=== PATIENT | male | born 1955 | race Caucasian/White ===

== ENCOUNTER 2017-12-07 07:40 | Day surgery (SDC) | payer OTHER, SELFPAY ==
[2017-12-07 07:59] VITALS: BP 142/70; PULSE 85; RESP 14; TEMP 36.7; O2SAT 96; BMI 23.6
[2017-12-07] MEDS: MethylPREDNISolone Acetate 80 MG/ML Vial (08:56)
[2017-12-07] MEDS: Bupivacaine 0.25% 30 ML Vial (08:56)
--- NOTE | 2017-12-07 09:00 | RAD_ITS ---
PROCEDURE: Cervical facet joint block. DATE OF EXAMINATION: December 07, 2017. INDICATION: Male, 62 years old. Chronic neck pain. FLUOROSCOPY TIME (if supplied): (0:11) minutes/seconds Intraoperative fluoroscopic imaging provided for left C4-C7 facet joint block. RAD/Cerv Spine 2 or 3 Views IMPRESSION: Intraoperative imaging provided for left C4-C7 facet joint block. Electronically Signed: Georgi Marcus MD at 9:46 EST Tel [phone], Service support ,
[2017-12-07 09:17] VITALS: BP 142/70; PULSE 88; RESP 16; TEMP 36.8; O2SAT 97
[2017-12-07 09:20] VITALS: BP 113/65; BP 142/70; PULSE 85; RESP 16; O2SAT 95
[2017-12-07 09:25] VITALS: BP 113/70; BP 142/70; PULSE 82; RESP 16; O2SAT 96
[2017-12-07 09:30] VITALS: BP 123/77; BP 142/70; PULSE 80; RESP 16; TEMP 36.7; O2SAT 95
[2017-12-07 09:55] VITALS: BP 142/70
--- NOTE | 2017-12-07 13:27 | OP.PCM_ITS ---
Problem List (1) Cervical spondylosis Status: Chronic (2) Degenerative disc disease, cervical Status: Chronic Report of Operation Date of Procedure: 12/07/17 Pre-Operative Diagnosis: Cervical spondylosis, cervical degenerative disc disease, cervical facet arthropathy Post-Operative Diagnosis: Cervical spondylosis, cervical degenerative disc disease, cervical facet arthropathy Surgery/Procedure Performed:: Left cervical facet steroid injection C4, C5, C6, C7 Description of Surgical Findings:: PROCEDURE: Left-sided cervical facet steroid injection C4, C5, C6, C7 PREOPERATIVE DIAGNOSES: Cervical spondylosis, cervical degenerative disc disease, and cervical facet arthropathy POSTOPERATIVE DIAGNOSES: Cervical spondylosis, cervical degenerative disc disease, and cervical facet arthropathy ANESTHESIA: MAC COMPLICATIONS: None BLOOD LOSS: Minimal PROCEDURE IN DETAIL: History and physical today was reviewed. Risks and benefits of the procedure were explained. The patient understood, agreed to our procedure, and informed consent was obtained. IV inserted per routine protocol. The patient was taken to the operating room, placed in a prone position with a pillow positioned underneath the chest. The neck area was prepped and draped in a sterile fashion using iodine x3. Under fluoroscopy guidance, on AP view, C4 through C7 vertebral bodies were visualized. . Under direct visualization with fluoroscopy at approximately 15-degree angle, starting on the left C4, ending on the left C7, passing through the C5-C6 using a 25-gauge 3-1/2 inch spinal needle, the needle was passed through the skin. The tip of the needle was maneuvered and directed towards the apophyseal junction of each corresponding vertebra. Once the tip of the needle was at the vicinity of the medial branch and in contact with the bone, the needle was redirected more lateral towards the medial branch. Once in contact with the medial branch, the stylet of each needle was then removed. After negative aspiration of blood with CSF and confirmation of AP as well as oblique view, a total of 3 mL of preservative- free 0.25% Marcaine with 80 mg Depo-Medrol was injected in divided doses between those 4 levels. The needles were then removed intact. The patient experienced no signs or symptoms of intrathecal, intravascular injection. The patient experienced no paraesthesia. The procedure was completed without any apparent Difficulty or complication the patient appeared to tolerate well. ASSESSMENT AND PLAN: This is a 48-year-old Male with cervical spondylosis, cervical degenerative disc disease, and cervical facet arthropathy, status post left-sided cervical facet steroid injection C4 through C7. The patient will continue her current medications. The patient will follow up in approximately 2 weeks fo reevaluation.
== END 2017-12-07 09:56 | disposition home or self-care (01) ==
LOC: SDC 07:40 → AC 07:42
PROVIDERS: Family Provider Family Medicine; PCP Family Medicine; Visit Provider Anesthesiology Pain Medicine
PROC: 3E0U3BZ Introduction of Anesthetic Agent into Joints, Percutaneous Approach (ICD-10-PCS; CPT 64490; principal; 2017-12-07 08:55)
DX: M47.812 Spondylosis without myelopathy or radiculopathy, cervical region (principal); M50.30 Other cervical disc degeneration, unspecified cervical region; K21.9 Gastro-esophageal reflux disease without esophagitis; F17.200 Nicotine dependence, unspecified, uncomplicated
CPT/HCPCS: 64490; 72040; J7120

== ENCOUNTER 2017-12-27 09:42 | Emergency (ER) | payer OTHER, SELFPAY ==
[2017-12-27 09:43] VITALS: BP 150/81; PULSE 72; RESP 16; TEMP 36.6; O2SAT 98; BMI 23.5
--- NOTE | 2017-12-27 10:17 | ED.VISSUMM ---
- ER Visit Summary Date of Service: 12/27/17 Chief Complaint: Back pain History of Present Illness: The patient is a [address] Mora. He reports that he has lower back pain began approximately 1 week ago. It is an aching, stabbing pain in his lower back with radiation down his left leg to the level of the calf. Reports pain is 10 out of 10 at worst and 8 out of 10 currently. Is worsened by standing up straight or straightening out. Is relieved by sitting and ibuprofen. He denies any numbness or weakness in his legs. No problems with his bowels or his bladder. No groin numbness. No fever, chills, or abdominal pain. No recent trauma. No fall, MVA, or change in activity. Physical Examination: Vitals: Stable. Afebrile. General: A&O x 3. NAD. Cardiovascular exam: Regular rate and rhythm, no murmur, rub or gallop. Respiratory exam: Clear to auscultation bilaterally. No wheezes or stridor. Abdominal exam: Soft, nontender, nondistended, normal bowel sounds. No peritoneal signs. Back: Diffuse mild tenderness to palpation over the lumbar spine and the paraspinous musculature in the lumbar region. No point tenderness. Moderate tenderness to palpation in the left sciatic notch. Positive straight leg raise on the left at approximately 10?. 5/5 DF, PF, EHL bilaterally. Normal sensation to light touch throughout. Extremity: No clubbing, cyanosis, or edema. Emergency Department Course and Treatment: An [facility] report was obtained which shows only had 3 prescriptions for opiates in the past year. He is treated with morphine and Toradol IM here. Treatment Plan: The patient will be discharged with Gravity and Neurontin. Instructed to follow-up Dr. Mora in 1 week if not improving. Return to the emergency department for any worsening symptoms. Disposition: To home in improved and stable condition. Impression: 1. Acute sciatica on left. This note was generated with [employer] dictation software. It may contain incorrect words, spelling, and punctuation that were not noted in review of the chart prior to signing ED Disposition - Plan for ED Patient: Chief Complaint: Back Instructions: ED Sciatica Prescriptions: Hydrocodone Bitart/Apap 5-325 [Gravity 5/325] 1 - 2 tablet PO Q4H PRN PRN 3 Days #20 tablet PRN Reason: Pain Gabapentin [Neurontin] 300 mg PO QHS #7 capsule Referrals: Alexandre Mora MD [Primary Care Provider] - 1 Week if not improving
[2017-12-27] MEDS: Ketorolac 60 MG/2 ML Vial IM (10:52)
[2017-12-27] MEDS: HYDROmorphone 1 MG/ML Syringe IM (10:52)
[2017-12-27 11:26] VITALS: BP 140/76; PULSE 77; RESP 18; O2SAT 98
== END 2017-12-27 11:30 | disposition home or self-care (01) ==
LOC: ED 11:17
PROVIDERS: Emergency Provider Emergency Medicine; Family Provider Family Medicine; PCP Family Medicine
DX: M54.9 Dorsalgia, unspecified (principal); M54.32 Sciatica, left side; F17.200 Nicotine dependence, unspecified, uncomplicated
CPT/HCPCS: 99282

== ENCOUNTER 2018-01-18 06:17 | Day surgery (SDC) | payer OTHER, SELFPAY ==
[2018-01-18 06:33] VITALS: BP 144/77; PULSE 70; RESP 18; TEMP 36.7; O2SAT 99; BMI 23.1
--- NOTE | 2018-01-18 07:45 | RAD_ITS ---
STUDY: X-RAY - CERVICAL SPINE REASON FOR EXAM: Male, 62 years old. Left C4-C7 radiofrequency ablation. TECHNIQUE: 12 coned-down intraoperative view(s) of the cervical spine were obtained. COMPARISON: None FINDINGS: Imaging provided for left C4-C7 radiofrequency ablation. RAD/Cerv Spine 4 or 5 Views IMPRESSION: Imaging provided for intraoperative ablation at the C4-C7 levels. Electronically Signed: Georgi Marcus MD at 11:14 EDT Tel [phone], Service support ,
[2018-01-18] MEDS: MethylPREDNISolone Acetate 80 MG/ML Vial (08:01)
[2018-01-18] MEDS: Bupivacaine 0.25% 30 ML Vial (08:01)
[2018-01-18 08:30] VITALS: BP 120/71; BP 144/77; PULSE 95; RESP 16; TEMP 36.4; O2SAT 98
[2018-01-18 08:35] VITALS: BP 103/63; BP 144/77; PULSE 95; RESP 16; O2SAT 97
[2018-01-18 08:40] VITALS: BP 144/77; BP 93/62; PULSE 88; RESP 16; O2SAT 96
[2018-01-18 08:45] VITALS: BP 110/66; BP 144/77; PULSE 88; RESP 16; TEMP 36.6; O2SAT 96
[2018-01-18 09:05] VITALS: BP 144/77
--- NOTE | 2018-01-18 10:15 | OP.PCM_ITS ---
Problem List (1) Cervical spondylosis Status: Chronic (2) Degenerative disc disease, cervical Status: Chronic Report of Operation Date of Procedure: 01/18/18 Pre-Operative Diagnosis: Cervical spondylosis, cervical degenerative disc disease, cervical facet arthropathy Post-Operative Diagnosis: Cervical spondylosis, cervical degenerative disc disease, cervical facet arthropathy Surgery/Procedure Performed:: Left-sided radiofrequency ablation of the cervical medial branch at C4, C5, C6, C7 Description of Surgical Findings:: PROCEDURE: Left-sided cervical radiofrequency ablation of the medial branch C4, C5, C6, C7 PREOPERATIVE DIAGNOSES: Cervical spondylosis, cervical degenerative disc disease, and cervical facet arthropathy POSTOPERATIVE DIAGNOSES: Cervical spondylosis, cervical degenerative disc disease, and cervical facet arthropathy ANESTHESIA: MAC COMPLICATIONS: None BLOOD LOSS: Minimal PROCEDURE IN DETAIL: History and physical today was reviewed. Risks and benefits of the procedure were explained. The patient understood, agreed to our procedure, and informed consent was obtained. IV inserted per routine protocol. The patient was taken to the operating room, placed in a prone position with a pillow positioned underneath the chest. The neck area was prepped and draped in a sterile fashion using iodine x3. Under fluoroscopy guidance, on AP view, C4 through C7 vertebral bodies were visualized. Skin and subcutaneous tissues were anesthetized with approximately 10 mL of 1% lidocaine using a 25- gauge regular needle. Under direct visualization with fluoroscopy at approximately 15-degree angle, starting on the left C4, ending on the left C7, passing through the C5-C6 using a 20-gauge 10 cm with a 10 mm curved active tip radiofrequency ablation needle, the needle was passed through the skin. The tip of the needle was maneuvered and directed towards the apophyseal junction of each corresponding vertebra. Once the tip of the needle was at the vicinity of the medial branch and in contact with the bone, the needle was redirected more lateral towards the medial branch, confirmation was obtained on lateral view and the needle was advanced towards the trapezoid approximately midway once in contact with the medial branch, the stylet of each needle was then removed. After negative aspiration of blood with CSF and confirmation of AP as well as oblique view, the radiofrequency ablation probe was then inserted at each level. Impedance was then recorded at C4 to be 216, at C5 232, at C6 204, at C7 217 ohms. Motor-evoked potential was then initiated to 1.5 volt without any motor response at each corresponding level or the left arm. The radiofrequency ablation probe was then removed intact and a total of 4 mL preservative-free 1% lidocaine was injected in divided doses between those 4 levels after negative aspiration of blood with CSF. The radiofrequency ablation probe was then reinserted after confirmation of AP, oblique as well as lateral view. Radiofrequency ablation was then initiated to 80 degrees Celsius for 60 seconds at each level. Once concluded, the probe was then removed intact and a total of 3 mL of preservative-free 0.25% Marcaine with 40 mg Depo-Medrol was injected in divided doses between those 4 levels. The needles were then removed intact. The patient experienced no signs or symptoms of intrathecal, intravascular injection. The patient experienced no paraesthesia. The procedure was completed without any apparent difficulty, any complication. The patient appeared to tolerate well. Sensory as well as motor exam was unchanged from prior to procedure. ASSESSMENT AND PLAN: This is a 62-year-old Male with cervical spondylosis, cervical degenerative disc disease, and cervical facet arthropathy, status post left-sided radiofrequency ablation of the medial branch C4 through C7. The patient will continue his current medications. The patient will follow up in approximately 2 weeks fo reevaluation.
== END 2018-01-18 09:05 | disposition home or self-care (01) ==
LOC: SDC 06:18 → AC 06:19
PROVIDERS: Family Provider Family Medicine; PCP Family Medicine; Visit Provider Anesthesiology Pain Medicine
PROC: (CPT 64633; principal; 2018-01-18 07:45)
DX: M47.812 Spondylosis without myelopathy or radiculopathy, cervical region (principal); M50.320 Other cervical disc degeneration, mid-cervical region, unspecified level; Z79.82 Long term (current) use of aspirin; M48.02 Spinal stenosis, cervical region; M50.30 Other cervical disc degeneration, unspecified cervical region; M54.12 Radiculopathy, cervical region; M48.9 Spondylopathy, unspecified; M79.1 Myalgia; F41.9 Anxiety disorder, unspecified; K21.9 Gastro-esophageal reflux disease without esophagitis; F32.9 Major depressive disorder, single episode, unspecified; F17.200 Nicotine dependence, unspecified, uncomplicated; Z79.891 Long term (current) use of opiate analgesic
CPT/HCPCS: 01936; 64633; 64634 ×3; 72050; 76000; J7120

== ENCOUNTER → 2018-07-02 12:10 | Outpatient (CLI) | payer SELFPAY ==
--- NOTE | 2018-07-02 | LES_PTH ---
PATIENT: LUIS WASSERMAN LOC: [facility] U#:[id number] AGE/SX: 70/M ROOM: RE07/02/[address]: Dr. Caesar Jackson MD : 1955 BED: DIS: SPEC #: [id number] RECD: 07/02/18 12:04 STATUS: JAYLIN ELI #: [id number] LISETTE: 07/02/18 00:[address]: Caesar Jackson DEPT: SURGICAL PATHOLOGY RECD BY: Lazaro Chaudhry Tissues: Skin of face, NOS Procedures: Surgery Specimen Level IV HEADER OPERATION: Punch biopsy / FNA PRE-OP DIAGNOSIS: Neoplasm of face TISSUE SUBMITTED: Punch biopsy left cheek MICROSCOPIC DIAGNOSIS Left cheek, punch biopsy: Solar elastosis. Dermal chronic inflammation. Negative for malignancy. SJ:marlyn 07/06/18 COMMENT If there is a high suspicion of malignancy, excision of the lesion is suggested if clinically indicated. This case has been reviewed in consultation with Dr. Menezes who concurs with the above diagnosis. MICROSCOPIC DESCRIPTION Slides are reviewed. GROSS DESCRIPTION Received is one container labeled with the patient's name and not further designated. The specimen consists of a single elongated fragment of morley tissue measuring 0.5 x 0.2 x 0.2 cm. The specimen is totally submitted in one cassette. / AM:marlyn 07/02/18 TC:5 [facility]: [id number]
--- NOTE | 2018-07-02 | ASPS_PTH ---
PATIENT: LUIS WASSERMAN LOC: [facility] U#:[id number] AGE/SX: 70/M ROOM: RE07/02/[address]: Dr. Caesar Jackson MD : 1955 BED: DIS: SPEC #: [id number] RECD: 07/02/18 12:04 STATUS: JAYLIN ELI #: [id number] LISETTE: 07/02/18 00:[address]: Caesar Jackson DEPT: CYTOLOGY RECD BY: Lazaro Chaudhry Tissues: Cheek, NOS Procedures: Pap Stain (control) Special Stain Group II Cytology Other HEADER OPERATION: Punch biopsy / FNA PRE-OP DIAGNOSIS: Neoplasm of face TISSUE SUBMITTED: FNA left cheek 6 slides DIAGNOSIS CYTOLOGY Left cheek, FNA (smears): Negative for malignant cells. The specimen entirely consists of blood only. SJ:marlyn 07/06/18 COMMENT Please correlate with corresponding surgical specimen ([id number]) left cheek, punch biopsy with diagnosis of negative for malignancy, solar elastosis and dermal chronic inflammation. CYTOLOGY STUDY Slides are reviewed. CYTOLOGY GROSS Received are six smears labeled with the patient's name and designated per the requisition as FNA left cheek. Submitted for staining. 07/02/18 TC: Joseph code CPT: 11289
== END ==
PROVIDERS: Visit Provider Surgery
DX: D48.7 Neoplasm of uncertain behavior of other specified sites (principal)
CPT/HCPCS: 88161; 88172; 88305; 88313

== ENCOUNTER → 2018-07-03 09:14 | Outpatient (CLI) | payer OTHER, SELFPAY | PROVIDERS: Family Provider Family Medicine; PCP Family Medicine; Visit Provider Surgery | DX: D49.89 Neoplasm of unspecified behavior of other specified sites (principal) ==

== ENCOUNTER 2018-07-09 20:19 | Emergency (ER) | payer OTHER, SELFPAY ==
[2018-07-09 20:20] VITALS: BP 148/80; PULSE 89; RESP 16; TEMP 37.2; O2SAT 98; BMI 22.1
--- NOTE | 2018-07-09 21:20 | ED.RN ---
PT CAME OUT OF TRIAGE ROOM 2 WHERE HE WAS PLACED FOR PATIENT COMFORT FOR A DARK ROOM AND SOFT NOISE,AND STATED HE WAS STARTING TO FEEL BETTER. HE STATED HE WOULD PREFER TO GO HOME AND PUT A COOL WASH CLOTH OVER HIS HEAD. PT WAS ENCOURAGED TO COME BACK IF HE WAS NOT FEELING BETTER OR WITH WORSENING SYMPTOMS. PT STATED HE WOULD DO SO.
== END 2018-07-09 21:42 | disposition left against medical advice (07) ==
PROVIDERS: Emergency Provider Emergency Medicine; Family Provider Family Medicine; PCP Family Medicine
DX: R69 Illness, unspecified (principal)

== ENCOUNTER 2018-09-05 18:56 | Emergency (ER) | payer OTHER, SELFPAY ==
[2018-09-05 18:57] VITALS: BP 97/63; PULSE 111; RESP 17; TEMP 36.4; O2SAT 95; BMI 22.3
[2018-09-05 19:05] VITALS: RESP 16
--- NOTE | 2018-09-05 19:26 | ED.VISSUMM ---
- ER Visit Summary Date of Service: 09/05/18 Chief Complaint: Nausea and vomiting History of Present Illness: The patient is a 63 M with nausea and vomiting for the past 3 or 4 hours. He has non-small cell lung CA stage III last chemotherapy was 2 weeks ago. He has some epigastric pain. He has no fever or chills. He has no cough or congestion. No shortness of breath or chest pain. He has no urinary symptoms. He has no flank pain. He has no rash. He has no headache. He does feel weak and lightheaded especially when he stands up. Physical Examination: Patient appears in some distress, he appears chronically ill but not toxic Dry mucous membranes, no obvious facial deformity No C-spine tenderness supple neck. Regular rate and rhythm without any obvious murmurs Worse lungs bilaterally speaking in full sentences without any obvious respiratory distress Abdomen soft with slight epigastric tenderness, no guarding or rebound Moves all extremities without any difficulty or pain. Skin does not show any obvious rashes or lesions, no trauma. Alert oriented ?3 with no gross focal deficit Emergency Department Course and Treatment: Received analgesics and antiemetic and IV fluids. He feels much better. He wants to go home. His workup is unremarkable. I will discharge him with antiemetics and analgesics. He will call his oncologist tomorrow Disposition: Discharge stable condition Impression: Nausea vomiting Dehydration Stage III non-small cell lung CA This note was generated with [employer] dictation software. It may contain incorrect words, spelling, and punctuation that were not noted in review of the chart prior to signing ED Disposition - Plan for ED Patient: Disposition: Home or Assisted Living Chief Complaint: Nausea/Vomiting Instructions: ED Nausea Vomiting Prescriptions: Oxycodone HCl/Acetaminophen [Percocet 5/325] 1 tab PO Q6H PRN PRN 3 Days #12 tab PRN Reason: Pain Ondansetron [Zofran Odt] 4 mg PO 4X/DAY PRN PRN #20 tab.rapdis PRN Reason: Nausea Referrals: Alexandre Mora MD [Primary Care Provider] - 3-5 Days
[2018-09-05] MEDS: 0.9% Normal Saline 1,000 ML 1000 ML IV (19:30)
[2018-09-05] MEDS: Ondansetron 4 MG/2 ML Vial IV (19:31)
[2018-09-05] MEDS: HYDROmorphone 1 MG/ML Syringe IV (19:33)
[2018-09-05 20:06] LABS: Absolute Lymphocyte Count 0.25 X10^3/ul (0.83-4.51); Absolute Neutrophil Count 1.9 X10^3/uL (2.0-7.7); Basophil# 0.01 X10^3/uL; Basophil% 0.4 % (0-1); Eosinophil# 0.01 X10^3/uL; Eosinophils% 0.4 % (0-5); Hematocrit 36.4 % (40-54); Hemoglobin 12.6 g/dl (13.0-16.5); Lymphocyte # 0.25 X10^3/ul (4.0); Lymphocyte % 9.7 % (19-41); Mean Corp Hgb Conc 34.6 g/gl (32-36); Mean Corpuscular Hgb 32.5 pg (27.0-32.0); Mean Corpuscular Volume 93.8 fL (80-94); Mean Platelet Vol. 9.5 fl (6.2-12.0); Monocyte# 0.42 X10^3/uL; Monocyte% 16.3 % (0-10); Neutrophil # 1.87 X10^3/uL (2.7-7.7); Neutrophil % 72.8 % (47-70); Platelet Count 148 K/mm3 (150-450); RBC Distribution Width CV 13.7 % (11.6-14.6); RBC Distribution Width SD 45.5 fl (35.1-43.9); Red Blood Count 3.88 M/mm3 (4.6-6.2); White Blood Count 2.6 K/mm3 (4.4-11.0)
[2018-09-05 20:08] LABS: ALB/GLOB Ratio 0.9 RATIO (0.9-2.4); AST(SGOT) 19 U/L (15-37); Alanine Aminotransfer ALT/SGPT 18 U/L (16-61); Albumin, Serum 3.5 g/dL (3.2-5.0); Alkaline Phosphatase 66 U/L (45-117); Anion Gap 8 (5-15); BUN 11 mg/dL (7-18); BUN/Creat Ratio 15.6 RATIO (10-20); Calcium,Total 8.6 mg/dL (8.5-10.1); Chloride 100 mmol/L (98-107); Creatinine, Serum 0.71 mg/dL (0.70-1.30); EST Glomerular Filtration Rate 120 mL/min (>60); Est Glom Filt Rate - Afr Amer 146 mL/min (>60); Estimated Creatinine Clearance 112.16 ml/min; Globulin 4.1 g/dL (2.2-4.2); Glucose 95 mg/dL (74-106); Lipase 101 U/L (73-393); Potassium 3.6 mmol/L (3.5-5.1); Protein, Total 7.6 g/dL (6.4-8.2); Sodium Level 134 mmol/L (136-145)
[2018-09-05 20:12] LABS: Differential Indicated SCAN CRITERIA MET; POSITIVE COUNT NO; POSITIVE DIFFERENTIAL YES; POSITIVE MORPHOLOGY NO
[2018-09-05 20:39] VITALS: BP 109/67; PULSE 82; RESP 16; O2SAT 98
[2018-09-05 20:39] LABS: Anisocytosis RARE; Macrocytosis RARE; Ovalocyte RARE; Platelet Estimate ADEQUATE (ADEQ)
[2018-09-05] MEDS: HYDROcodone Bitartrate/Apap 5/325 Tablet PO (22:18)
[2018-09-05] MEDS: Ondansetron ODT 4 MG Tablet PO (22:19)
[2018-09-05 22:24] VITALS: BP 114/70; PULSE 80; RESP 16; O2SAT 97
== END 2018-09-05 22:27 | disposition home or self-care (01) ==
PROVIDERS: Emergency Provider Emergency Medicine; Family Provider Family Medicine; PCP Family Medicine
DX: R11.2 Nausea with vomiting, unspecified (principal); E86.0 Dehydration; C34.90 Malignant neoplasm of unspecified part of unspecified bronchus or lung; Z72.0 Tobacco use
CPT/HCPCS: 80053; 83690; 85025; 96361; 96374; 96375; 99282; J7030; A4216; J2405

== ENCOUNTER → 2018-10-11 12:26 | Outpatient (CLI) | payer OTHER, SELFPAY ==
[2018-09-16 11:24] VITALS: BMI 23.6
--- NOTE | 2018-10-11 12:28 | MRI_ITS ---
STUDY: MRI ORBITS WITH AND WITHOUT CONTRAST REASON FOR EXAM: Male, 63 years old. Facial TECHNIQUE: Standardized fat and water weighted pulse sequences were obtained in all 3 orthogonal planes, pre-and post contrast administration. 8 ml of Gadavist contrast material was administered intravenously for the contrast portion of the examination. COMPARISON: None. FINDINGS: Normal bilateral globes. Normal bilateral optic nerve sheath complexes and optic nerves. Normal bilateral intraconal and extraconal spaces. Normal bilateral extraocular muscles. Normal optic chiasm and post-chiasmatic tracts. Normal sella turcica, pituitary gland, infundibular stalk, and hypothalamus. Normal bilateral cavernous sinuses. Normal tectal plate and pineal gland. Normal flow voids within the major intracranial circulation suggesting patency by spin echo criteria. Normal size of the ventricles and extra-axial spaces for the patient's age. Normal white matter tracts of the supratentorial brain. Normal bilateral basal ganglia. Old lacunar infarct in left posterior thalamus There is no extra-axial fluid accumulation. Normal midbrain, doe and medulla. Normal cerebellum. Normal basal cisterns. Beads were placed to stephanie site of previously palpated nodule in 3 areas in the left infraorbital, right mandibular angle and left preauricular region There are no focal cystic or solid nodules demonstrated at the site of the placement of the origin of the MRI/Orbit Face Neck W/WO Contrast IMPRESSION: Normal enhanced and unenhanced MRI of the orbits. No cystic or solid nodules at the site of the beads placement Electronically Signed: Alexandre Frausto MD at 23:44 EST , Service support ,
== END ==
PROVIDERS: Family Provider Family Medicine; PCP Family Medicine; Referring Provider Otolaryngology; Visit Provider Otolaryngology
DX: R22.0 Localized swelling, mass and lump, head (principal)
CPT/HCPCS: 70543; A9585; A4216

== ENCOUNTER 2019-02-07 18:05 | Observation (INO) | payer OTHER, SELFPAY ==
[2018-09-16 11:24] VITALS: BMI 23.6
[2019-02-07 18:05] VITALS: BP 108/69; PULSE 99; RESP 16; TEMP 36.7; O2SAT 96; BMI 23.2
--- NOTE | 2019-02-07 18:21 | CT_ITS ---
HISTORY: LOWER BACK PAIN, hx of lung ca EXAM/TECHNIQUE: CT Spine Lumbar W/O Contrast: Multiplanar reformats. COMPARISON: 06/25/11 CT abdomen and pelvis. FINDINGS: # of images incl. paperwork: 388 No fracture or dislocation. No evidence of bony metastasis. Alignment anatomic. Interval development of complete disc space loss and prominent endplate irregularity with erosions at L3-4. Prominent but less severe disc degeneration in the partially visible lower thoracic spine and at L5-S1. No acute findings in the paraspinal soft tissues. Marked atherosclerosis with ectatic versus mildly aneurysmal infrarenal abdominal aorta not fully visible. At L1-2 and L2-3, small disc bulge and mild facet degeneration creates only mild narrowing. At L3-4, large diffuse disc bulge with underlying osteophytes and moderate bilateral facet degeneration causes likely moderate spinal canal narrowing. Vertebral body osteophytes extend into a moderately narrow the left foramen. Only mild right foraminal narrowing. At L4-5 and L5-S1, disc bulge with underlying osteophytes and mild facet degeneration causes mild spinal canal and moderate bilateral foraminal narrowing. CT/Spine Lumbar without Contrast IMPRESSION: Interval development of complete disc space loss and prominent endplate irregularity with erosions at L3-4. This most likely represents prominent focal disc degeneration. A smoldering chronic infectious or inflammatory discitis is less likely but possible. If clinically necessary, MRI lumbar spine with and without gadolinium would more definitively assess this finding and would be more sensitive for detection of metastases. No metastases are evident on this CT. Individualized dose optimization techniques were used for this CT. at 2058 Reported and signed by: Live Cota MD Electronically Signed: Live Cota, at 20:56 EDT Tel , Service support ,
[2019-02-07] MEDS: Ondansetron 4 MG/2 ML Vial IV (18:40)
[2019-02-07] MEDS: HYDROmorphone 1 MG/ML Syringe IV ×3 (18:41→23:13)
[2019-02-07 18:53] LABS: Absolute Lymphocyte Count 1.46 X10^3/ul (0.83-4.51); Absolute Neutrophil Count 3.5 X10^3/uL (2.0-7.7); Basophil# 0.02 X10^3/uL; Basophil% 0.4 % (0-1); Eosinophil# 0.07 X10^3/uL; Eosinophils% 1.3 % (0-5); Hematocrit 39.6 % (40-54); Hemoglobin 13.4 g/dl (13.0-16.5); Lymphocyte # 1.46 X10^3/ul (4.0); Lymphocyte % 26.6 % (19-41); Mean Corp Hgb Conc 33.8 g/gl (32-36); Mean Corpuscular Hgb 31.8 pg (27.0-32.0); Mean Corpuscular Volume 93.8 fL (80-94); Mean Platelet Vol. 9.1 fl (6.2-12.0); Monocyte# 0.43 X10^3/uL; Monocyte% 7.8 % (0-10); Neutrophil # 3.49 X10^3/uL (2.7-7.7); Neutrophil % 63.7 % (47-70); Platelet Count 161 K/mm3 (150-450); RBC Distribution Width CV 13.6 % (11.6-14.6); RBC Distribution Width SD 46.8 fl (35.1-43.9); Red Blood Count 4.22 M/mm3 (4.6-6.2); White Blood Count 5.5 K/mm3 (4.4-11.0)
[2019-02-07 18:57] LABS: POSITIVE COUNT NO; POSITIVE DIFFERENTIAL NO; POSITIVE MORPHOLOGY NO
[2019-02-07 19:05] LABS: BUN 12 mg/dL (7-18); Creatinine, Serum 0.78 mg/dL (0.70-1.30); Estimated Creatinine Clearance 109.16 ml/min; Glucose 76 mg/dL (74-106)
[2019-02-07 19:06] LABS: Anion Gap 7 (5-15); BUN/Creat Ratio 15.5 RATIO (10-20); Calcium,Total 8.5 mg/dL (8.5-10.1); Chloride 105 mmol/L (98-107); EST Glomerular Filtration Rate 108 mL/min (>60); Est Glom Filt Rate - Afr Amer 131 mL/min (>60); Potassium 3.6 mmol/L (3.5-5.1); Sodium Level 138 mmol/L (136-145)
[2019-02-07] MEDS: diazePAM 10 MG/2 ML Syringe 4 MG IV ×2 (19:28→23:17)
[2019-02-07 20:47] VITALS: BP 109/66; PULSE 91; RESP 16; O2SAT 92
--- NOTE | 2019-02-07 21:16 | ED.VISSUMM ---
- ER Visit Summary Date of Service: 02/07/19 Chief Complaint: [Back pain] History of Present Illness: The patient is a 63 M [presents the emergency department complaint of back pain that started earlier today. Patient states that the pain is sharp and severe and rates it a 10 out of 10. Patient states that the pain seems to be worse with movement. Patient denies any radiation of the pain to his legs. He denies numbness or tingling legs. Patient does state however that his left leg at times just does not feel like it wants to work correctly. Patient denies any falls or trauma. Patient does have a history of lung cancer stage III and is currently being medicated with chemotherapy. His last chemotherapy was 1 week ago. Patient is scheduled to have a bone scan done in 2 days. Patient also states that the chemotherapy at times has a side effect of bone pain.] Physical Examination: [HEENT-PERRLA, EOMI. Cranial nerves II through XII grossly intact. TMs clear. Mucous membranes moist. No adenopathy. Cardiovascular-regular rate and rhythm without murmur or ectopy Lungs-clear to auscultation, chest wall stable without crepitus or subcu emphysema Abdomen-normoactive bowel sounds, soft, nontender, no rebound or rigidity, no peritoneal signs. Back exam-patient has some tenderness over the lower lumbar spine on palpation. There is no erythema or warmth. Patient has negative straight leg raises. Deep tendon reflexes are plus out of 4 bilaterally at the patella and Achilles. Patient has normal L5 extension. Patient has normal sensation to light touch. Extremities-intact ?4, normal range of motion, normal pulses, atraumatic] Test Results: [CBC with differential obtained showed a white blood cell count of 5.5, hemoglobin 13, hematocrit 40, placed 161. Chemistries unremarkable. CT scan of the lumbar spine showed interval development of complete disc space loss and prominent endplate irregularity with erosions at L3-4 this most likely represents prominent focal disc degeneration a smoldering chronic infectious or inflammatory discitis is less likely but possible if clinically necessary MRI lumbar spine with and without gadolinium would more definitively assess this finding and would be more sensitive for detection of metastasis no metastasis are evident on the CT] Emergency Department Course and Treatment: [Patient was medicated with Dilaudid initially as well as Zofran. Patient continued complaint of pain and was given Valium and another milligram of Dilaudid. Patient continues to have pain.] Treatment Plan: [Admit for further management of his pain and further imaging including MRI.] Disposition: [Admit] Impression: [Intractable back pain] This note was generated with [employer] dictation software. It may contain incorrect words, spelling, and punctuation that were not noted in review of the chart prior to signing ED Disposition - Plan for ED Patient: Referrals: Alexandre oMra MD [Primary Care Provider] -
--- NOTE | 2019-02-07 22:24 | HP.PCM_ITS ---
Problem List (1) Lung cancer Status: Acute Qualifiers: Lung location: unspecified part of lung (2) Intractable back pain Status: Acute (3) Degenerative disc disease, cervical Status: Chronic (4) Cerebrovascular disease Status: Chronic Comment: Mild right internal carotid artery disease Nonspecific white matter ischemic changes (5) GERD Status: Chronic (6) Depression Status: Chronic History of Present Illness Date of Admission: 02/07/19 Chief Complaint: back pain The patient is a 63 year old male patient with a significant past medical history of lung cancer presents to the ER with severe back pain. The pain is 9/10 and began this morning describes as a sharp stabbing pain with no burning. No numbness or tingling of lower extremities. CT scan reveals severe narrowing of L3-L4. MRI has been recommended to determine if there are bony metastatic lesions. His pain is controlled with Dilaudid in the ER. He continues to smoke despite his stage 3 lung disease. No chest pain or other complaints at this time. He has been treated with 6 rounds of chemo initially beginning in July of [address] Hurt for his oncology management. Blood count and metabolic panel were within normal limits. 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 Past Medical History Past Medical History (Chronic Problems): Chronic Problems (This Medical Record has been edited. Action required.) Degenerative disc disease, cervical (Chronic) Cervical spondylosis (Chronic) Cerebrovascular disease (Chronic) Mild right internal carotid artery disease Nonspecific white matter ischemic changes GERD (Chronic) Depression (Chronic) ? Arthritis (Chronic) Allergies Penicillins Allergy (Intermediate, Verified 02/07/19 18:07) Hives (IV DYE) iodine Allergy (Verified 02/07/19 18:07) Itching WELBUTRIN Adverse Reaction (Intermediate, Uncoded 02/07/19 18:07) TACHYCARDIA Home Medications: Ambulatory Orders Medication Instructions Recorded Amitriptyline HCl [Elavil] 25 mg PO QHS 07/29/16 Gabapentin [Neurontin] 300 mg PO QHS #7 capsule 12/27/17 Albuterol Sulfate [Ventolin Hfa] 2 puff INHALATION Q6H PRN PRN 09/05/18 Diazepam 2 mg PO DAILY PRN 09/05/18 Omeprazole 20 mg PO BID 09/05/18 Ondansetron [Zofran Odt] 4 mg PO 4X/DAY PRN PRN #20 09/05/18 tab.rapdis Prochlorperazine Maleate 10 mg PO Q6H PRN PRN 09/05/18 Sucralfate [Carafate] 1 gm PO 4X/DAY 09/05/18 Umeclidinium Brm/Vilanterol Tr 1 puff INHALATION DAILY 09/05/18 [Anoro Ellipta 62.5-25 Mcg INH] Smoking Status: Current every day smoker - *Family History Maternal History Items: No pertinent history Review of Systems Constitutional: Denies: Chills, Fever, Weight Change HEENT: Denies: Head Aches, Sinus Congestion, Sinus Drainage Cardiovascular: Denies: Chest Pain, Palpitations Respiratory: Denies: Cough, Shortness of breath at rest, Sputum production Gastrointestinal: Denies: Abdominal Pain, Nausea, Vomiting Genitourinary: Denies: Dysuria Musculoskeletal: Reports: Back Pain. Denies: Joint Pain, Joint Tenderness Skin: Denies: Rash, Wounds Neurological: Denies: Numbness, Tingling, Focal weakness Psychiatric: Reports: Anxiety. Denies: Depression, Homicidal Ideations, Suicidal Ideations Hematologic/ Lymphatic: Denies: Easy Bruising, Easy Bleeding VTE Information - Inpt Only VTE Present on Admission: No VTE Mechan Device Prophylaxis: None VTE Pharm Prophylaxis ordered?: Yes Patient Problems: Active and Suspected Problems (This Medical Record has been edited. Action required.) Lung cancer (Acute) Intractable back pain (Acute) - Physical Exam General: Alert, Oriented x3, Cooperative HEENT: Atraumatic, Normocephalic Neck: Supple Lungs: Clear to auscultation, Normal air movement Cardiovascular: Regular rate, Normal S1, Normal S2, No murmurs Abdomen: Bowel Sounds Present Extremities: No edema Skin: No rashes Musculoskeletal: Tenderness - low back pain, negative straight leg raise, motor function of distal lower extremities intact Neurological: Neuro grossly intact Psych/Mental Status: Normal Affect, Appropriate Vital Signs Temp Pulse Resp BP Pulse Ox 98.0 F 91 16 109/66 92 02/07/19 18:05 02/07/19 20:47 02/07/19 20:47 02/07/19 20:47 02/07/19 20:47 Oxygen Delivery Method Room Air Weight: 171 lb 1.259 oz Body Mass Index (BMI) 23.2 Laboratory Tests Past 24 Hrs 02/07/19 02/07/19 18:45 18:45 WBC 5.5 RBC 4.22 L Hgb 13.4 Hct 39.6 L MCV 93.8 MCH 31.8 MCHC 33.8 RDW 13.6 RDW Differential 46.8 H Plt Count 161 MPV 9.1 Immature Gran % (Auto) 0.200 Neut % (Auto) 63.7 Lymph % (Auto) 26.6 [place] % (Auto) 7.8 Eos % (Auto) 1.3 Baso % (Auto) 0.4 Absolute Neuts (auto) 3.5 Absolute Lymphs (auto) 1.46 Total Counted Not Reportable Sodium 138 Potassium 3.6 Chloride 105 Carbon Dioxide 26.0 Anion Gap 7 BUN 12 Creatinine 0.78 Estim Creat Clear Calc 109.16 Est GFR (MDRD) Af Amer 131 Est GFR (MDRD) Non-Af 108 BUN/Creatinine Ratio 15.5 Glucose 76 Calcium 8.5 Assessment/Plan All Active Problems (This Medical Record has been edited. Action required.) Lung cancer (Acute) Intractable back pain (Acute) Chronic Problems (This Medical Record has been edited. Action required.) Degenerative disc disease, cervical (Chronic) Cervical spondylosis (Chronic) Cerebrovascular disease (Chronic) Mild right internal carotid artery disease Nonspecific white matter ischemic changes GERD (Chronic) Depression (Chronic) ? Arthritis (Chronic) Plan 1. Acute Back Pain-- Dilaudid 1mg IV q 3hrs prn pain, regular diet, MRI lower back in am, diazepam 5mg po BID prn give am dose 30 minutes prior to MRI 2. Smoking-- cessation encouraged ([id number]) nicoderm patch ordered continue routine medications for stable medical conditions DVT prophylaxis-- SCDs Code Visit Inpatient E&M: 84088 Init Hosp L3
[2019-02-07 22:30] VITALS: BMI 20.6
--- NOTE | 2019-02-07 22:41 | MRI_ITS ---
STUDY: MRI LUMBAR SPINE WITH AND WITHOUT CONTRAST REASON FOR EXAM: Male, 63 years old. Severe back pain, history of lung cancer TECHNIQUE: Standardized fat and water weighted pulse sequences were obtained in the sagittal and axial planes. 13 IV Dotarem was administered for the contrast portion of the examination. COMPARISON: CT lumbar spine 02/07/2019 at 06/25/2011 FINDINGS: T12-L1: Normal endplates. Normal disc height, hydration and morphology. Normal bilateral facet joints. Normal central canal and bilateral lateral recesses. Normal bilateral intervertebral neural foramina. Normal lumbar lordosis. There is no substantial scoliosis. Normal conus medullaris that terminates at the L1 level L1-2: Normal endplates. There is mild annular disc bulge and bilateral facet arthrosis. No central canal or foraminal narrowing. L2-3: Normal endplates. There is mild annular disc bulge and bilateral facet arthrosis. No central canal or foraminal narrowing. L3-4: There is marked intervertebral disc space narrowing and disc desiccation. There are Modic changes of the endplates with mild erosion. There is no abnormal enhancement on postcontrast imaging to suggest discitis or osteomyelitis. There is annular disc bulge and posterior disc osteophyte complex, moderate bilateral facet arthrosis. Mild central canal narrowing. Moderate to marked left and mild right foraminal narrowing L4-5: Normal endplates. Mild annular disc bulge and bilateral facet arthrosis. No central canal narrowing. Moderate bilateral foraminal narrowing.. L5-S1: There is marked intervertebral disc space narrowing and disc desiccation. There is mild annular disc bulge and small posterior disc osteophyte complex. No central canal narrowing. Mild bilateral facet arthrosis. Moderate to marked bilateral foraminal narrowing. Normal visualized sacral ala. Normal visualized paraspinous soft tissue structures. No enhancing abnormality. MRI/Spine Lumbar W/WO Contrast IMPRESSION: No evidence of discitis or osteomyelitis. No metastases. Multilevel degenerative disc disease is most prominent at L3-L4 and L5-S1 as described above. Electronically Signed: Makayla Lopez, at 9:55 EDT Tel , Service support ,
[2019-02-07 22:52] VITALS: BMI 20.6
[2019-02-07 22:54] VITALS: BP 124/82; PULSE 92; RESP 18; TEMP 36.7; O2SAT 95
[2019-02-07] MEDS: Amitriptyline 25 MG Tablet PO (23:14)
[2019-02-07] MEDS: Pantoprazole Sodium 20 MG Tablet PO (23:14)
[2019-02-07] MEDS: Gabapentin 300 MG Capsule PO (23:14)
[2019-02-07 23:35] VITALS: O2SAT 85
[2019-02-07] MEDS: Ipratropium/Albuterol Sulfate 3 ML AMPUL.NEB INHALATION (23:49)
[2019-02-07 23:50] VITALS: PULSE 93; RESP 18
[2019-02-08] VITALS (7 sets, daily range): BP systolic 106–133; BP diastolic 69–81; PULSE 80–97; RESP 14–18; TEMP 36.9–37.3; O2SAT 92–97
[2019-02-08] MEDS: HYDROmorphone 1 MG/ML Syringe IV ×4 (03:25→16:04)
[2019-02-08] MEDS: 0.9% NaCl VAD Flush 10 ML IV ×6 (03:25→16:04)
[2019-02-08] MEDS: Sucralfate 1 GM Tablet PO ×4 (06:35→21:12)
[2019-02-08] MEDS: Ipratropium/Albuterol Sulfate 3 ML AMPUL.NEB INHALATION ×3 (07:17→19:49)
[2019-02-08] MEDS: diazePAM 10 MG/2 ML Syringe 4 MG IV (08:16)
--- NOTE | 2019-02-08 08:22 | NURSING ---
leaving unit via for mri
--- NOTE | 2019-02-08 09:44 | PCM.PROGNOTE ---
Patient Problems: Active and Suspected Problems (This Medical Record has been edited. Action required.) Lung cancer (Acute) Intractable back pain (Acute) Subjective: The patient is a 63-year-old male with a past medical history of lung cancer, degenerative disc disease, cerebrovascular disease, GERD and depression who presented to the emergency department at [facility] on 02/07/2019 complaining of intractable back pain. His oncologist is Dr. Almendarez. The pain was described as 9/10. It is sharp and stabbing. He has no radicular symptoms of his lower extremities. A CT scan of the lumbosacral spine showed an interval development of complete disc space loss and prominent endplate irregularity with erosions at L3-4. No metastatic lesions were evident on the CT scan. CBC was unremarkable. BMP was within normal limits. The calcium is 8.5 and there was no albumin level drawn. He was admitted to the hospital with a diagnosis of intractable low back pain and started on Dilaudid 1 mg IV every 3 hours as needed. He was also started on diazepam 5 mg p.o. twice daily as needed muscle spasms and anxiety. Afebrile since admission Vital signs are stable Pulse ox is 92-95% on room air. He has been having bone pain since he was recently started on a new drug....can not recall the name but, he gets an IV infusion every 2 weeks. He has had aching in his legs in the recent past and has also had the back pain. He tells me that he has pain radiating down the posterior thigh on the right side and he gets tingling in his left foot at times. He states it feels similar to when he had sciatica. He has tried gabapentin in the past with no improvement. No recent falls. Denies fever, chills, night sweats. He continues to smoke but, he is down to 3 cigarettes a day. He has a nicotine patch and he is using Chantix. The MRI shows no evidence of infection or metastatic disease. There is bony erosion at L3-L4 with disc space narrowing and foraminal stenosis bilaterally and central canal stenosis. He also has significant foraminal stenosis and disc space narrowing at L5-S1. - Physical Exam General: Alert, Oriented x3, Cooperative HEENT: Atraumatic, PERRLA, Normocephalic Oral: Dry Mucosa Neck: Supple, Trachea Midline Lungs: Diminished, Wheezes - mild with inspiration, no rales, - - Not tachypneic, no accessory muscle use, no conversational dyspnea. Patient tells me that he has a cough that comes and goes and used to have brownish sputum but it is currently clear. Cardiovascular: Regular rate, Regular Rhythm, Normal S1, Normal S2, No murmurs, No Gallop Abdomen: Bowel Sounds Present, Soft, Non Tender, Non-Distended Extremities: No clubbing, No cyanosis, No edema Skin: No rashes Neurological: Cranial nerves II-XII grossly intact, Neuro grossly intact Psych/Mental Status: Normal Affect, Appropriate Vital Signs Temp Pulse Resp BP Pulse Ox 98.5 F 97 14 124/81 H 92 02/08/19 08:20 02/08/19 08:20 02/08/19 08:20 02/08/19 08:20 02/08/19 08:20 Oxygen Flow Rate (L/min) 3 Oxygen Delivery Method Room Air Weight: 150 lb 2.157 oz Body Mass Index (BMI) 20.6 Intake and Output for Last 24 Hours 02/06/19 02/07/19 02/08/19 23:59 23:59 23:59 Intake Total 240 / 240 Balance 240 / 240 Laboratory Tests Past 24 Hrs 02/07/19 02/07/19 18:45 18:45 WBC 5.5 RBC 4.22 L Hgb 13.4 Hct 39.6 L MCV 93.8 MCH 31.8 MCHC 33.8 RDW 13.6 RDW Differential 46.8 H Plt Count 161 MPV 9.1 Immature Gran % (Auto) 0.200 Neut % (Auto) 63.7 Lymph % (Auto) 26.6 [place] % (Auto) 7.8 Eos % (Auto) 1.3 Baso % (Auto) 0.4 Absolute Neuts (auto) 3.5 Absolute Lymphs (auto) 1.46 Total Counted Not Reportable Sodium 138 Potassium 3.6 Chloride 105 Carbon Dioxide 26.0 Anion Gap 7 BUN 12 Creatinine 0.78 Estim Creat Clear Calc 109.16 Est GFR (MDRD) Af Amer 131 Est GFR (MDRD) Non-Af 108 BUN/Creatinine Ratio 15.5 Glucose 76 Calcium 8.5 Medical Necessity - Tobacco Use Smoking Status: Current every day smoker Assessment/Plan All Active Problems (This Medical Record has been edited. Action required.) Lung cancer (Acute) Intractable back pain (Acute) Impressions 1. intractable low back pain with radicular pain due to DDD with foraminal stenosis and also canal stenosis at L3-4. There are endplate erosions at L3- L4. No Mets and no evidence of infection 2. Stage 3 non small cell lung CA. Had 6 rounds of chemo and 6 rounds radiation and is now on a drug he can not recall the name of every 2 weeks. 3. tobacco dependence - trying to quit with a nicotine patch and chantix 4. GERD 5. Depression 6. Spondylosis cervical spine and lumbar spine Prednisone 60 mg p.o. daily Motrin 600 mg p.o. every 8 hours OxyIR 10 mg p.o. every 4 hours as needed pain Continue as needed Dilaudid Chantix 0.5 mg twice daily Obtain recent progress notes from Dr. Almendarez If the prednisone is effective in controlling his pain he would be a good candidate for an epidural injection and will likely refer to Dr. Dr. Wong or Dr. Dhaliwal for treatment going forward. Code Visit Inpatient E&M: 90508 Subs Hosp L2
[2019-02-08] MEDS: Pantoprazole Sodium 20 MG Tablet PO ×2 (09:49→21:13)
[2019-02-08 11:43] LABS: Erythrocyte Sedimentation Rate 16 mm/hr (0-20)
[2019-02-08 12:02] LABS: AST(SGOT) 20 U/L (15-37); Alanine Aminotransfer ALT/SGPT 16 U/L (16-61); Albumin, Serum 3.4 g/dL (3.2-5.0); Alkaline Phosphatase 59 U/L (45-117); Bilirubin, Direct 0.07 mg/dL (0.00-0.30); CRP 9.96 mg/L (0.0-3.0); Protein, Total 7.4 g/dL (6.4-8.2)
[2019-02-08] MEDS: predniSONE 20 MG Tablet 60 MG PO (12:10)
[2019-02-08] MEDS: oxyCODONE 5 MG Tablet 10 MG PO ×2 (12:10→21:13)
[2019-02-08] MEDS: Varenicline 0.5 MG Tablet PO ×2 (12:11→21:12)
[2019-02-08] MEDS: proCHLORPERazine 5 MG Tablet 10 MG PO (12:13)
[2019-02-08] MEDS: Ibuprofen 600 MG Tablet PO ×2 (15:35→21:12)
[2019-02-08] MEDS: oxyCODONE HCl Cr 10 MG Tablet PO (17:54)
[2019-02-08] MEDS: Amitriptyline 25 MG Tablet PO (21:12)
[2019-02-08] MEDS: Gabapentin 300 MG Capsule PO (21:13)
[2019-02-09] VITALS (10 sets, daily range): BP systolic 108–135; BP diastolic 61–76; PULSE 68–103; RESP 16–18; TEMP 36.3–37.1; O2SAT 93–100
[2019-02-09] MEDS: Sucralfate 1 GM Tablet PO ×2 (06:35→11:18)
[2019-02-09] MEDS: oxyCODONE HCl Cr 10 MG Tablet PO (06:36)
[2019-02-09] MEDS: Ibuprofen 600 MG Tablet PO (06:36)
[2019-02-09] MEDS: Ipratropium/Albuterol Sulfate 3 ML AMPUL.NEB INHALATION ×2 (07:11→13:03)
[2019-02-09] MEDS: Varenicline 0.5 MG Tablet PO (08:02)
[2019-02-09] MEDS: predniSONE 20 MG Tablet 60 MG PO (08:03)
[2019-02-09] MEDS: Polyethylene Glycol 3350 17 GM PACKET PO (08:03)
[2019-02-09] MEDS: Pantoprazole Sodium 20 MG Tablet PO (08:03)
[2019-02-09] MEDS: oxyCODONE 5 MG Tablet 10 MG PO (08:05)
--- NOTE | 2019-02-09 09:27 | PCM.PROGNOTE ---
Patient Problems: Active and Suspected Problems (This Medical Record has been edited. Action required.) Lung cancer (Acute) Intractable back pain (Acute) Subjective: Afebrile, vital signs stable, 96% on room air. Pain is better controlled. His last dose of IV Dilaudid was on 02/08/2019 at 4 PM. - Physical Exam Vital Signs Temp Pulse Resp BP Pulse Ox 97.9 F 74 16 129/71 H 96 02/09/19 07:59 02/09/19 07:59 02/09/19 07:59 02/09/19 07:59 02/09/19 07:59 Oxygen Flow Rate (L/min) 2 Oxygen Delivery Method Room Air Weight: 150 lb 2.157 oz Body Mass Index (BMI) 20.6 Intake and Output for Last 24 Hours 02/07/19 02/08/19 02/09/19 23:59 23:59 23:59 Intake Total 240 / 240 1420 / 1420 Balance 240 / 240 1420 / 1420 Laboratory Tests Past 24 Hrs 02/08/19 02/08/19 11:25 11:25 ESR 16 Total Bilirubin 0.30 Direct Bilirubin 0.07 AST 20 ALT 16 Alkaline Phosphatase 59 C-React Prot Ext Range 9.96 H Total Protein 7.4 Albumin 3.4 Globulin 4.0 Medical Necessity - Tobacco Use Smoking Status: Current every day smoker Assessment/Plan All Active Problems (This Medical Record has been edited. Action required.) Lung cancer (Acute) Intractable back pain (Acute)
--- NOTE | 2019-02-09 10:17 | CASEMGMT ---
Social Work Note OLIVIA met with pt, introduced self and role at [facility]. Pt is alert and orientated x4. Pt's Jodi present in room. Pt gave this worker permission to speak to him in front of his guest. Pt states that he has a one story set up at home and denied the need for any medical equipment or resources at this time. SW educated pt on Palliative Care. Pt states that he utilizes [facility] for his cancer treatment but was willing to take Palliative Care Pamphlet to review. Pt thanked this worker for Palliative Care Pamphlet, denied wanting a referral for Palliative Care made at this time. Susana Cantu MACHINE BRUSH [employer]KER, AUDIOLOGIST
[2019-02-09] MEDS: HYDROmorphone 1 MG/ML Syringe IV (14:33)
[2019-02-09] MEDS: 0.9% NaCl VAD Flush 10 ML IV (14:34)
--- NOTE | 2019-02-09 15:45 | NURSING ---
pt off of floor to get epidural block with doctor david
--- NOTE | 2019-02-09 16:00 | RAD_ITS ---
PROCEDURE: Lumbar epidural injection at L3-L4 level. DATE OF EXAMINATION: February 09, 2019. INDICATION: Male, 63 years old. Chronic back pain. FLUOROSCOPY TIME (if supplied): (0:08) minutes/seconds Fluoroscopic services provided for epidural injection at the L3-L4 level. RAD/Spine 1 View Any Level IMPRESSION: Fluoroscopic services provided for epidural injection at the L3-L4 level. Electronically Signed: Georgi Marcus, at 14:56 EDT , Service support ,
[2019-02-09] MEDS: Triamcinolone Acetonide 40 MG/ML Vial (16:20)
--- NOTE | 2019-02-09 18:08 | DCINST_ITS ---
- Discharge Diagnoses Current Active Problems: Current Active and Chronic Problems (This Medical Record has been edited. Action required.) Intractable back pain (Acute) Lumbar canal stenosis Lumbar foraminal stenosis Multilevel degenerative disc disease You will use the following diet at home:: No restrictions Your food should be the consistency of: Regular Your liquids should be the consistency of: Regular/Thin Discharge Activity: May not drive while taking narcotic pain medications. Weight Bearing Status: Full weight bearing Lifting Restrictions: no more than 5-10 lbs. Call your doctor if you observe: Fever of 101 or Higher, Shortness of breath, Dizziness, Fainting spells, Swelling in the ankles, Chest pain, Uncontrolled pain Additional Instructions: Bending, lifting and twisting exacerbate back pain so limit these activities. Avoid sitting for longer than 1 hour without getting up and moving around a little. Do NOT lift more than 5-10 lbs - this places a big strain on your back. Allergies/Adverse Reactions: Allergies Penicillins Allergy (Intermediate, Verified 02/07/19 18:07) Hives (IV DYE) iodine Allergy (Verified 02/07/19 18:07) Itching WELBUTRIN Adverse Reaction (Intermediate, Uncoded 02/07/19 18:07) TACHYCARDIA Medications to take at Discharge Amitriptyline HCl [Elavil] 25 mg PO QHS 07/29/16 Albuterol Sulfate [Ventolin Hfa] 2 puff INHALATION Q6H PRN PRN 09/05/18 Diazepam 2 mg PO DAILY PRN 09/05/18 Omeprazole 20 mg PO BID 09/05/18 Ondansetron [Zofran Odt] 4 mg PO 4X/DAY PRN PRN #20 tab.rapdis 09/05/18 Prochlorperazine Maleate 10 mg PO Q6H PRN PRN 09/05/18 Sucralfate [Carafate] 1 gm PO 4X/DAY 09/05/18 Umeclidinium Brm/Vilanterol Tr [Anoro Ellipta 62.5-25 Mcg INH] 1 puff INHALATION DAILY 09/05/18 Gabapentin [Neurontin] 300 mg PO QHS 02/07/19 Oxycodone CR [Oxycontin] 10 mg PO BID@0700,1900 3 Days #6 tab 02/09/19 Oxycodone [Oxyir] 10 mg PO Q4H PRN PRN 7 Days #50 tab 02/09/19 predniSONE tablet 60 mg PO DAILY@0800 #12 tab 02/09/19 The following prescriptions were given: Oxycodone [Oxyir] 10 mg PO Q4H PRN PRN 7 Days #50 tab PRN Reason: Severe Pain (-08/11) Oxycodone CR [Oxycontin] 10 mg PO BID@0700,1900 3 Days #6 tab predniSONE tablet 60 mg PO DAILY@0800 #12 tab Primary Care Physician: Alexandre Mora MD [Primary Care Provider] - Please follow up with your Primary Care Physician in: as needed Test Results: Test results from this visit will be discussed in further detail at your follow- up appointment, if applicable. Please Follow Up With: Laure Wong MD When: call the office tomorrow to schedule an Appt for 1-2 weeks Proposed Discharge Date: 02/09/19
--- NOTE | 2019-02-09 18:12 | DS.PCM_ITS ---
Discharge Date and Diagnosis - Problem List Patient Problems: Active and Suspected Problems (This Medical Record has been edited. Action required.) Lumbar foraminal stenosis (Acute) Lumbar canal stenosis (Acute) Date of Admission: 02/07/19 Date of Discharge: 02/09/19 - Primary Discharge Diagnosis Active and Suspected Problems (This Medical Record has been edited. Action required.) Lumbar foraminal stenosis (Acute) Lumbar canal stenosis (Acute) - worst at L3-4 Intractable back pain (Acute) Multilevel degenerative disc disease of the lumbar spine - Secondary Discharge Diagnosis Chronic Problems (This Medical Record has been edited. Action required.) Tobacco dependence (Chronic) Lung cancer (Chronic) stage III non-small cell lung cancer Degenerative disc disease, cervical (Chronic) Cervical spondylosis (Chronic) Cerebrovascular disease (Chronic) Mild right internal carotid artery disease Nonspecific white matter ischemic changes GERD (Chronic) Depression (Chronic) ? Arthritis (Chronic) Hospital Course and Treatment Imaging Results: 02/09/19 16:00 Spine 1 View Any Level [RAD] Routine 02/09/19 16:15 OR-Steroi/Epid Inj/Lum Sac/1st [RAD] Routine Clinical Impression(s) from Imaging Studies Lumbar Spine CT 02/07/19 18:21 IMPRESSION: Interval development of complete disc space loss and prominent endplate irregularity with erosions at L3-4. This most likely represents prominent focal disc degeneration. A smoldering chronic infectious or inflammatory discitis is less likely but possible. If clinically necessary, MRI lumbar spine with and without gadolinium would more definitively assess this finding and would be more sensitive for detection of metastases. No metastases are evident on this CT. Individualized dose optimization techniques were used for this CT. at 2058 Reported and signed by: Live Cota MD Electronically Signed: Live Cota, at 20:56 EDT Tel , Service support , Lumbar Spine MRI 02/08/19 22:41 IMPRESSION: No evidence of discitis or osteomyelitis. No metastases. Multilevel degenerative disc disease is most prominent at L3-L4 and L5-S1 as described above. Electronically Signed: Makayla Lopez, at 9:55 EDT Tel , Service support , Dr. Laure Wong - pain management Operations: None Procedures: - - Lumbar epidural on 02/09/[address] Wong Summary of Care Provided: The patient is a 63-year-old male with a past medical history of lung cancer, degenerative disc disease, cerebrovascular disease, GERD and depression who presented to the emergency department at [facility] on 02/07/2019 complaining of intractable back pain. His oncologist is Dr. Almendarez. The pain was described as 9/10. It is sharp and stabbing. He had pain radiating down the posterior right thigh and numbness in his left foot when standing for a long time. He said it was similar to when he had sciatica. A CT scan of the lumbosacral spine showed an interval development of complete disc space loss and prominent endplate irregularity with erosions at L3-4. No metastatic lesions were evident on the CT scan. CBC was unremarkable. BMP was within normal limits. The calcium was 8.5 and there was no albumin level drawn. He was a dmitted to the hospital with a diagnosis of intractable low back pain and started on Dilaudid 1 mg IV every 3 hours as needed. He was also started on diazepam 5 mg p.o. twice daily as needed muscle spasms and anxiety. An MRI of the lumbar spine was obtained with gadolinium. The MRI showed no evidence of discitis or osteomyelitis or metastatic disease. There was multilevel degenerative disc disease most prominent at L3-L4 and L5-S1. There was moderate to marked left and mild right foraminal narrowing at L3-4 with mild central canal stenosis. At L5-S1 there was disc space narrowing with no central canal stenosis but mild bilateral facet arthrosis. There was moderate to marked bilateral foraminal narrowing. The endplates at L3-4 had mild erosion. He was started on prednisone 60 mg daily on 02/08/2019. Pain was not adequately controlled with OxyIR 10 mg every 4 hours as needed and so OxyContin 10 mg every 12 hours was added and OxyIR 10 mg was continued for breakthrough pain. In the morning on 02/09/2019 he told me he slept very well the preceding night and did not wake up in pain. The sciatica in his right posterior thigh had resolved. After moving around his pain got worse but he got the OxyContin and it has improved. I was in contact with Dr. Dr. Wong who fortunately was able to schedule him for a lumbar epidural later in the afternoon. When I examined him at approximately 5 PM after his epidural he felt good and denied any back pain. He was discharged home on prescriptions previously listed and will follow up with Dr. Dr. Wong in the office for chronic pain management. - Physical Exam General: Alert, Oriented x3, Cooperative HEENT: Atraumatic, PERRLA, Normocephalic Oral: Dry Mucosa Neck: Supple, Trachea Midline Lungs: Diminished, Wheezes - mild with inspiration, no rales, - - Not tachypneic, no accessory muscle use, no conversational dyspnea. Patient tells me that he has a cough that comes and goes and used to have brownish sputum but it is currently clear. Cardiovascular: Regular rate, Regular Rhythm, Normal S1, Normal S2, No murmurs, No Gallop Abdomen: Bowel Sounds Present, Soft, Non Tender, Non-Distended Extremities: No clubbing, No cyanosis, No edema, negative straight leg raising, 5/5 strength in all extremities Skin: No rashes Neurological: Cranial nerves II-XII grossly intact, Neuro grossly intact Psych/Mental Status: Normal Affect, Appropriate This note was generated with [employer] dictation software. It may contain incorrect words, spelling, and punctuation that were not noted in checking the note before signing. Patient Problems: Active and Suspected Problems (This Medical Record has been edited. Action required.) Lumbar foraminal stenosis (Acute) Lumbar canal stenosis (Acute) - Physical Exam Vital Signs Temp Pulse Resp BP Pulse Ox 98 F 97 16 108/72 95 02/09/19 16:44 02/09/19 16:44 02/09/19 16:44 02/09/19 16:44 02/09/19 16:44 Oxygen Flow Rate (L/min) 2 Oxygen Delivery Method Room Air Weight: 150 lb 2.157 oz Body Mass Index (BMI) 20.6 Intake and Output for Last 24 Hours 02/07/19 02/08/19 02/09/19 23:59 23:59 23:59 Intake Total 240 / 240 2420 / 2420 Balance 240 / 240 2420 / 2420 Discharge Activity: May not drive while taking narcotic pain medications. Weight Bearing Status: Full weight bearing Call your doctor if you observe: Fever of 101 or Higher, Shortness of breath, Dizziness, Fainting spells, Swelling in the ankles, Chest pain, Uncontrolled pain Home Medications: Medications to take at Discharge Amitriptyline HCl [Elavil] 25 mg PO QHS 07/29/16 Albuterol Sulfate [Ventolin Hfa] 2 puff INHALATION Q6H PRN PRN 09/05/18 Diazepam 2 mg PO DAILY PRN 09/05/18 Omeprazole 20 mg PO BID 09/05/18 Ondansetron [Zofran Odt] 4 mg PO 4X/DAY PRN PRN #20 tab.rapdis 09/05/18 Prochlorperazine Maleate 10 mg PO Q6H PRN PRN 09/05/18 Sucralfate [Carafate] 1 gm PO 4X/DAY 09/05/18 Umeclidinium Brm/Vilanterol Tr [Anoro Ellipta 62.5-25 Mcg INH] 1 puff INHALATION DAILY 09/05/18 Gabapentin [Neurontin] 300 mg PO QHS 02/07/19 Meloxicam 7.5 mg PO BID #60 tab 02/09/19 Oxycodone CR [Oxycontin] 10 mg PO BID@0700,1900 3 Days #6 tab 02/09/19 Oxycodone [Oxyir] 10 mg PO Q4H PRN PRN 7 Days #50 tab 02/09/19 predniSONE tablet 60 mg PO DAILY@0800 #12 tab 02/09/19 Following Prescrptions Were Given to Patient: Oxycodone [Oxyir] 10 mg PO Q4H PRN PRN 7 Days #50 tab PRN Reason: Severe Pain (-08/11) Oxycodone CR [Oxycontin] 10 mg PO BID@0700,1900 3 Days #6 tab predniSONE tablet 60 mg PO DAILY@0800 #12 tab Meloxicam 7.5 mg PO BID #60 tab Primary Care Physician: Alexandre Mora MD [Primary Care Provider] - Please follow up with your Primary Care Physician in: as needed Please Follow Up With: Laure Wong MD When: call the office tomorrow to schedule an Appt for 1-2 weeks Disposition: Home Minutes spent on discharge:: 30 Patient Condition:: Good Medical Necessity - Tobacco Use Smoking Status: Current every day smoker Tobacco Use: Cigarettes Meaningful Use Info Meaningful Use Diagnoses (Choose all that apply): None applicable Code Visit Inpatient E&M: 89966 Disch Hosp
== END 2019-02-09 18:24 | disposition home or self-care (01) ==
LOC: ED 18:29 → MS2 22:13
PROVIDERS: Anesthesiology Pain Medicine; Admitting Provider Family Medicine; Emergency Provider Emergency Medicine; Family Provider Family Medicine; PCP Family Medicine; Visit Provider Internal Medicine
PROC: 3E0S3BZ Introduction of Anesthetic Agent into Epidural Space, Percutaneous Approach (ICD-10-PCS; CPT 62322; principal; 2019-02-09 16:25)
DX: M48.061 Spinal stenosis, lumbar region without neurogenic claudication (principal); C34.90 Malignant neoplasm of unspecified part of unspecified bronchus or lung; M50.30 Other cervical disc degeneration, unspecified cervical region; K21.9 Gastro-esophageal reflux disease without esophagitis; F17.210 Nicotine dependence, cigarettes, uncomplicated; Z79.899 Other long term (current) drug therapy
CPT/HCPCS: 62323; 64483; 72020; 72131; 72158; 80048; 80076; 85025; 85652; 86140; 94640; 96374; 96375; 96376; 97802; 99218; 99283; 99406; A9575; J7120; A4216; G0378; J2405

== ENCOUNTER 2019-02-18 18:25 | Emergency (ER) | payer OTHER, SELFPAY ==
[2019-02-18 18:26] VITALS: BP 109/71; PULSE 95; RESP 16; TEMP 36.8; O2SAT 99; BMI 23.2
[2019-02-18] MEDS: Orphenadrine 60 MG/2 ML Ampul IM (19:20)
[2019-02-18] MEDS: HYDROmorphone 1 MG/ML Syringe 2 MG IM (19:21)
[2019-02-18] MEDS: Ondansetron 4 MG/2 ML Vial IM (19:21)
--- NOTE | 2019-02-18 19:22 | ED.DCSUM_ITS ---
- ER Visit Summary Date of Service: 02/18/19 Chief Complaint: Back pain History of Present Illness: The patient is a 63 M with back pain and degenerative disks, he has a history of lung cancer is on chemotherapy does not have any opiates at home. His back pain is the same he was recently admitted due to pain not being able to be controlled, his pain returned. He has no fever or chills no radiation of the pain. Physical Examination: Patient appears in some distress, he has quite a bit of lumbar pain. Negative straight leg test, normal reflexes. Emergency Department Course and Treatment: Patient has chronic pain we will treat him with Dilaudid muscle relaxants and antiemetics. I will discharge him. Discharge stable condition Impression: [Back pain] This note was generated with [employer] dictation software. It may contain incorrect words, spelling, and punctuation that were not noted in review of the chart prior to signing ED Disposition - Plan for ED Patient: Disposition: Home or Assisted Living Instructions: ED Spasm Back No Trauma Prescriptions: Oxycodone HCl 10 mg PO Q4H PRN PRN #20 tab PRN Reason: Pain Gabapentin [Neurontin] 300 mg PO TID #90 cap Tizanidine HCl 4 mg PO TID #60 tab Referrals: Alexandre Mora MD [Primary Care Provider] - 2 Days
== END 2019-02-18 19:40 | disposition home or self-care (01) ==
PROVIDERS: Emergency Provider Emergency Medicine; Family Provider Family Medicine; PCP Family Medicine
DX: M54.9 Dorsalgia, unspecified (principal); G89.29 Other chronic pain; Z85.118 Personal history of other malignant neoplasm of bronchus and lung; Z72.0 Tobacco use
CPT/HCPCS: 96372; 99282; J2405

== ENCOUNTER 2019-03-10 15:50 | Emergency (ER) | payer OTHER, SELFPAY ==
[2019-03-10 15:51] VITALS: BP 114/90; PULSE 109; RESP 15; TEMP 36.9; O2SAT 97; BMI 30.2
[2019-03-10] MEDS: Ondansetron 4 MG/2 ML Vial IV (16:34)
[2019-03-10] MEDS: HYDROmorphone 1 MG/ML Syringe IV (16:34)
[2019-03-10 16:39] LABS: Absolute Lymphocyte Count 1.16 X10^3/ul (0.83-4.51); Absolute Neutrophil Count 3.5 X10^3/uL (2.0-7.7); Basophil# 0.01 X10^3/uL; Basophil% 0.2 % (0-1); Eosinophil# 0.05 X10^3/uL; Hematocrit 40.9 % (40-54); Hemoglobin 14.1 g/dl (13.0-16.5); Lymphocyte # 1.16 X10^3/ul (4.0); Lymphocyte % 22.9 % (19-41); Mean Corp Hgb Conc 34.5 g/gl (32-36); Mean Corpuscular Hgb 31.8 pg (27.0-32.0); Mean Corpuscular Volume 92.3 fL (80-94); Mean Platelet Vol. 9.1 fl (6.2-12.0); Monocyte# 0.34 X10^3/uL; Monocyte% 6.7 % (0-10); Platelet Count 192 K/mm3 (150-450); RBC Distribution Width CV 13.8 % (11.6-14.6); RBC Distribution Width SD 46.5 fl (35.1-43.9); Red Blood Count 4.43 M/mm3 (4.6-6.2); White Blood Count 5.1 K/mm3 (4.4-11.0)
[2019-03-10 16:40] LABS: POSITIVE COUNT NO; POSITIVE DIFFERENTIAL NO; POSITIVE MORPHOLOGY NO
--- NOTE | 2019-03-10 18:07 | ED.DCSUM_ITS ---
- ER Visit Summary Date of Service: 03/10/19 Chief Complaint: [Back pain] History of Present Illness: The patient is a 63 M [presents the emergency department complaint of back pain that started around 11 or 12 PM today. Patient also complains of pain rating down his right leg. Patient states pain is unbearable. Patient's had some chronic back pain issues and is currently being treated for stage III lung cancer. Patient was recently admitted over [facility] to the hospital for intractable back pain and had an MRI at that time. Patient also was started with pain management and had an epidural block at that time that he states lasted about 10 days and the pain started coming back. Patient saw Dr. Pratt 2 days ago and had another injection in the right side of his back but really has not had much relief. Patient denies any loss of bowel or bladder function. He denies weakness the extremities. Denies any fevers. He denies urinary symptoms. Patient states that he ran out of his Percocet. Patient states that he was having so much pain that he would take 3 a day instead of 2 a day.] Physical Examination: [HEENT-PERRLA, EOMI. Cranial nerves II through XII grossly intact. TMs clear. Mucous membranes moist. No adenopathy. Cardiovascular-regular rate and rhythm without murmur or ectopy Lungs-clear to auscultation, chest wall stable without crepitus or subcu emphysema Abdomen-normoactive bowel sounds, soft, nontender, no rebound or rigidity, no peritoneal signs. Back exam-patient has some tenderness over the right lumbar paraspinal musculature. Patient has negative straight leg raises. Deep tendon reflexes are plus 1 out of 4 bilaterally at the patella and Achilles. Patient has normal 5 extension. Patient has normal sensation light touch. Extremities-intact ?4, normal range of motion, normal pulses, atraumatic] Test Results: [CBC with differential was unremarkable.] Emergency Department Course and Treatment: [Patient was been given Dilaudid and Zofran.] Initially I did discuss case with Dr. Carrasquillo and he really did not feel concerned about possible complication due to the regional nerve block he performed. There is no erythema or warmth to the patient's back or fever. Patient has no tenderness over the midline of the lumbar spine. Patient apparently did receive a prescription for Percocet on 28 February was supposed to last him for 2 weeks. Patient states that he was having too much pain. I will give him a prescription for few Percocet until he can see Dr. Pratt in 5 days. I did perform an oars report on the patient and it does appear that he has had chronic prescriptions for pain medications from his oncologist. Treatment Plan: [Patient will be given a prescription for Percocet patient advised to follow-up with pain management in 5 days.] Disposition: [Discharged home in stable condition. Patient advised to return if worsening pain, fever, weakness in extremity, or condition should worsen anyway.] Impression: [Acute exacerbation of chronic back pain. ] This note was generated with [employer] dictation software. It may contain incorrect words, spelling, and punctuation that were not noted in review of the chart prior to signing ED Disposition - Plan for ED Patient: Referrals: Alexandre Mora MD [Primary Care Provider] -
--- NOTE | 2019-03-10 18:08 | ED.DEP ---
ED Disposition - Plan for ED Patient: Instructions: ED Neck Back Pain General Prescriptions: Oxycodone HCl/Acetaminophen [Percocet 5/325] 1 tab PO Q6H PRN PRN 5 Days #20 tab PRN Reason: Pain Referrals: Alexandre Mora MD [Primary Care Provider] - Laure Wong MD [STAFF PHYSICIAN] - 03/15/19
[2019-03-10 18:24] VITALS: BP 116/72; PULSE 59; RESP 16; O2SAT 97
== END 2019-03-10 18:26 | disposition home or self-care (01) ==
LOC: ED 16:39
PROVIDERS: Emergency Provider Emergency Medicine; Family Provider Family Medicine; PCP Family Medicine
DX: M54.9 Dorsalgia, unspecified (principal); G89.29 Other chronic pain; K21.9 Gastro-esophageal reflux disease without esophagitis; Z72.0 Tobacco use; C34.90 Malignant neoplasm of unspecified part of unspecified bronchus or lung
CPT/HCPCS: 36591; 85025; 96374; 96375; 99282; A4216; J2405

== ENCOUNTER 2019-03-30 17:37 | Emergency (ER) | payer OTHER, SELFPAY ==
[2019-03-30] VITALS (12 sets, daily range): BP systolic 111–133; BP diastolic 67–91; PULSE 79–93; RESP 16–21; TEMP 36.6; O2SAT 93–99; BMI 20.9
[2019-03-30 17:56] LABS: Bedside Glucose 96 mg/dL (70-110)
--- NOTE | 2019-03-30 17:58 | CT_ITS ---
STUDY: CT BRAIN WITH AND WITHOUT CONTRAST REASON FOR EXAM: Male, 63 years old. And left-sided weakness. History of stage III lung cancer. RADIATION DOSAGE (If Supplied By Facility): CTDIvol = ( 44.99 ) mGy, DLP = ( 1580.97 ) mGycm TECHNIQUE: Transaxial CT imaging of the brain was performed pre and post contrast administration. The examination was performed with intravenous administration of 50 IV Isovue 370. Individualized dose optimization techniques were used for this CT. COMPARISON: None. FINDINGS: Normal soft tissue structures. Normal calvarium. Within the right frontal lobe there is a partially calcified enhancing 2.0 x 2.3 x 2.2 cm mass with adjacent edema. There is no midline shift. There is an additional 1.0 cm high attenuation focus within the right frontal lobe visualized as well. There is a 0.8 cm high attenuation rounded focus within the parietal lobe near the vertex. There is a partially calcified 0.9 cm lesion within the right cerebellar hemisphere as well. Normal size ventricles and extra-axial spaces for the patient's age. There are areas of decreased attenuation within the white matter tracts of the supratentorial brain, consistent with microvascular disease changes. Normal basal ganglia and thalami. Normal brainstem. Normal cerebellum. There is no intracranial hemorrhage. There are no findings of an acute ischemic infarction. There is a rounded opacity within the visualized right maxillary sinus consistent with a mucous retention cyst or polyp. CT/Brain/Head W/WO Contrast IMPRESSION: 2.0 x 2.3 x 2.3 cm mass within the right frontal lobe associated with adjacent edema consistent with an underlying metastasis. There are additional metastases within the right frontal and left parietal lobes as well as within the right cerebellar hemisphere. Small vessel ischemia. Electronically Signed: Tiny Travis MD at 19:31 EDT Tel , Service support ,
--- NOTE | 2019-03-30 17:58 | EKG12_ITS ---
Test Reason : NEURO Blood Pressure : / mmHG Vent. Rate : 079 BPM Atrial Rate : 079 BPM P-R Int : 182 ms QRS Dur : 084 ms QT Int : 380 ms P-R-T Axes : 079 062 071 degrees QTc Int : 435 ms Normal sinus rhythm Normal ECG Confirmed by JERI HENDRIX, SANDER ([id number]), acquisition editor TYLER POZO ([id number] on 04/04/2019 1:01:45 PM Referred By: Carlos Puentes Confirmed By:SANDER WILCOX MD
--- NOTE | 2019-03-30 18:10 | RAD_ITS ---
STUDY: X-RAY CHEST REASON FOR EXAM: Male, 63 years old. Neural symptoms. TECHNIQUE: 2 frontal images of the chest were obtained. COMPARISON: February 25, 2016 FINDINGS: There is a vague opacity within the right lower lung. The lungs are hyperinflated. There is a left-sided central venous catheter in place terminating within the superior vena cava. Normal size heart. Normal mediastinum and yogi. Normal visualized pulmonary arteries. Normal visualized aortic arch and descending thoracic aorta. Normal visualized thoracic spine. Normal visualized ribs, clavicles, and shoulders. There is no demonstrated abnormality of the visualized soft tissue structures of the upper abdomen. RAD/Chest 1 View IMPRESSION: Vague opacity within the right lower lung, may be secondary to underlying atelectasis and/or pneumonia, cannot exclude a neoplastic process. Hyperinflated lungs suggestive of underlying COPD. Electronically Signed: Tiny Travis MD at 18:39 EDT Tel , Service support ,
[2019-03-30 18:22] LABS: Absolute Lymphocyte Count 1.13 X10^3/ul (0.83-4.51); Absolute Neutrophil Count 3.4 X10^3/uL (2.0-7.7); Basophil# 0.02 X10^3/uL; Basophil% 0.4 % (0-1); Eosinophil# 0.07 X10^3/uL; Eosinophils% 1.4 % (0-5); Hematocrit 37.2 % (40-54); Hemoglobin 12.6 g/dl (13.0-16.5); Lymphocyte # 1.13 X10^3/ul (4.0); Lymphocyte % 22.9 % (19-41); Mean Corp Hgb Conc 33.9 g/gl (32-36); Mean Corpuscular Hgb 31.8 pg (27.0-32.0); Mean Corpuscular Volume 93.9 fL (80-94); Mean Platelet Vol. 8.5 fl (6.2-12.0); Monocyte# 0.34 X10^3/uL; Monocyte% 6.9 % (0-10); Neutrophil # 3.36 X10^3/uL (2.7-7.7); POSITIVE COUNT NO; POSITIVE DIFFERENTIAL NO; POSITIVE MORPHOLOGY NO; Platelet Count 178 K/mm3 (150-450); RBC Distribution Width CV 13.9 % (11.6-14.6); RBC Distribution Width SD 47.9 fl (35.1-43.9); Red Blood Count 3.96 M/mm3 (4.6-6.2); White Blood Count 4.9 K/mm3 (4.4-11.0)
[2019-03-30] MEDS: LORazepam 2 MG/ML Syringe 0.5 MG IV (18:23)
[2019-03-30 18:37] LABS: Partial Thromboplast Time 51.9 Seconds (24.1-36.2); Prothrombin Time (Protime)PT. 12.6 SECONDS (11.7-14.9)
[2019-03-30 18:41] LABS: Anion Gap 7 (5-15); BUN 8 mg/dL (7-18); BUN/Creat Ratio 12.9 RATIO (10-20); Calcium,Total 8.5 mg/dL (8.5-10.1); Chloride 103 mmol/L (98-107); Creatinine, Serum 0.62 mg/dL (0.70-1.30); EST Glomerular Filtration Rate 139 mL/min (>60); Est Glom Filt Rate - Afr Amer 169 mL/min (>60); Estimated Creatinine Clearance 120.97 ml/min; Glucose 86 mg/dL (74-106); Potassium 3.5 mmol/L (3.5-5.1); Sodium Level 136 mmol/L (136-145)
--- NOTE | 2019-03-30 19:02 | ED.RN ---
Patient just returned from CT scan and was able to do first NIH score
[2019-03-30] MEDS: Ondansetron 4 MG/2 ML Vial IV (19:10)
[2019-03-30] MEDS: Morphine 4 MG/ML Syringe IV (19:10)
--- NOTE | 2019-03-30 19:41 | ED.VIS.STROK ---
History of Present Illness Chief Complaint: Neuro S/Sx Informant: Patient, Family Onset: Weeks Context: Sudden Onset Timing: Continuous Quality and Location: Left Facial Droop, Left Arm Parasthesia, Left Leg Parasthesia, Left Arm Weakness, Left Leg Weakness, Slurred Speech Current Severity: Moderate Maximum Severity: Moderate Worsened by: CVA versus metastasis Relieved by: Nothing Associated Symptoms: Negative for: Headache, Nausea, Vomiting, Chest Pain Narrative: Is a 63-year-old male who has stage III lung cancer. His oncologist is Dr. Ashley Hurt. He presents with worsening neurologic symptoms that started approximate 1 week ago. Prior similar symptoms: No Recent Illness/Hospitalization: Yes - Past Medical History (1) Lumbar canal stenosis Status: Acute (2) Cerebrovascular disease Status: Chronic Comment: Mild right internal carotid artery disease Nonspecific white matter ischemic changes (3) Depression Status: Chronic (4) GERD Status: Chronic (5) Lung cancer Status: Chronic Past Medical History - Allergies and Home Meds Allergies/Adverse Reactions: Allergies Penicillins Allergy (Intermediate, Verified 03/30/19 17:40) Hives (IV DYE) Iodinated Contrast- Oral and IV Dye [CONTRASTS] Allergy (Verified 03/30/19 17:40) Hives WELBUTRIN Adverse Reaction (Intermediate, Uncoded 03/30/19 17:40) TACHYCARDIA Primary Care Physician: Alexandre Mora MD [Primary Care Provider] - Prior records reviewed: Yes Lives: Spouse/ Significant Other Smoking Status: Current every day smoker Alcohol: None - Family History Maternal Family History: Reports: No pertinent history Review of Systems General: Denies: Chills, Fever, Sweats Eyes: Denies: Visual changes - bilaterally, Blurred Vision - bilaterally, Diplopia ENT: Denies: Bilateral ear pain, Rhinorrhea, Sore throat Cardiovascular: Denies: Chest pain, Palpitations Respiratory: Denies: Dyspnea, Cough, Dyspnea on exertion Gastrointestinal: Denies: Abdominal pain, Nausea, Vomiting, Diarrhea, Melena, Hematochezia Genitourinary: Denies: Dysuria, Hematuria, Frequency Musculoskeletal: Denies: Myalgias, Arthralgias, Neck pain, Back pain, Swelling, Extremity Pain Skin: Denies: Rash, Wounds Neurological: Reports: Weakness, Parasthesia, Numbness Psych: Reports: Depression Endocrine: Denies: Polyuria, Polydipsia Hematologic: Denies: Easy bruising, Easy bleeding Physical Exam Vital Signs/Narrative: Vital Signs Temp Pulse Resp BP Pulse Ox 03/30/19 18:53 93 19 H 123/73 H 99 03/30/19 17:38 98 F 89 16 128/73 H 98 - NIH Stroke Scale 1a Level of Consciousness: 1 1b LOC Questions (Score 2 if aphasic/stupor): 1 1c LOC Commands (Only score 1st attempt): 0 2 Best Gaze (If aphasic, use reflexive mvmts.): 0 3 Visual: 0 4 Facial Palsy: 1 5 Motor Arm Right (UN = amputation/fusion): 0 5 Motor Arm Left: 1 6 Motor Leg Right: 0 6 Motor Leg Left: 2 7 Limb ataxia (Only + if out of proportion): 0 8 Sensory (Aphasia/stupor=0 or 1, coma=2): 1 9 Best Language: 0 10 Dysarthria (mute, coma=2, intubated=UN): 1 11 Extinction and Inattention (only scored if +): 0 Total Score: 8 General: Well nourished, Well developed Head: Normocephalic, Atraumatic Eyes: Perrl, EOMI. Negative for: Pale conjunctiva, Scleral icterus, - ENT: Moist mucous membranes, No rhinorrhea, TM's clear Neck: Supple, Nontender, No lymphadenopathy, No JVD, - Cardiovascular: Regular rate, Regular rhythm, No murmurs, Normal S1, Normal S2 Respiratory: No distress, CTA bilaterally, Chest nontender Abdomen: Soft, Nontender, Nondistended, Normal bowel sounds Back: Nontender, Normal Inspection Extremities: Nontender, No edema Skin: Normal color, No rash. Negative for: Cyanosis, Jaundice Neurological: Disoriented. Negative for: Alert, Oriented x3, Cranial nerves II-XII grossly intact, Normal Strength, Normal Sensation, Normal DTR - Babinski sign on the right, Normal Gait Psychological: Depressed Diagnostic/Tx/Re-eval Impressions Brain CT 03/30/19 17:58 IMPRESSION: 2.0 x 2.3 x 2.3 cm mass within the right frontal lobe associated with adjacent edema consistent with an underlying metastasis. There are additional metastases within the right frontal and left parietal lobes as well as within the right cerebellar hemisphere. Small vessel ischemia. Electronically Signed: Tiny Travis MD at 19:31 EDT Tel , Service support , Chest X-Ray 03/30/19 18:10 IMPRESSION: Vague opacity within the right lower lung, may be secondary to underlying atelectasis and/or pneumonia, cannot exclude a neoplastic process. Hyperinflated lungs suggestive of underlying COPD. Electronically Signed: Tiny Travis MD at 18:39 EDT Tel , Service support , 03/30/19 17:58 Brain/Head W/WO Contrast [CT] Stat 03/30/19 18:10 Chest 1 View [RAD] Stat Laboratory Results 03/30/19 03/30/19 03/30/19 17:50 18:10 18:10 WBC 4.9 RBC 3.96 L Hgb 12.6 L Hct 37.2 L MCV 93.9 MCH 31.8 MCHC 33.9 RDW 13.9 RDW Differential 47.9 H Plt Count 178 MPV 8.5 Immature Gran % (Auto) 0.400 Neut % (Auto) 68.0 Lymph % (Auto) 22.9 [place] % (Auto) 6.9 Eos % (Auto) 1.4 Baso % (Auto) 0.4 Absolute Neuts (auto) 3.4 Absolute Lymphs (auto) 1.13 Total Counted Not Reportable PT 12.6 INR 1.0 APTT 51.9 H Sodium Potassium Chloride Carbon Dioxide Anion Gap BUN Creatinine Estim Creat Clear Calc Est GFR (MDRD) Af Amer Est GFR (MDRD) Non-Af BUN/Creatinine Ratio Glucose Calcium Troponin I POC Glucose 96 03/30/19 18:10 WBC RBC Hgb Hct MCV MCH MCHC RDW RDW Differential Plt Count MPV Immature Gran % (Auto) Neut % (Auto) Lymph % (Auto) [place] % (Auto) Eos % (Auto) Baso % (Auto) Absolute Neuts (auto) Absolute Lymphs (auto) Total Counted PT INR APTT Sodium 136 Potassium 3.5 Chloride 103 Carbon Dioxide 26.0 Anion Gap 7 BUN 8 Creatinine 0.62 L Estim Creat Clear Calc 120.97 Est GFR (MDRD) Af Amer 169 Est GFR (MDRD) Non-Af 139 BUN/Creatinine Ratio 12.9 Glucose 86 Calcium 8.5 Troponin I < 0.015 POC Glucose - Rhythm Strip Rhythm Strip: Sinus Rhythm Rate: 85 Ectopy: None, PAC(s) - EKG Initial EKG Interpretation: Sinus Rhythm - Ventricular rate 70. There are premature atrial beats. There is evidence of left bundle branch block. ID interval is normal. - Medical Decision Making Stroke Team Activated: No IV TPA Administered: No She presents with no symptoms. This represents a either metastasis to the brain or stroke. CT was obtained. CT reveals abnormality concern for mets. IV contrast was obtained with multiple mets noted and vasogenic edema. Patient will was treated with Decadron. Case was discussed with his oncologist who recommended admission to the hospital with MRI in the morning and radiation therapy. ED Disposition - Plan for ED Patient: Disposition: Acute Care Hospital [facility] Diagnosis: Lung cancer metastatic to brain Referrals: Alexandre Mora MD [Primary Care Provider] -
--- NOTE | 2019-03-30 19:45 | ED.DCSUM_ITS ---
History of Present Illness Chief Complaint: Neuro S/Sx Informant: Patient, Family Onset: Weeks Context: Sudden Onset Timing: Continuous Quality and Location: Left Facial Droop, Left Arm Parasthesia, Left Leg Parasthesia, Left Arm Weakness, Left Leg Weakness, Slurred Speech Current Severity: Moderate Maximum Severity: Moderate Worsened by: CVA versus metastasis Relieved by: Nothing Associated Symptoms: Negative for: Headache, Nausea, Vomiting, Chest Pain Narrative: Is a 63-year-old male who has stage III lung cancer. His oncologist is Dr. Ashley Hurt. He presents with worsening neurologic symptoms that started approximate 1 week ago. Prior similar symptoms: No Recent Illness/Hospitalization: Yes - Past Medical History (1) Lumbar canal stenosis Status: Acute (2) Cerebrovascular disease Status: Chronic Comment: Mild right internal carotid artery disease Nonspecific white matter ischemic changes (3) Depression Status: Chronic (4) GERD Status: Chronic (5) Lung cancer Status: Chronic Past Medical History - Allergies and Home Meds Allergies/Adverse Reactions: Allergies Penicillins Allergy (Intermediate, Verified 03/30/19 17:40) Hives (IV DYE) Iodinated Contrast- Oral and IV Dye [CONTRASTS] Allergy (Verified 03/30/19 17:40) Hives WELBUTRIN Adverse Reaction (Intermediate, Uncoded 03/30/19 17:40) TACHYCARDIA Primary Care Physician: Alexandre Mora MD [Primary Care Provider] - Prior records reviewed: Yes Lives: Spouse/ Significant Other Smoking Status: Current every day smoker Alcohol: None - Family History Maternal Family History: Reports: No pertinent history Review of Systems General: Denies: Chills, Fever, Sweats Eyes: Denies: Visual changes - bilaterally, Blurred Vision - bilaterally, Diplopia ENT: Denies: Bilateral ear pain, Rhinorrhea, Sore throat Cardiovascular: Denies: Chest pain, Palpitations Respiratory: Denies: Dyspnea, Cough, Dyspnea on exertion Gastrointestinal: Denies: Abdominal pain, Nausea, Vomiting, Diarrhea, Melena, Hematochezia Genitourinary: Denies: Dysuria, Hematuria, Frequency Musculoskeletal: Denies: Myalgias, Arthralgias, Neck pain, Back pain, Swelling, Extremity Pain Skin: Denies: Rash, Wounds Neurological: Reports: Weakness, Parasthesia, Numbness Psych: Reports: Depression Endocrine: Denies: Polyuria, Polydipsia Hematologic: Denies: Easy bruising, Easy bleeding Physical Exam Vital Signs/Narrative: Vital Signs Temp Pulse Resp BP Pulse Ox 03/30/19 18:53 93 19 H 123/73 H 99 03/30/19 17:38 98 F 89 16 128/73 H 98 - NIH Stroke Scale 1a Level of Consciousness: 1 1b LOC Questions (Score 2 if aphasic/stupor): 1 1c LOC Commands (Only score 1st attempt): 0 2 Best Gaze (If aphasic, use reflexive mvmts.): 0 3 Visual: 0 4 Facial Palsy: 1 5 Motor Arm Right (UN = amputation/fusion): 0 5 Motor Arm Left: 1 6 Motor Leg Right: 0 6 Motor Leg Left: 2 7 Limb ataxia (Only + if out of proportion): 0 8 Sensory (Aphasia/stupor=0 or 1, coma=2): 1 9 Best Language: 0 10 Dysarthria (mute, coma=2, intubated=UN): 1 11 Extinction and Inattention (only scored if +): 0 Total Score: 8 General: Well nourished, Well developed Head: Normocephalic, Atraumatic Eyes: Perrl, EOMI. Negative for: Pale conjunctiva, Scleral icterus, - ENT: Moist mucous membranes, No rhinorrhea, TM's clear Neck: Supple, Nontender, No lymphadenopathy, No JVD, - Cardiovascular: Regular rate, Regular rhythm, No murmurs, Normal S1, Normal S2 Respiratory: No distress, CTA bilaterally, Chest nontender Abdomen: Soft, Nontender, Nondistended, Normal bowel sounds Back: Nontender, Normal Inspection Extremities: Nontender, No edema Skin: Normal color, No rash. Negative for: Cyanosis, Jaundice Neurological: Disoriented. Negative for: Alert, Oriented x3, Cranial nerves II- XII grossly intact, Normal Strength, Normal Sensation, Normal DTR - Babinski sign on the right, Normal Gait Psychological: Depressed Diagnostic/Tx/Re-eval Impressions Brain CT 03/30/19 17:58 IMPRESSION: 2.0 x 2.3 x 2.3 cm mass within the right frontal lobe associated with adjacent edema consistent with an underlying metastasis. There are additional metastases within the right frontal and left parietal lobes as well as within the right cerebellar hemisphere. Small vessel ischemia. Electronically Signed: Tiny Travis MD at 19:31 EDT Tel , Service support , Chest X-Ray 03/30/19 18:10 IMPRESSION: Vague opacity within the right lower lung, may be secondary to underlying atelectasis and/or pneumonia, cannot exclude a neoplastic process. Hyperinflated lungs suggestive of underlying COPD. Electronically Signed: Tiny Travis MD at 18:39 EDT Tel , Service support , 03/30/19 17:58 Brain/Head W/WO Contrast [CT] Stat 03/30/19 18:10 Chest 1 View [RAD] Stat Laboratory Results 03/30/19 03/30/19 03/30/19 17:50 18:10 18:10 WBC 4.9 RBC 3.96 L Hgb 12.6 L Hct 37.2 L MCV 93.9 MCH 31.8 MCHC 33.9 RDW 13.9 RDW Differential 47.9 H Plt Count 178 MPV 8.5 Immature Gran % (Auto) 0.400 Neut % (Auto) 68.0 Lymph % (Auto) 22.9 [place] % (Auto) 6.9 Eos % (Auto) 1.4 Baso % (Auto) 0.4 Absolute Neuts (auto) 3.4 Absolute Lymphs (auto) 1.13 Total Counted Not Reportable PT 12.6 INR 1.0 APTT 51.9 H Sodium Potassium Chloride Carbon Dioxide Anion Gap BUN Creatinine Estim Creat Clear Calc Est GFR (MDRD) Af Amer Est GFR (MDRD) Non-Af BUN/Creatinine Ratio Glucose Calcium Troponin I POC Glucose 96 03/30/19 18:10 WBC RBC Hgb Hct MCV MCH MCHC RDW RDW Differential Plt Count MPV Immature Gran % (Auto) Neut % (Auto) Lymph % (Auto) [place] % (Auto) Eos % (Auto) Baso % (Auto) Absolute Neuts (auto) Absolute Lymphs (auto) Total Counted PT INR APTT Sodium 136 Potassium 3.5 Chloride 103 Carbon Dioxide 26.0 Anion Gap 7 BUN 8 Creatinine 0.62 L Estim Creat Clear Calc 120.97 Est GFR (MDRD) Af Amer 169 Est GFR (MDRD) Non-Af 139 BUN/Creatinine Ratio 12.9 Glucose 86 Calcium 8.5 Troponin I < 0.015 POC Glucose - Rhythm Strip Rhythm Strip: Sinus Rhythm Rate: 85 Ectopy: None, PAC(s) - EKG Initial EKG Interpretation: Sinus Rhythm - Ventricular rate 70. There are premature atrial beats. There is evidence of left bundle branch block. [place] interval is normal. - Medical Decision Making Stroke Team Activated: No IV TPA Administered: No She presents with no symptoms. This represents a either metastasis to the brain or stroke. CT was obtained. CT reveals abnormality concern for mets. IV contrast was obtained with multiple mets noted and vasogenic edema. Patient will was treated with Decadron. Case was discussed with his oncologist who r ecommended admission to the hospital with MRI in the morning and radiation therapy. ED Disposition - Plan for ED Patient: [facility] Diagnosis: Lung cancer metastatic to brain Referrals: Alexandre Mora MD [Primary Care Provider] -
[2019-03-30] MEDS: dexAMETHasone 10 MG/ML Vial IV (20:02)
--- NOTE | 2019-03-30 21:07 | MRI_ITS ---
We are attempting to reach an attending provider to discuss findings. An addendum with communication details will be sent when the communication is complete. STUDY: MRI BRAIN WITH AND WITHOUT CONTRAST REASON FOR EXAM: Male, 63 years old. Numbness and tingling in the left leg. Lung cancer. TECHNIQUE: Standardized multiplanar fat and water weighted pulse sequences were obtained. 14 IV Dotarem was administered for the contrast portion of the examination. COMPARISON: CT March 30, 2019. MRI November 03, 2015 FINDINGS: Normal size of the ventricles and extra-axial spaces for the patient's age. There are a limited number of small white matter hyperintensities, distributed throughout the deep white matter tracts of the cerebral hemispheres, consistent with mild chronic white matter ischemic changes. There is 2.4 x 2.1 cm right parietal mass with surrounding edema, series 10 and 21/26. There are 2 regions of T1 and T2 signal hyperintensity without enhancement consistent with calcifications in the right and left parietal lobes. There is 2.7 x 2.1 cm enhancing mass of the left upper cerebellum. There is adjacent edema. There are 1.8 x 1.4 and 1.7 x 1.5 cm masses of the right cerebellum. There is cerebellar tonsillar ectopia of 0.3 cm. There is no evidence for recent intracranial ischemia or other cause of cytotoxic edema on diffusion weighted imaging (DWI). There are prominent perivascular spaces (PVS) involving the basal ganglia. Normal thalami. There is no extra-axial fluid accumulation. Normal flow voids within the major intracranial circulation suggesting patency by spin echo criteria. Normal venous enhancement. There is no enhancing intra-axial or extra-axial abnormality. Normal sella turcica, pituitary gland, infundibular stalk, optic chiasm and hypothalamus. Normal tectal plate and pineal gland. Normal midbrain, doe and medulla. Normal basal cisterns. Normal bilateral temporal bones. Normal bilateral internal auditory canals. No demonstrated orbital abnormality, within the constraints of a routine brain study. Normal visualized paranasal sinuses. Normal calvarium and skull base. Normal visualized soft tissue structures. Normal visualized upper cervical spine. MRI/Brain W/WO Contrast IMPRESSION: Right parietal and bilateral cerebellar masses with edema consistent with neoplastic malignancy. Electronically Signed: Esequiel Ring MD at 23:08 EDT , Service support ,
[2019-03-30] MEDS: HYDROmorphone 1 MG/ML Syringe IV ×2 (21:27→23:48)
[2019-03-31] VITALS: BP 134/72; PULSE 81; RESP 19; O2SAT 92
[2019-03-31 00:30] VITALS: BP 111/71; PULSE 80; RESP 13; O2SAT 95
== END 2019-03-31 01:50 | disposition short-term general hospital (02) ==
LOC: ED 19:49 → PCU 20:19
PROVIDERS: Emergency Provider Emergency Medicine; Family Provider Family Medicine; PCP Family Medicine; Referring Provider Internal Medicine
DX: C34.90 Malignant neoplasm of unspecified part of unspecified bronchus or lung (principal); C79.31 Secondary malignant neoplasm of brain; I44.7 Left bundle-branch block, unspecified; F32.9 Major depressive disorder, single episode, unspecified; K21.9 Gastro-esophageal reflux disease without esophagitis; Z86.73 Personal history of transient ischemic attack (TIA), and cerebral infarction without residual deficits
CPT/HCPCS: 36591; 70470; 70553; 71045; 80048; 82962; 84484; 85025; 85610; 85730; 93005; 96374; 96375; 96376; 99284; A9575; J7030; J7040; Q9967; A4216; J2405

== ENCOUNTER 2019-06-04 16:00 | Emergency (ER) | payer OTHER, SELFPAY ==
[2019-03-30 17:38] VITALS: BMI 20.9
[2019-06-04 16:01] VITALS: BP 98/40; PULSE 115; RESP 16; TEMP 36.7; O2SAT 92; BMI 23.7
--- NOTE | 2019-06-04 16:57 | RAD_ITS ---
STUDY: X-RAY CHEST REASON FOR EXAM: Male, 63 years old. Nausea and vomiting x2 days TECHNIQUE: Single AP portable view of the chest. COMPARISON: Prior study of 03/30/2019 FINDINGS: There is a left-sided Mediport with catheter tip projecting over the atriocaval junction. There is hyperinflation of the lungs consistent with chronic obstructive lung disease (COPD). There is no demonstrated pleural abnormality. Normal size heart. Normal mediastinum and yogi. Normal visualized pulmonary arteries. There are calcified plaques of the aortic arch. Normal visualized thoracic spine. Normal visualized ribs, clavicles, and shoulders. There is no demonstrated abnormality of the visualized soft tissue structures of the upper abdomen. RAD/Chest 1 View (Portable) IMPRESSION: Findings consistent with COPD. No acute cardiopulmonary disease process is noted. Calcified plaques of the aortic arch. Left-sided Mediport with catheter tip projecting over the atriocaval junction. Electronically Signed: Live Campos MD at 17:16 EDT , Service support ,
--- NOTE | 2019-06-04 16:57 | EKG12_ITS ---
Test Reason : Blood Pressure : / mmHG Vent. Rate : 106 BPM Atrial Rate : 106 BPM P-R Int : 178 ms QRS Dur : 082 ms QT Int : 336 ms P-R-T Axes : 075 041 071 degrees QTc Int : 446 ms Sinus tachycardia with frequent Premature ventricular complexes Low Voltage QRS (Limb Leads) Confirmed by JERI HENDRIX, SANDER ([id number]), photograph editor EMA COLON ([id number]) on 06/08/2019 10:29:52 AM Referred By: TROY Confirmed By:SANDER WILCOX MD
--- NOTE | 2019-06-04 16:57 | CT_ITS ---
STUDY: CT BRAIN WITHOUT CONTRAST REASON FOR EXAM: Male, 63 years old. Headache nausea and vomiting x2 days RADIATION DOSAGE (If Supplied By Facility): CTDIvol = ( 44.99 ) mGy, DLP = ( 829.85 ) mGycm TECHNIQUE: Transaxial CT imaging of the brain was performed without administration of intravenous contrast material. Individualized dose optimization techniques were used for this CT. COMPARISON: Prior study of 03/30/2019 FINDINGS: Normal soft tissue structures. There are status post craniotomy changes of the right parietal bone near the skull vertex. There are hyperdense faintly calcified nodules of the left and right parietal lobes measuring 3 mm and 6 mm in diameter respectively. These are both decreased in size from the previous study. A previously noted partially calcified enhancing mass of the right frontoparietal region noted on the previous study is not seen at this time. Residual white matter hypodensity is present in this area. There is no evidence of mass effect with midline shift. The lateral ventricles are normal in size and are symmetric. The third and fourth ventricles are midline. There are areas of decreased attenuation within the white matter tracts of the supratentorial brain, consistent with microvascular disease changes. Normal basal ganglia and thalami. Normal brainstem. There is a 7 mm dense calcification of the medial right cerebellum, appearing increased in size from the prior study. There is no intracranial hemorrhage. There are no findings of an acute ischemic infarction. There is a subcentimeter polypoid defect of the right maxillary sinus. CT/Brain/Head without Contrast IMPRESSION: 1. Status post right parietal craniotomy. 2. Hyperdense faintly calcified nodules of the left and right parietal lobes measuring 3 and 6 mm in diameter respectively, both decreased in size from the previous study. 3. A previously noted partially calcified enhancing mass of the right frontoparietal area is not seen at this time. Residual white matter hypodensity is present in this area. 4. Chronic involutional changes. 5. 7 mm dense calcification of the medial right cerebellar hemisphere appearing increased in size from the previous study. 6. There is no intracranial hemorrhage or evidence of acute infarct. Electronically Signed: Live Campos MD at 18:43 EDT , Service support ,
--- NOTE | 2019-06-04 16:58 | ED.DCSUM_ITS ---
- ER Visit Summary Date of Service: 06/04/19 Chief Complaint: Nausea, vomiting History of Present Illness: The patient is a 63 M presenting with nausea, vomiting x3 days. Patient has a history of lung cancer and is currently on chemotherapy, status post radiation. He had gamma knife procedure one month ago for brain mets. He is in palliative care for pain control and nausea control. He has oxycodone, methadone, Zofran, and Compazine at home. He states this is not controlling his symptoms. He has mild diffuse abdominal pain. He complains of headache since the surgery. Denies fever. Physical Examination: Vitals are stable. Patient is afebrile. Alert no acute distress. HEENT exam dry mucous membranes Neck is supple. No meningismus Lungs are mild expiratory wheezing bilaterally. Heart is regular and tachycardic Abdomen is soft mild epigastric tenderness with no guarding or rebound Extremities are unremarkable. Skin is warm and dry. No focal neurologic deficit. Remainder of exam is unremarkable. Emergency Department Course and Treatment: Patient was given albuterol aerosol. He was given IV fluids, Phenergan. EKG is sinus rate of 106 with PVC. CBC, chemistries unremarkable other than glucose 67. Lipase is 44. Troponin is negative. Lactic acid is normal. Chest x-ray shows COPD. CT head shows status post right parietal craniotomy. Hyperdense faintly calcified nodules of the left and right parietal lobes measuring 3 and 6 mm in diameter respectively, both decreased in size from the previous study. A previously noted partially calcified enhancing mass of the right frontoparietal area is not seen at this time. Residual white matter hypodensity is present in this area. Chronic involutional changes. 7 mm dense calcification of the medial right cerebellar hemisphere appearing increased in size from the previous study. There is no intracranial hemorrhage or evidence of acute infarct. On reevaluation, patient is feeling much improved. He is able to tolerate p.o. in the emergency department. He is requesting discharge home. Discussed with Dr. Bailey covering for Dr. Hurt. Patient is advised to follow-up in their office on Thursday. Advised return to ED for worsening comp laints. Disposition: Discharge home Impression: Nausea, Vomiting This note was generated with [employer] software. It may contain incorrect words, spelling, and punctuation that were not noted in review of the chart prior to signing ED Disposition - Plan for ED Patient: Instructions: VOMITING AND DIARRHEA, Nonspecific (Adult) Prescriptions: proMETHazine tablet [Phenergan] 25 mg PO Q6H PRN PRN #10 tab PRN Reason: Nausea Prescription Printed Referrals: Alexandre Mora MD [Primary Care Provider] - Maira Hurt MD [STAFF PHYSICIAN] -
[2019-06-04 17:20] VITALS: PULSE 106; RESP 14
[2019-06-04] MEDS: Albuterol 2.5 MG/3 ML VIAL.NEB. INHALATION (17:50)
[2019-06-04] MEDS: 0.9% Normal Saline 1,000 ML 1000 ML IV (17:50)
[2019-06-04] MEDS: proMETHazine 25 MG/ML Syringe 6.25 MG IV (17:50)
[2019-06-04 17:54] LABS: Absolute Lymphocyte Count 0.71 X10^3/uL (0.83-4.51); Absolute Neutrophil Count 5.3 X10^3/uL (2.0-7.7); Basophil# 0.03 X10^3/uL; Basophil% 0.5 % (0-1); Eosinophil# 0.07 X10^3/uL; Eosinophils% 1.1 % (0-5); Hematocrit 38.3 % (40-54); Lymphocyte # 0.71 X10^3/ul (4.0); Lymphocyte % 10.8 % (19-41); Mean Corp Hgb Conc 33.9 g/dL (32-36); Mean Corpuscular Hgb 32.6 pg (27.0-32.0); Mean Platelet Vol. 8.9 fl (6.2-12.0); Monocyte# 0.45 X10^3/uL; Monocyte% 6.9 % (0-10); NRBC Flagged by Analyzer 0 % (0-5); Neutrophil # 5.26 X10^3/uL (2.7-7.7); Neutrophil % 80.1 % (47-70); Platelet Count 169 K/mm3 (150-450); RBC Distribution Width CV 13.6 % (11.6-14.6); RBC Distribution Width SD 48.1 fl (35.1-43.9); Red Blood Count 3.99 M/mm3 (4.6-6.2); White Blood Count 6.6 K/mm3 (4.4-11.0)
[2019-06-04 18:10] LABS: ALB/GLOB Ratio 0.8 RATIO (0.9-2.4); AST(SGOT) 20 U/L (15-37); Alanine Aminotransfer ALT/SGPT 19 U/L (16-61); Albumin, Serum 3.1 g/dL (3.2-5.0); Alkaline Phosphatase 68 U/L (45-117); Anion Gap 9 (5-15); BUN 13 mg/dL (7-18); BUN/Creat Ratio 16.2 RATIO (10-20); Calcium,Total 8.3 mg/dL (8.5-10.1); Chloride 98 mmol/L (98-107); EST Glomerular Filtration Rate 104 mL/min (>60); Est Glom Filt Rate - Afr Amer 126 mL/min (>60); Estimated Creatinine Clearance 103.28 ml/min; Globulin 3.8 g/dL (2.2-4.2); Glucose 67 mg/dL (74-106); Lipase 44 U/L (73-393); Protein, Total 6.9 g/dL (6.4-8.2); Sodium Level 134 mmol/L (136-145)
[2019-06-04 18:12] LABS: Lactic Acid 0.7 mmol/L (0.4-2.0)
[2019-06-04 18:59] VITALS: BP 115/67; PULSE 108; RESP 20; O2SAT 94; O2SAT 95
--- NOTE | 2019-06-04 19:42 | ED.DEP ---
ED Disposition - Plan for ED Patient: Instructions: VOMITING AND DIARRHEA, Nonspecific (Adult) Prescriptions: proMETHazine tablet [Phenergan] 25 mg PO Q6H PRN PRN #10 tablet PRN Reason: Nausea Referrals: Alexandre Mora MD [Primary Care Provider] - Maira Hurt MD [STAFF PHYSICIAN] -
[2019-06-04 19:58] VITALS: BP 100/60; PULSE 103; RESP 17
== END 2019-06-04 20:20 | disposition home or self-care (01) ==
LOC: ED 17:17
PROVIDERS: Emergency Provider Emergency Medicine; Family Provider Family Medicine; PCP Family Medicine
DX: R11.2 Nausea with vomiting, unspecified (principal); J44.9 Chronic obstructive pulmonary disease, unspecified; R51 Headache; R10.9 Unspecified abdominal pain; C79.31 Secondary malignant neoplasm of brain; I49.3 Ventricular premature depolarization; Z92.3 Personal history of irradiation; Z85.118 Personal history of other malignant neoplasm of bronchus and lung
CPT/HCPCS: 36591; 70450; 71045; 80053; 83605; 83690; 84484; 85025; 93005; 94640; 99283; J7030; A4216

== ENCOUNTER 2019-06-12 12:59 | Emergency (ER) | payer OTHER, SELFPAY ==
[2019-06-12] VITALS (7 sets, daily range): BP systolic 94–138; BP diastolic 58–110; PULSE 59–121; RESP 14–18; TEMP 36.6; O2SAT 84–98; BMI 22.3
--- NOTE | 2019-06-12 13:15 | RAD_ITS ---
STUDY: X-RAY CHEST REASON FOR EXAM: Male, 64 years old. Brain cancer, illness TECHNIQUE: Frontal views COMPARISON: June 04, 2019 FINDINGS: Stable left venous port. The lungs are clear and expanded. There is no demonstrated pleural abnormality. Normal size heart. Normal mediastinum and yogi. Normal visualized pulmonary arteries. Normal visualized aortic arch and descending thoracic aorta. Normal visualized thoracic spine. Normal visualized ribs, clavicles, and shoulders. There is no demonstrated abnormality of the visualized soft tissue structures of the upper abdomen. RAD/Chest 1 View (Portable) IMPRESSION: Normal x-ray examination of the chest. Electronically Signed: Shiv Boyer DO at 13:48 EDT Tel [phone], Service support ,
--- NOTE | 2019-06-12 14:01 | ED.DCSUM_ITS ---
History of Present Illness <Jerry Severino - Last Filed: 06/12/19 14:36> Informant: Patient Onset: Days - 4 days Context: Gradual Onset Timing: Continuous Quality: Nausea and vomiting Location: Abdomen Current Severity: Severe Maximum Severity: Severe Worsened by: Food and fluids and medications Relieved by: Nothing Associated Symptoms: Generalized fatigue and weakness Narrative: 64-year-old male with a history of lung cancer with brain metastasis recently underwent gamma knife treatment and chemotherapy presenting with nausea vomiting malaise and fatigue. Last chemotherapy was 5 days ago. Since that time he has been having difficulty keeping down food fluids and his medications orally due to vomiting. He feels generally weak and tired. He is not short of breath. He denies chest pain. He denies hematemesis or coffee-ground emesis, melena or h ematochezia. Denies abdominal pain. Denies sick contacts. Prior similar symptoms: Yes Recent Illness/Hospitalization: Yes <Joe Mcdermott - Last Filed: 06/12/19 15:50> Chief Complaint: Shortness of Breath Past Medical History <Jerry Severino - Last Filed: 06/12/19 14:36> Prior records reviewed: Yes Past Medical History: - - Lung cancer with brain metastasis Surgical History: - - Gamma knife treatment Smoking Status: Former smoker Alcohol: None Drugs: None - Family History Maternal Family History: Reports: No pertinent history <Joe Mcdermott - Last Filed: 06/12/19 15:50> - Allergies and Home Meds Allergies/Adverse Reactions: Allergies Penicillins Allergy (Intermediate, Verified 06/12/19 13:02) Hives (IV DYE) Iodinated Contrast Media [CONTRASTS] Allergy (Verified 06/12/19 13:02) Hives WELBUTRIN Adverse Reaction (Intermediate, Uncoded 06/12/19 13:02) TACHYCARDIA Primary Care Physician: Alexandre Mora MD [Primary Care Provider] - Review of Systems All systems negative except as indicated General: Reports: Malaise Gastrointestinal: Reports: Nausea, Vomiting <Joe Mcdermott - Last Filed: 06/12/19 15:50> Physical Exam Vital Signs/Narrative: Vital Signs Temp Pulse Resp BP Pulse Ox 06/12/19 14:03 59 L 18 138/110 H 96 06/12/19 13:00 97.8 F 64 16 115/75 92 <Jerry Severino - Last Filed: 06/12/19 14:36> Vital Signs/Narrative: Vital Signs Temp Pulse Resp BP Pulse Ox 06/12/19 13:00 97.8 F 64 16 115/75 92 Inital Vital Signs reviewed: Yes General: Well nourished, Well developed Head: Normocephalic, Atraumatic Eyes: Perrl, EOMI ENT: Dry mucous membranes Neck: Supple, Nontender Cardiovascular: Regular rate, Regular rhythm Respiratory: No distress, CTA bilaterally, Chest nontender Abdomen: Soft, Nontender, Nondistended, Normal bowel sounds, No masses Back: Nontender Extremities: Nontender, No edema Skin: Normal color, No rash Neurological: Alert, Oriented x3 <Joe Mcdermott - Last Filed: 06/12/19 15:50> Diagnostic/Tx/Re-eval - Medical Decision Making I am evaluating this patient with our PA. Nausea and vomiting status chemotherapy for lung COM brain mets. He is also had gamma knife. He denies any neurological changes. Exam is a male no acute distress. Vital signs are stable afebrile. HEENT exam unremarkable. Neck nontender. Lungs clear to auscultation. Heart regular rhythm no murmur. Abdomen is soft and nontender. Normal bowel sounds times. Neurologically is awake and alert with no focal motor deficits at this time. Patient will be treated with IV fluids and nausea medication. Reassess. Labs are pending. <Jerry Severino - Last Filed: 06/12/19 14:36> - Medical Decision Making After fluids morphine and Zofran the patient feels much improved. Chest x-ray and his labs are unremarkable. He is able to tolerate by mouth. He is requesting discharge. He has meds to take at home for pain and nausea. He has an appointment upcoming with palliative care as well as his oncologist. He will follow-up then or return here to the emergency department for worsening symptoms which were discussed. <Joe Mcdermott - Last Filed: 06/12/19 15:50> ED Disposition <Jerry Severino - Last Filed: 06/12/19 14:36> <Joe Mcdermott - Last Filed: 06/12/19 15:50> - Plan for ED Patient: Disposition: Home or Assisted Living Diagnosis: Lung cancer, Nausea and vomiting Instructions: VOMITING (8y-Adult) Referrals: Alexandre Mora MD [Primary Care Provider] -
[2019-06-12] MEDS: 0.9% Normal Saline 1,000 ML 1000 ML IV (14:13)
[2019-06-12] MEDS: Morphine 4 MG/ML Syringe IV ×2 (14:13→15:14)
[2019-06-12] MEDS: Ondansetron 4 MG/2 ML Vial IV (14:17)
[2019-06-12 14:25] LABS: Absolute Neutrophil Count 4.4 X10^3/uL (2.0-7.7); Basophil# 0.03 X10^3/uL; Basophil% 0.5 % (0-1); Eosinophil# 0.03 X10^3/uL; Eosinophils% 0.5 % (0-5); Hematocrit 42.9 % (40-54); Hemoglobin 14.4 g/dL (13.0-16.5); Mean Corp Hgb Conc 33.6 g/dL (32-36); Mean Corpuscular Hgb 31.7 pg (27.0-32.0); Mean Corpuscular Volume 94.5 fL (80-94); Mean Platelet Vol. 9.3 fl (6.2-12.0); Monocyte# 0.38 X10^3/uL; NRBC Flagged by Analyzer 0 % (0-5); Neutrophil # 4.37 X10^3/uL (2.7-7.7); Neutrophil % 80.1 % (47-70); POSITIVE DIFFERENTIAL YES; Platelet Count 219 K/mm3 (150-450); RBC Distribution Width CV 13.4 % (11.6-14.6); RBC Distribution Width SD 46.5 fl (35.1-43.9); Red Blood Count 4.54 M/mm3 (4.6-6.2); White Blood Count 5.5 K/mm3 (4.4-11.0)
[2019-06-12 14:27] LABS: Differential Indicated SCAN CRITERIA MET
[2019-06-12 14:36] LABS: Anion Gap 8 (5-15); BUN 8 mg/dL (7-18); BUN/Creat Ratio 11.3 RATIO (10-20); Calcium,Total 8.6 mg/dL (8.5-10.1); Chloride 101 mmol/L (98-107); Creatinine, Serum 0.71 mg/dL (0.70-1.30); EST Glomerular Filtration Rate 120 mL/min (>60); Est Glom Filt Rate - Afr Amer 145 mL/min (>60); Estimated Creatinine Clearance 110.74 ml/min; Glucose 76 mg/dL (74-106); Potassium 3.9 mmol/L (3.5-5.1); Sodium Level 135 mmol/L (136-145)
--- NOTE | 2019-06-12 15:16 | ED.RN ---
MD NOTIFIED OF INCREASED HEART RATE AND FREQUENT PVCS WHILE ATTEMPTING TO AMBULATE. HEART RATE FROM 71 TO 121 WHEN UP OUT OF BED.
[2019-06-12] MEDS: Albuterol 2.5 MG/3 ML VIAL.NEB. INHALATION (15:27)
== END 2019-06-12 16:12 | disposition home or self-care (01) ==
PROVIDERS: Emergency Provider Physician Assistant Medical; Family Provider Family Medicine; PCP Family Medicine
DX: R11.2 Nausea with vomiting, unspecified (principal); C34.90 Malignant neoplasm of unspecified part of unspecified bronchus or lung; C79.31 Secondary malignant neoplasm of brain; Z88.0 Allergy status to penicillin; Z88.8 Allergy status to other drugs, medicaments and biological substances; Z87.891 Personal history of nicotine dependence
CPT/HCPCS: 36591; 71045; 80048; 85025; 94640; 96361; 96374; 96375; 96376; 99283; J7030; A4216; J2405

== ENCOUNTER 2019-07-13 18:20 | Inpatient (IN) | payer OTHER, SELFPAY ==
[2019-06-12 13:00] VITALS: BMI 22.3
[2019-07-13] VITALS (11 sets, daily range): BP systolic 102–140; BP diastolic 68–86; PULSE 99–122; RESP 12–20; TEMP 36.7–37.4; O2SAT 98–100; BMI 22.3; BMI 21.9; BMI 22.0
--- NOTE | 2019-07-13 18:41 | EKG12_ITS ---
Test Reason : SOB Blood Pressure : / mmHG Vent. Rate : 116 BPM Atrial Rate : 116 BPM P-R Int : 156 ms QRS Dur : 080 ms QT Int : 312 ms P-R-T Axes : 078 067 070 degrees QTc Int : 433 ms Sinus tachycardia Biatrial enlargement Abnormal ECG Confirmed by MAINE HENDRIX, ACE ([id number]), editor in chief newspaper ANAY ORYAL ([id number]) on 07/15/2019 11:42:42 AM Referred By: DEJAH Confirmed By:ANDREW GROVE MD
--- NOTE | 2019-07-13 18:41 | RAD_ITS ---
STUDY: X-RAY CHEST REASON FOR EXAM: Male, 64 years old. Shortness of breath TECHNIQUE: AP portable view of the chest. COMPARISON: June 12, 2019. FINDINGS: There is a port on the left extending to the superior vena cava. There is hyperinflation of the lungs consistent with chronic obstructive lung disease (COPD). There is no demonstrated pleural abnormality. Normal size heart. Normal mediastinum and yogi. Normal visualized pulmonary arteries. Normal visualized aortic arch and descending thoracic aorta. There are diffuse degenerative changes of the visualized thoracic spine. Normal visualized ribs, clavicles, and shoulders. There is no demonstrated abnormality of the visualized soft tissue structures of the upper abdomen. RAD/Chest 1 View (Portable) IMPRESSION: Degenerative changes, as described above. No demonstrated acute cardiopulmonary process. Electronically Signed: Esequiel Ring MD at 19:33 EDT , Service support ,
[2019-07-13] MEDS: Ipratropium/Albuterol Sulfate 3 ML AMPUL.NEB INHALATION ×2 (18:50→22:42)
[2019-07-13] MEDS: Albuterol 2.5 MG/3 ML VIAL.NEB. INHALATION (18:50)
[2019-07-13] MEDS: MethylPREDNISolone 125 MG/2 ML Vial IV (19:00)
[2019-07-13 19:03] LABS: Absolute Lymphocyte Count 0.54 X10^3/uL (0.83-4.51); Absolute Neutrophil Count 8.8 X10^3/uL (2.0-7.7); Basophil# 0.03 X10^3/uL; Basophil% 0.3 % (0-1); Eosinophil# 0.06 X10^3/uL; Eosinophils% 0.6 % (0-5); Hematocrit 43.1 % (40-54); Hemoglobin 13.9 g/dL (13.0-16.5); Lymphocyte # 0.54 X10^3/ul (4.0); Lymphocyte % 5.4 % (19-41); Mean Corp Hgb Conc 32.3 g/dL (32-36); Mean Corpuscular Hgb 30.8 pg (27.0-32.0); Mean Corpuscular Volume 95.4 fL (80-94); Mean Platelet Vol. 9.5 fl (6.2-12.0); Monocyte# 0.51 X10^3/uL; Monocyte% 5.1 % (0-10); NRBC Flagged by Analyzer 0 % (0-5); POSITIVE DIFFERENTIAL YES; Platelet Count 212 K/mm3 (150-450); RBC Distribution Width CV 13.9 % (11.6-14.6); RBC Distribution Width SD 49.1 fl (35.1-43.9); Red Blood Count 4.52 M/mm3 (4.6-6.2)
[2019-07-13 19:05] LABS: Differential Indicated SCAN CRITERIA MET
[2019-07-13 19:10] LABS: Anion Gap 5 (5-15); BUN 14 mg/dL (7-18); BUN/Creat Ratio 16.1 RATIO (10-20); Calcium,Total 9.1 mg/dL (8.5-10.1); Chloride 100 mmol/L (98-107); Creatinine, Serum 0.87 mg/dL (0.70-1.30); EST Glomerular Filtration Rate 95 mL/min (>60); Est Glom Filt Rate - Afr Amer 114 mL/min (>60); Estimated Creatinine Clearance 90.37 ml/min; Glucose 105 mg/dL (74-106); Potassium 4.2 mmol/L (3.5-5.1); Sodium Level 136 mmol/L (136-145)
[2019-07-13 19:47] LABS: Differential Comment SCANNED; Platelet Estimate ADEQUATE (ADEQ); Red Cell Morphology NORM C+C NORMAL (NORM C&C)
--- NOTE | 2019-07-13 20:05 | CT_ITS ---
STUDY: CTA CHEST REASON FOR EXAM: Male, 64 years old. Respiratory distress. Increased shortness of breath. Stage III lung cancer RADIATION DOSAGE (If Supplied By Facility): CTDIvol = ( 13.51 ) mGy, DLP = ( 431.51 ) mGycm TECHNIQUE: The examination was performed with the intravenous administration of 75ML IV Isovue 370. Post-processing of the angiographic images was performed, with multiplanar reformation and 3D reconstruction. Individualized dose optimization techniques were used for this CT. COMPARISON: November 01, 2015. FINDINGS: Port on the left extends to the superior vena cava Normal enhancement of the main pulmonary artery and right and left pulmonary arteries. There is limited enhancement of the bilateral peripheral pulmonary arteries. There is no demonstrated pulmonary embolism. There is atherosclerotic calcification of the aortic arch with tortuosity. There is no demonstrated aortic dissection. Normal heart and pericardium. Normal mediastinum. There are calcified right hilar lymph nodes. Normal visualized trachea and bronchi. The lungs are well expanded. There is emphysema of the lungs. There is mild interstitial accentuation. There is right upper lung atelectasis with regions of bronchiectasis. There is a 0.9 cm right upper lung nodule. There is right lower lung calcified granuloma. Normal pleura. Normal chest wall structures. There are degenerative changes of thoracic spine. There is 2.8 cm left adrenal mass. CT/CTA Chest W/WO Contrast IMPRESSION: CTA chest examination, without a demonstrated pulmonary embolism or arterial dissection. Right upper lung atelectasis and small nodule. Emphysema and fibrotic densities. Electronically Signed: Esequiel Ring MD at 22:20 EDT , Service support ,
[2019-07-13 20:06] LABS: Base Excess 4 mmol/L (-2 to +2); Bicarbonate 29.2 mmol/L (22-26); Blood Gas Specimen Type ART; O2 Delivery Device Nasal Can; PO2 87 mmHG (75-100); SITE R Radial; SO2 96 % (95-99); Total Carbon Dioxide 31 mmol/L; pH 7.39 (7.35-7.45)
[2019-07-13] MEDS: DiphenhydrAMINE 50 MG/ML Syringe 25 MG IV (20:07)
[2019-07-13] MEDS: Aspirin 81 MG TAB.CHEW 324 MG PO (20:11)
--- NOTE | 2019-07-13 20:19 | PCM.HP.STD ---
Problem List (1) Acute respiratory failure with hypoxia and hypercapnia Status: Acute (2) COPD with acute exacerbation Status: Chronic (3) Acute sepsis Status: Acute (4) Cardiac enzymes elevated Status: Acute (5) Metastatic lung cancer (metastasis from lung to other site) Status: Chronic Qualifiers: Laterality: unspecified laterality Qualified Code(s): C34.90 - Malignant neoplasm of unspecified part of unspecified bronchus or lung (6) Tobacco dependence Status: Chronic (7) GERD Status: Chronic History of Present Illness Date of Admission: 07/13/19 Chief Complaint: Dyspnea, wheezing, cough The patient is a 64 y/o M w/ PMHx: Metastatic Lung CA w/ mets to the brain s/p craniotomy, gamma knife therapy, radiation, ongoing chemotherapy following with Dr. Hurt with most recently regimen ~ 2 weeks prior, Chronic COPD, ongoing Tobacco use, GERD, Chronic pain Syndrome, Anxiety and Depression who presents to the [facility] ED on 07/13/19 with ongoing history of progressively worsening fatigue, lethargy, chills although no fever specifically measured but has felt warm to touch, decreased appetite, worsening dyspnea with wheezing, worse with any exertional effort as well as dry ongoing cough x24 to 48 hours prompting ED presentation. In the ED included T 99.4, heart rate 122, BP 119/86, respiratory rate 19, initially 98% on 6 L with transition to BiPAP CBC with WC 10, Hemoccult 113.9, platelet 212 with left shift, ABG with pH 7.39, bicarb 29.2, O2 saturation 96, PCO2 48, PO2 87 on 5 L nasal cannula, BMP unremarkable, troponin 0 0.256, EKG with sinus tachycardia with no acute evidence of ischemia, chest x-ray with chronic changes with no acute cardiopulmonary process noted. In the ED patient ministered DuoNeb, albuterol therapies, aspirin, Benadryl prior to planned CTPA, Solu-Medrol 125 Milgram IV x1. Discussed admission with ED physician and he noted intention to obtain CTPA prior to admission to floor given notable history and presentation. Past Medical History Past Medical History (Chronic Problems): Chronic Problems (This Medical Record has been edited. Action required.) COPD with acute exacerbation (Chronic) Metastatic lung cancer (metastasis from lung to other site) (Chronic) Tobacco dependence (Chronic) Lung cancer (Chronic) Degenerative disc disease, cervical (Chronic) Cervical spondylosis (Chronic) Cerebrovascular disease (Chronic) Mild right internal carotid artery disease Nonspecific white matter ischemic changes GERD (Chronic) Depression (Chronic) ? Arthritis (Chronic) Allergies Penicillins Allergy (Intermediate, Verified 07/13/19 18:25) Hives (IV DYE) Iodinated Contrast Media [CONTRASTS] Allergy (Verified 07/13/19 18:25) Hives WELBUTRIN Adverse Reaction (Intermediate, Uncoded 07/13/19 18:25) TACHYCARDIA Home Medications: Ambulatory Orders Medication Instructions Recorded Albuterol Sulfate [Ventolin Hfa] 2 puff INHALATION Q6H PRN PRN 09/05/18 Prochlorperazine Maleate 10 mg PO Q6H PRN PRN 09/05/18 Sucralfate [Carafate] 1 gm PO 4X/DAY 09/05/18 Umeclidinium Brm/Vilanterol Tr 1 puff INHALATION DAILY 09/05/18 [Anoro Ellipta 62.5-25 Mcg INH] Acetaminophen [Tylenol Extra 1,000 mg PO Q4H PRN PRN 03/30/19 Strength] Gabapentin [Neurontin] 300 mg PO TID PRN PRN 03/30/19 Ondansetron HCl [Zofran] 4 mg PO 4X/DAY PRN PRN 03/30/19 proMETHazine tablet [Phenergan] 25 mg PO Q6H PRN PRN #10 tab 06/04/19 Albuterol Sulfate [Proair 2 puff INHALATION Q6H PRN PRN 07/13/19 Respiclick] Amitriptyline HCl 25 mg PO QHS 07/13/19 Dexamethasone [Decadron] 4 mg PO DAILY 07/13/19 Lorazepam [Ativan] 1 mg PO BID 07/13/19 Methadone HCl 10 mg PO BID PRN PRN 07/13/19 Omeprazole 20 mg PO BID 07/13/19 Oxycodone HCl 20 mg PO Q4H PRN PRN 07/13/19 Paroxetine HCl 40 mg PO DAILY 07/13/19 Tolterodine Tartrate [Detrol LA] 4 mg PO DAILY 07/13/19 Surgical History: - - Craniotomy with tumor resection, gamma knife therapy, right biceps surgery. Psychiatric History: Anxiety, Depression Lives: Spouse/ Significant Other Smoking Status: Current every day smoker - Patient continues to smoke, 1/2 pack/day cigarette tobacco usage. Tobacco Use: Cigarettes Alcohol: None Drugs: None - *Family History Maternal History Items: - - Patient with maternal family history of diabetes. Paternal History Items: - - Patient with maternal family history of bladder cancer. Review of Systems Constitutional: Reports: Anorexia, Chills, Fever, Malaise, Weakness, Fatigue. Denies: Weight Change HEENT: Reports: Head Aches. Denies: Sinus Congestion, Sinus Drainage Cardiovascular: Denies: Chest Pain, Palpitations Respiratory: Reports: Cough, Shortness of Breath, Shortness of breath at rest, Shortness of breath upon exertion, Sputum production, Wheezing Gastrointestinal: Denies: Abdominal Pain, Nausea, Vomiting Genitourinary: Denies: Dysuria Musculoskeletal: Reports: Back Pain, Joint Pain. Denies: Joint Tenderness Skin: Denies: Rash, Wounds Neurological: Denies: Numbness, Tingling, Focal weakness Psychiatric: Reports: Anxiety, Depression. Denies: Homicidal Ideations, Suicidal Ideations Hematologic/ Lymphatic: Reports: Easy Bruising, Easy Bleeding VTE Information - Inpt Only VTE Present on Admission: No VTE Mechan Device Prophylaxis: SCD's VTE Pharm Prophylaxis ordered?: Yes Patient Problems: Active and Suspected Problems (This Medical Record has been edited. Action required.) Acute respiratory failure with hypoxia and hypercapnia (Acute) Acute sepsis (Acute) Cardiac enzymes elevated (Acute) Subjective: Seated upright in the ED bed, mildly lethargic and fatigued, BiPAP in place, still ongoing increased work of breathing, accessory muscle usage and mild respiratory rate increased, answering questions. Patient and do state he does feel improved since initial BiPAP placement. Objective: Physical Examination: General: awake, alert, oriented x 3 and cooperative, seated upright in the ED bed, however fatigued and lethargic, BiPAP in place, still some increased work of breathing and accessory muscle usage, improved from initial presentation however. Skin: normal color, turgor, no icterus, cyanosis. HEENT: AT/NC, EOMI, PERRLA, dry MM, no carotid bruits or JVD noted. Lungs: Severely diminished throughout, greater bases, very soft and expiratory wheezing, increased work of breathing although lessened since initial presentation, increased respiratory rate, BiPAP in place, notes feeling improved since initial presentation but still evident distress. Heart: Tachycardic with regular rhythm; no gallop, rub audible. Abdomen: soft, cachectic habitus, NTTP, ND, normal BS, no HSM. Extremities: no cyanosis, clubbing, or edema. Neurological: patient awake, alert, oriented x 3; cognitive function intact; pupils equally reactive to light and accomodation; cranial nerves II-XII grossly normal, moving all 4 extremities, no focal deficits, strength severely global decrease secondary to acute presentation. Psychiatric: affect appears fatigued, lethargic, no acute evidence of depressive or anxiety feelings. - Physical Exam Vital Signs Temp Pulse Resp BP Pulse Ox 98.6 F 116 H 18 102/68 98 07/13/19 19:27 07/13/19 19:27 07/13/19 18:52 07/13/19 19:27 07/13/19 18:52 Oxygen Flow Rate (L/min) 3 Oxygen Delivery Method Bi-pap Weight: 160 lb Body Mass Index (BMI) 22.3 Finger Stick Blood Glucose 96 Laboratory Tests Past 24 Hrs 07/13/19 07/13/19 07/13/19 15:38 15:38 20:01 WBC 10.0 RBC 4.52 L Hgb 13.9 Hct 43.1 MCV 95.4 H MCH 30.8 MCHC 32.3 RDW Std Deviation 49.1 H RDW Coeff of Irma 13.9 Plt Count 212 MPV 9.5 Immature Gran % (Auto) 0.600 Neut % (Auto) 88.0 H Lymph % (Auto) 5.4 L Leon % (Auto) 5.1 Eos % (Auto) 0.6 Baso % (Auto) 0.3 Absolute Neuts (auto) 8.8 H Absolute Lymphs (auto) 0.54 L Nucleated RBC % 0 Differential Comment SCANNED Platelet Estimate ADEQUATE RBC Morphology NORM C+C Specimen Type ART Sample Site R Radial pH 7.39 Bicarbonate Actual 29.2 H POC Total CO2 31 Base Excess 4 H O2 Saturation 96 ABG pCO2 48.0 H ABG pO2 87 Doug Test NA O2 Delivery Device Nasal Can Liter Flow 5.0 Blood Gas Notified Whom ED Sodium 136 Potassium 4.2 Chloride 100 Carbon Dioxide 31.0 Anion Gap 5 BUN 14 Creatinine 0.87 Estim Creat Clear Calc 90.37 Est GFR (MDRD) Af Amer 114 Est GFR (MDRD) Non-Af 95 BUN/Creatinine Ratio 16.1 Glucose 105 Calcium 9.1 Troponin I 0.256 H Assessment/Plan All Active Problems (This Medical Record has been edited. Action required.) Acute respiratory failure with hypoxia and hypercapnia (Acute) Acute sepsis (Acute) Cardiac enzymes elevated (Acute) Lumbar foraminal stenosis (Acute) Lumbar canal stenosis (Acute) Intractable back pain (Acute) The patient is a 64 y/o M w/ PMHx: Metastatic Lung CA w/ mets to the brain s/p craniotomy, gamma knife therapy, radiation, ongoing chemotherapy following with Dr. Hurt with most recently regimen ~ 2 weeks prior, Chronic COPD, ongoing Tobacco use, GERD, Chronic pain Syndrome, Anxiety and Depression who presents to the [facility] ED on 07/13/19 with ongoing history of progressively worsening fatigue, lethargy, chills although no fever specifically measured but has felt warm to touch, decreased appetite, worsening dyspnea with wheezing, worse with any exertional effort as well as dry ongoing cough x24 to 48 hours. 1. Acute Sepsis secondary to Acute Hypoxic and Hypercarbic Respiratory Failure secondary to Acute on Chronic COPD Exacerbation: Will admit to the ICU, maintain on BIPAP, ICU physician consultation, transition to NC once improving w/ wean as tolerated to room air, continue ATC duonebs, PRN albuterol, IV methylprednisolone, HOB, IS parameters, will initiate abx given low grade T, although no marked WBC elevation does have L shift and septic presentation with IV Doxycycline, requested respiratory viral panel and sputum cultures. Will obtain blood culture x2 prior to antibiotic therapy initiation. 2. Indeterminant Trop, Likely Demand Ischemic secondary to #1: EKG in ED sinus tachycardia with no acute evidence of ischemia, CXR w/ chronic changes with no acute cardia pulmonary process, initial trop 0.256. Will place on a monitored bed to assure no acute myocardial infarction with serial cardiac enzymes and EKGs. ASA, NG, morphine. FLP in AM. Mag pending. ECHO ordered. Initiate and maintain on therapeutic Lovenox pending CTPA and cardiac enzymes trend. 3. Metastatic lung cancer: Noted metastatic lung cancer with metastatic disease to the brain, following with Dr. Hurt, complicates presentation #1, mag and phos pending. 4. Chronic pain syndrome: Chronic back pain, we will maintain on home gabapentin, methadone, oxycodone regimen with as needed breakthrough with hold as needed for lethargy, sedation. 5. GERD: We will continue sucralfate as well as PPI. 6. Anxiety and Depression: We will continue home regimen Ativan and paroxetine. 7. Severe protein calorie malnutrition: Evidenced by BMI, habitus, evident muscle and fat loss, nutrition consulted. 8. DVT prophylaxis: SCDs, therapeutic Lovenox pending CTPA results. De-escalate if cardiac enzyme remains stable and does not elevate further and if no evidence of pulmonary emboli. 9. CODE status: is patient healthcare power of sports attorney and is present, living will is in place. Discussed CODE status at length including difference between FULL code, DNR-CCA and DNR-CC status. Following discussions about the differences in these status, requested Full Code status. does note that if he were to need prolonged more aggressive intervention at that time they would likely withdraw care. Advanced Care Planning Face to Face Time: 16 minutes. Code Visit Inpatient E&M: 87022 Init Hosp L3 Procedures: 42727 Advncd Care Plan 30 Min
--- NOTE | 2019-07-13 20:23 | ED.DCSUM_ITS ---
- ER Visit Summary Date of Service: 07/13/19 Chief Complaint: Shortness of breath History of Present Illness: The patient is a 64 M who presents with shortness of breath. He has a history of lung cancer with metastatic disease to his brain. He is treated with chemo and had brain surgery. He has a port in his left chest. He reports a history of COPD. Denies any chest pain. He does have a cough but no sputum. No fevers. Physical Examination: Afebrile and tachycardic. Patient is tripoding. Wheezing in all peoples. Heart regular. Extremities nontender. Skin unremarkable. Test Results: EKG showed sinus tachycardia. No sign of infarction. Labs were reviewed. Chest x-ray was fairly unremarkable. Emergency Department Course and Treatment: EKG was done. Patient was placed on a monitor. BiPAP was started. He was treated with aerosols and Solu-Medrol. On reevaluation, patient did not feel comfortable with the BiPAP. He was switched to nasal cannula. We did have some difficulty obtaining an oxygen saturation, and so an ABG was done. His oxygen was 87 on 5 L. Patient appeared to be getting tired. He was agreeable to trying BiPAP again. He seemed to do better on the second try. His troponin came back elevated at 0.2. He was treated with aspirin and Lovenox. Hospitalist was contacted and will admit to ICU for further care. Because of his cancer status, I did obtain a CTA prior to admission. No evidence of PE. Treatment Plan: As above Disposition: Admission Impression: 1. Respiratory failure 2. Demand ischemia This note was generated with [employer] dictation software. It may contain incorrect words, spelling, and punctuation that were not noted in review of the chart prior to signing ED Disposition - Plan for ED Patient: Disposition: Acute Care Hospital [facility]
[2019-07-13] MEDS: 0.9% Normal Saline 1,000 ML 125 ML IV (22:37)
[2019-07-13] MEDS: Enoxaparin 80 MG/0.8 ML Syringe SC (22:39)
[2019-07-13] MEDS: Sucralfate 1 GM Tablet PO (22:39)
[2019-07-13] MEDS: Amitriptyline 25 MG Tablet PO (22:39)
[2019-07-13] MEDS: 0.9% NaCl VAD Flush IV (22:42)
[2019-07-13] MEDS: LORazepam 1 MG Tablet PO (22:49)
[2019-07-13 22:57] LABS: Magnesium 2.1 mg/dL (1.6-2.6)
[2019-07-13 23:03] LABS: Cholesterol 165 mg/dL (200); High Density Lipoprotein 52 mg/dL; Phosphorus 4.9 mg/dL (2.5-4.9); Triglycerides 102 mg/dL; Very Low Density Lipoprotein 20 mg/dL (5-40)
[2019-07-14] VITALS (25 sets, daily range): BP systolic 102–151; BP diastolic 62–91; PULSE 82–100; RESP 12–20; TEMP 36.4–36.9; O2SAT 2–100
[2019-07-14 05:02] LABS: Absolute Lymphocyte Count 0.38 X10^3/uL (0.83-4.51); Absolute Neutrophil Count 6.6 X10^3/uL (2.0-7.7); Basophil# 0.01 X10^3/uL; Basophil% 0.1 % (0-1); Hematocrit 39.1 % (40-54); Hemoglobin 12.8 g/dL (13.0-16.5); Lymphocyte # 0.38 X10^3/ul (4.0); Lymphocyte % 5.3 % (19-41); Mean Corp Hgb Conc 32.7 g/dL (32-36); Mean Corpuscular Hgb 30.8 pg (27.0-32.0); Mean Corpuscular Volume 94.2 fL (80-94); Mean Platelet Vol. 9.6 fl (6.2-12.0); Monocyte% 1.4 % (0-10); NRBC Flagged by Analyzer 0 % (0-5); Neutrophil # 6.57 X10^3/uL (2.7-7.7); Neutrophil % 92.2 % (47-70); POSITIVE DIFFERENTIAL YES; Platelet Count 182 K/mm3 (150-450); RBC Distribution Width CV 13.8 % (11.6-14.6); RBC Distribution Width SD 47.7 fl (35.1-43.9); Red Blood Count 4.15 M/mm3 (4.6-6.2); White Blood Count 7.1 K/mm3 (4.4-11.0)
[2019-07-14] MEDS: Albuterol 2.5 MG/3 ML VIAL.NEB. INHALATION (05:02)
[2019-07-14 05:10] LABS: Differential Indicated SCAN CRITERIA MET
[2019-07-14 05:18] LABS: ALB/GLOB Ratio 0.7 RATIO (0.9-2.4); AST(SGOT) 17 U/L (15-37); Alanine Aminotransfer ALT/SGPT 19 U/L (16-61); Albumin, Serum 2.7 g/dL (3.2-5.0); Alkaline Phosphatase 58 U/L (45-117); Anion Gap 8 (5-15); BUN 14 mg/dL (7-18); BUN/Creat Ratio 22.5 RATIO (10-20); Calcium,Total 8.5 mg/dL (8.5-10.1); Chloride 103 mmol/L (98-107); Creatinine, Serum 0.62 mg/dL (0.70-1.30); EST Glomerular Filtration Rate 139 mL/min (>60); Est Glom Filt Rate - Afr Amer 168 mL/min (>60); Estimated Creatinine Clearance 121.44 ml/min; Globulin 3.9 g/dL (2.2-4.2); Glucose 119 mg/dL (74-106); Potassium 4.3 mmol/L (3.5-5.1); Protein, Total 6.6 g/dL (6.4-8.2); Sodium Level 139 mmol/L (136-145)
[2019-07-14] MEDS: Enoxaparin 80 MG/0.8 ML Syringe SC ×2 (05:55→17:35)
[2019-07-14] MEDS: Sucralfate 1 GM Tablet PO ×4 (05:55→22:09)
--- NOTE | 2019-07-14 05:55 | ECHOCS_ITS ---
Reason For Study: SOB Procedure This was a 2D Doppler, Color Flow transthoracic echocardiogram. The study was technically difficult. Patient scanned sitting upright due to SOB. Exam performed portable in ICU/CCU. Left Ventricle Normal size and thickness. The estimated ejection fraction is 65 %. Normal diastology for age. No regional wall motion abnormalities noted. Right Ventricle Normal RV size. Normal systolic function. Atria Normal left atrium. Normal right atrium. Mitral Valve There is no stenosis. No mitral valve insufficiency. Tricuspid Valve There is no tricuspid stenosis. Trivial tricuspid valve insufficiency. Pulmonary artery systolic pressure is 50 mmHg. Aortic Valve Trisinus/trileaflet aortic valve. There is no aortic stenosis. No aortic valve insufficiency. Pulmonic Valve There is no pulmonic valvular stenosis. No pulmonic valve insufficiency. Great Vessels Normal aortic root. Pericardium/Pleural No pericardial effusion. Medication [id number] given slow IV push to enhance endocardial definition. MMode/2D Measurements & Calculations LVIDd: 3.9 cm IVSd: 1.2 cm Ao root diam: 4.0 cm LVIDs: 3.0 cm LVPWd: 1.1 cm RVDd: 3.9 cm FS: 24.3 % LA dimension(2D): 3.0 cm Doppler Measurements & Calculations MV E max sang: 52.9 cm/sec Lat Peak E' Sang: 7.6 cm/sec Med Peak E' Sang: 6.9 cm/sec MV A max sang: 63.1 cm/sec E/E' lat: 6.9 E/E' med: 7.6 MV E/A: 0.84 Ao V2 max: 113.8 cm/sec LV V1 max: 97.3 cm/sec PA V2 max: 100.8 cm/sec Ao max P.2 mmHg LV V1 max P.8 mmHg TR max sang: 330.4 cm/sec TR max P.7 mmHg Interpretation Summary The study was technically difficult. [id number] given slow IV push to enhance endocardial definition. The estimated ejection fraction is 65 %. Normal diastology for age. Pulmonary artery systolic pressure is 50 mmHg. The study was technically difficult. Ordering Physician: Dianna Tomlinson Referring Physician: Alexandre Mora Performed By: Neha Covarrubias RDCS
--- NOTE | 2019-07-14 05:55 | EKG12_ITS ---
Test Reason : AM Blood Pressure : / mmHG Vent. Rate : 087 BPM Atrial Rate : 087 BPM P-R Int : 162 ms QRS Dur : 082 ms QT Int : 388 ms P-R-T Axes : 082 064 072 degrees QTc Int : 466 ms Normal sinus rhythm with sinus arrhythmia Normal ECG When compared with ECG of 13-JUL-2019 19:11, MANUAL COMPARISON REQUIRED, DATA IS UNCONFIRMED Confirmed by MAINE HENDRIX, ACE ([id number]), map editor TYLER POZO ([id number] on 07/18/2019 3:56:58 PM Referred By: MARLIN Confirmed By:ANDREW GROVE MD
--- NOTE | 2019-07-14 06:31 | PCM.CON.CC ---
Reason for Consult Date of Consultation: 07/14/19 Reason for Consultation: Respiratory failure History of Present Illness: The patient is a 64-year-old male, with a history as outlined below, who presented to the emergency department on the evening of July 13 with complaints of shortness of breath. 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 He is currently followed by Dr. Hurt at [facility]. The patient was last seen by his oncologist approximately 1 week ago. The patient does have an approximate [id number] smoking history and continues to smoke cigarettes daily. He is currently followed by Dr. Messina of Pulmonary Medicine at [facility] as well. The patient recently completed gamma knife treatment 2 months ago for his cerebellar metastases. He is also followed by Dr. Yoon, palliative care medicine, for pain management issues. The patient does report having had pulmonary function studies completed previously, but does not recall what that testing showed. He does believe that it did demonstrate evidence of COPD. He is currently prescribed both Anoro Ellipta and as needed albuterol in his home environment. He does report that on average she utilizes his rescue inhaler 2-3 times per day for symptom relief. While the patient does continue to smoke cigarettes daily, he has cut down significantly and is currently making strides towards quitting completely. On presentation to the emergency department, the patient was noted to have a fever of 99.4 ?F. He was also tachycardic and tachypneic. Oxygen saturation was initially documented to be 98% on 6 L/min. Laboratory evaluation revealed no evidence of a leukocytosis. Chemistry profile was unremarkable. Arterial blood gas on 5 L/min revealed a pH of 7.39 with a corresponding PCO2 of 48 and PO2 of 87. Initial troponin was elevated to 0.256. A CTA chest was obtained which revealed no evidence for pulmonary embolism. Bilateral emphysematous changes were noted along with upper lobe bronchiectasis and a 0.9 cm right upper lung nodule. The patient was treated with aerosol nebs and IV steroids. He was placed on BiPAP. The patient was subsequently admitted to the medical intensive care unit for further management. Past Medical History Past Medical History (Chronic Problems): Chronic Problems (This Medical Record has been edited. Action required.) COPD with acute exacerbation (Chronic) Metastatic lung cancer (metastasis from lung to other site) (Chronic) Tobacco dependence (Chronic) Lung cancer (Chronic) Degenerative disc disease, cervical (Chronic) Cervical spondylosis (Chronic) Cerebrovascular disease (Chronic) Mild right internal carotid artery disease Nonspecific white matter ischemic changes GERD (Chronic) Depression (Chronic) ? Arthritis (Chronic) Allergies Penicillins Allergy (Intermediate, Verified 07/13/19 18:25) Hives (IV DYE) Iodinated Contrast Media [CONTRASTS] Allergy (Verified 07/13/19 18:25) Hives WELBUTRIN Adverse Reaction (Intermediate, Uncoded 07/13/19 18:25) TACHYCARDIA Home Medications: Ambulatory Orders Medication Instructions Recorded Albuterol Sulfate [Ventolin Hfa] 2 puff INHALATION Q6H PRN PRN 09/05/18 Prochlorperazine Maleate 10 mg PO Q6H PRN PRN 09/05/18 Sucralfate [Carafate] 1 gm PO 4X/DAY 09/05/18 Umeclidinium Brm/Vilanterol Tr 1 puff INHALATION DAILY 09/05/18 [Anoro Ellipta 62.5-25 Mcg INH] Acetaminophen [Tylenol Extra 1,000 mg PO Q4H PRN PRN 03/30/19 Strength] Gabapentin [Neurontin] 300 mg PO TID PRN PRN 03/30/19 Ondansetron HCl [Zofran] 4 mg PO 4X/DAY PRN PRN 03/30/19 proMETHazine tablet [Phenergan] 25 mg PO Q6H PRN PRN #10 tab 06/04/19 Albuterol Sulfate [Proair 2 puff INHALATION Q6H PRN PRN 07/13/19 Respiclick] Amitriptyline HCl 25 mg PO QHS 07/13/19 Dexamethasone [Decadron] 4 mg PO DAILY 07/13/19 Lorazepam [Ativan] 1 mg PO BID 07/13/19 Methadone HCl 10 mg PO BID PRN PRN 07/13/19 Omeprazole 20 mg PO BID 07/13/19 Oxycodone HCl 20 mg PO Q4H PRN PRN 07/13/19 Paroxetine HCl 40 mg PO DAILY 07/13/19 Tolterodine Tartrate [Detrol LA] 4 mg PO DAILY 07/13/19 Surgical History: - - Craniotomy with tumor resection, gamma knife therapy, right biceps surgery. Psychiatric History: Anxiety, Depression Lives: Spouse/ Significant Other Smoking Status: Current every day smoker Tobacco Use: Cigarettes Alcohol: None Drugs: None - *Family History Maternal History Items: - - Patient with maternal family history of diabetes. Paternal History Items: - - Patient with maternal family history of bladder cancer. Review of Systems Constitutional: Denies: Chills, Fever Eyes: Denies: Blurred vision, Double vision HEENT: Denies: Head Aches, Sinus Congestion, Sinus Drainage Cardiovascular: Denies: Chest Pain, Palpitations Respiratory: Reports: Cough, Shortness of Breath, Wheezing. Denies: Sputum production Gastrointestinal: Denies: Abdominal Pain, Nausea, Vomiting Genitourinary: Denies: Dysuria Musculoskeletal: Denies: Joint Pain, Joint Tenderness Skin: Denies: Rash, Wounds Neurological: Denies: Numbness, Tingling, Focal weakness Psychiatric: Denies: Anxiety, Depression, Homicidal Ideations, Suicidal Ideations Hematologic/ Lymphatic: Denies: Easy Bruising, Easy Bleeding Patient Problems: Active and Suspected Problems (This Medical Record has been edited. Action required.) Acute respiratory failure with hypoxia and hypercapnia (Acute) Acute sepsis (Acute) Cardiac enzymes elevated (Acute) Objective: The patient's most recent lab work, culture data and imaging studies have all been personally reviewed. Respiratory viral panel and blood cultures are pending. - Physical Exam General: Alert, Oriented x3, Cooperative, No apparent distress, - - Sitting upright in bed. Currently maintaining oxygen saturations in the low 90s on room air. HEENT: Atraumatic, PERRLA, Normocephalic Oral: No Gingival or Mucosal Lesions/ Ulcerations Neck: Supple, No Nodes, Trachea Midline Lungs: - - Diminished to auscultation bilaterally with bilateral expiratory wheezing and prolonged expiratory phase noted. Cardiovascular: Regular rate, Regular Rhythm, Normal S1, Normal S2, No murmurs Abdomen: Bowel Sounds Present, Soft, Non Tender, Non-Distended Extremities: No clubbing, No cyanosis, No edema Skin: No breakdown Musculoskeletal: No Tenderness to Palpation of Joints or Extremities Lymphatic: No Cervical, Supraclavicular, or Inguinal Adenopathy Neurological: Cranial nerves II-XII grossly intact, Neuro grossly intact Psych/Mental Status: Normal Affect, Appropriate Vital Signs Temp Pulse Resp BP Pulse Ox 97.6 F L 93 13 141/85 H 98 07/14/19 04:00 07/14/19 06:00 07/14/19 06:00 07/14/19 06:00 07/14/19 05:00 Oxygen Flow Rate (L/min) 2 Oxygen Delivery Method Nasal Cannula Weight: 154 lb 5.177 oz Body Mass Index (BMI) 21.9 Finger Stick Blood Glucose 96 Intake and Output for Last 24 Hours 07/12/19 07/13/19 07/14/19 23:59 23:59 23:59 Intake Total 468.33 / 468.33 828.33 / 828.33 Output Total 425 / 425 Balance 468.33 / 468.33 403.33 / 403.33 Laboratory Tests Past 24 Hrs 07/13/19 07/13/19 07/13/19 15:38 15:38 20:01 WBC 10.0 RBC 4.52 L Hgb 13.9 Hct 43.1 MCV 95.4 H MCH 30.8 MCHC 32.3 RDW Std Deviation 49.1 H RDW Coeff of Irma 13.9 Plt Count 212 MPV 9.5 Immature Gran % (Auto) 0.600 Neut % (Auto) 88.0 H Lymph % (Auto) 5.4 L Crisp % (Auto) 5.1 Eos % (Auto) 0.6 Baso % (Auto) 0.3 Absolute Neuts (auto) 8.8 H Absolute Lymphs (auto) 0.54 L Nucleated RBC % 0 Differential Comment SCANNED Platelet Estimate ADEQUATE RBC Morphology NORM C+C Specimen Type ART Sample Site R Radial pH 7.39 Bicarbonate Actual 29.2 H POC Total CO2 31 Base Excess 4 H O2 Saturation 96 ABG pCO2 48.0 H ABG pO2 87 Doug Test NA O2 Delivery Device Nasal Can Liter Flow 5.0 Blood Gas Notified Whom ED Sodium 136 Potassium 4.2 Chloride 100 Carbon Dioxide 31.0 Anion Gap 5 BUN 14 Creatinine 0.87 Estim Creat Clear Calc 90.37 Est GFR (MDRD) Af Amer 114 Est GFR (MDRD) Non-Af 95 BUN/Creatinine Ratio 16.1 Glucose 105 Calcium 9.1 Phosphorus Magnesium Total Bilirubin AST ALT Alkaline Phosphatase Troponin I 0.256 H Total Protein Albumin Globulin Albumin/Globulin Ratio Triglycerides Cholesterol LDL Cholesterol VLDL Cholesterol HDL Cholesterol 07/13/19 07/13/19 07/14/19 22:25 22:25 01:30 WBC RBC Hgb Hct MCV MCH MCHC RDW Std Deviation RDW Coeff of Irma Plt Count MPV Immature Gran % (Auto) Neut % (Auto) Lymph % (Auto) Crisp % (Auto) Eos % (Auto) Baso % (Auto) Absolute Neuts (auto) Absolute Lymphs (auto) Nucleated RBC % Differential Comment Platelet Estimate RBC Morphology Specimen Type Sample Site pH Bicarbonate Actual POC Total CO2 Base Excess O2 Saturation ABG pCO2 ABG pO2 Doug Test O2 Delivery Device Liter Flow Blood Gas Notified Whom Sodium Potassium Chloride Carbon Dioxide Anion Gap BUN Creatinine Estim Creat Clear Calc Est GFR (MDRD) Af Amer Est GFR (MDRD) Non-Af BUN/Creatinine Ratio Glucose Calcium Phosphorus 4.9 Magnesium 2.1 Total Bilirubin AST ALT Alkaline Phosphatase Troponin I 0.191 H 0.101 H Total Protein Albumin Globulin Albumin/Globulin Ratio Triglycerides 102 Cholesterol 165 LDL Cholesterol 93 VLDL Cholesterol 20 HDL Cholesterol 52 07/14/19 07/14/19 04:50 04:50 WBC 7.1 RBC 4.15 L Hgb 12.8 L Hct 39.1 L MCV 94.2 H MCH 30.8 MCHC 32.7 RDW Std Deviation 47.7 H RDW Coeff of Irma 13.8 Plt Count 182 MPV 9.6 Immature Gran % (Auto) 1.000 H Neut % (Auto) 92.2 H Lymph % (Auto) 5.3 L Crisp % (Auto) 1.4 Eos % (Auto) 0.0 Baso % (Auto) 0.1 Absolute Neuts (auto) 6.6 Absolute Lymphs (auto) 0.38 L Nucleated RBC % 0 Differential Comment Platelet Estimate RBC Morphology Specimen Type Sample Site pH Bicarbonate Actual POC Total CO2 Base Excess O2 Saturation ABG pCO2 ABG pO2 Doug Test O2 Delivery Device Liter Flow Blood Gas Notified Whom Sodium 139 Potassium 4.3 Chloride 103 Carbon Dioxide 28.0 Anion Gap 8 BUN 14 Creatinine 0.62 L Estim Creat Clear Calc 121.44 Est GFR (MDRD) Af Amer 168 Est GFR (MDRD) Non-Af 139 BUN/Creatinine Ratio 22.5 H Glucose 119 H Calcium 8.5 Phosphorus Magnesium Total Bilirubin 0.40 AST 17 ALT 19 Alkaline Phosphatase 58 Troponin I Cancelled Total Protein 6.6 Albumin 2.7 L Globulin 3.9 Albumin/Globulin Ratio 0.7 L Triglycerides Cholesterol LDL Cholesterol VLDL Cholesterol HDL Cholesterol Clinical Impression(s) from Imaging Studies Chest X-Ray 07/13/19 18:41 IMPRESSION: Degenerative changes, as described above. No demonstrated acute cardiopulmonary process. Electronically Signed: Esequiel Ring MD at 19:33 EDT , Service support , Chest CTA 07/13/19 20:05 IMPRESSION: CTA chest examination, without a demonstrated pulmonary embolism or arterial dissection. Right upper lung atelectasis and small nodule. Emphysema and fibrotic densities. Electronically Signed: Esequiel Ring MD at 22:20 EDT , Service support , Assessment/Plan Active and Suspected Problems (This Medical Record has been edited. Action required.) Acute respiratory failure with hypoxia and hypercapnia (Acute) Acute sepsis (Acute) Cardiac enzymes elevated (Acute) RECOMMENDATIONS: 1. Continue bronchodilators and IV steroids. Patient can likely be transitioned to prednisone beginning tomorrow. 2. Wean supplemental oxygen to maintain saturations at or above 90%. 3. Continue nicotine replacement therapy. 4. Antibiotics can be discontinued from my perspective. 5. Await echocardiogram. 6. Recommend close outpatient pulmonary follow-up upon discharge from the hospital. IMPRESSIONS: 1. Acute hypoxemic respiratory failure secondary to COPD with exacerbation CTA chest was obtained and revealed no evidence for PE. There was no acute infiltrative process to suggest pneumonia. Etiology for the patient's exacerbation may have been viral in etiology. Respiratory viral panel is currently pending. At this time, I see no indication for antibiotics. Plan to continue bronchodilators and IV steroids as ordered. Continue to wean supplemental oxygen. If the patient continues to improve clinically, he can be transitioned to prednisone beginning tomorrow. Await echocardiogram. I would recommend close interval follow-up with the patient's primary manufacturing laborer, Dr. Messina at [facility], upon discharge from the hospital. 2. Troponin elevation Likely secondary to demand ischemia. Echocardiogram is currently pending. 3. History of stage IIIb non-small cell lung cancer with brain metastasis Continue outpatient follow-up with Dr. Hurt of oncology. 4. Long-standing tobacco dependency/chronic pain syndrome/neuropathy/anxiety/GERD Complicates care, management, recovery and prognosis. Continue home medications as indicated. DISPOSITION: The patient is medically stable for transfer out of the intensive care unit. This note was generated with [employer] software. It may contain incorrect words, spelling, and punctuation that were not noted in checking the note before signing. Code Visit Inpatient E&M: 43307 Init Hosp L3
[2019-07-14] MEDS: 0.9% Normal Saline 1,000 ML 125 ML IV (06:54)
[2019-07-14] MEDS: Ipratropium/Albuterol Sulfate 3 ML AMPUL.NEB INHALATION ×4 (06:55→19:55)
[2019-07-14] MEDS: oxyCODONE 5 MG Tablet 20 MG PO ×4 (08:23→22:09)
--- NOTE | 2019-07-14 09:01 | PCM.PN.HOSP ---
Patient Problems: Active and Suspected Problems (This Medical Record has been edited. Action required.) Acute respiratory failure with hypoxia and hypercapnia (Acute) Acute sepsis (Acute) Cardiac enzymes elevated (Acute) Subjective: The patient was admitted last night in ICU for progressive worsening of shortness of breath, hypoxia pulse ox 87% on 5 L of oxygen, very tired and respiratory distress. Patient has chronic cough but denies any recent change in severity or characteristic or sputum. No fever or chills. Vitals/I&O's: Vital Signs Temp Pulse Resp BP Pulse Ox 97.6 F L 90 14 120/75 90 07/14/19 04:00 07/14/19 08:00 07/14/19 08:00 07/14/19 08:00 07/14/19 08:00 Oxygen Flow Rate (L/min) 2 Oxygen Delivery Method Nasal Cannula Weight: 154 lb 5.177 oz Body Mass Index (BMI) 21.9 Finger Stick Blood Glucose 96 Intake and Output for Last 24 Hours 07/12/19 07/13/19 07/14/19 23:59 23:59 23:59 Intake Total 468.33 / 468.33 1015.83 / 1015.83 Output Total 425 / 425 Balance 468.33 / 468.33 590.83 / 590.83 General: Alert, Oriented x3, Cooperative HEENT: Atraumatic, PERRLA, EOMI, Normocephalic Neck: Supple, No JVD, Negative Carotid Bruits Lungs: Diminished - Air entry diminished diffusely., Rhonchi - Bilateral inspiratory and expiratory rhonchi present throughout the lungs., Short of Breath - Breath on exertion, Wheezes Cardiovascular: Regular rate, Regular Rhythm, Normal S1, Normal S2, No murmurs Abdomen: Bowel Sounds Present, Soft, Non Tender, Non-Distended Extremities: No edema, Capillary Refill Less than 3 Seconds Skin: No rashes, No breakdown, - - Has port on the left subclavicular region. Musculoskeletal: No Tenderness to Palpation of Joints or Extremities, Arthritic Changes Neurological: Cranial nerves II-XII grossly intact, Deep Tendon Reflexes 2+/4 and Symmetrical, Neuro grossly intact, Motor Exam 5/5 strength throughout Psych/Mental Status: Normal Affect, Appropriate, Agitated, Anxious Laboratory Results 07/13/19 15:38: WBC 10.0, RBC 4.52 L, Hgb 13.9, Hct 43.1, MCV 95.4 H, MCH 30.8, MCHC 32.3, RDW Std Deviation 49.1 H, RDW Coeff of Irma 13.9, Plt Count 212, MPV 9.5, Immature Gran % (Auto) 0.600, Neut % (Auto) 88.0 H, Lymph % (Auto) 5.4 L, Davis % (Auto) 5.1, Eos % (Auto) 0.6, Baso % (Auto) 0.3, Absolute Neuts (auto) 8.8 H, Absolute Lymphs (auto) 0.54 L, Nucleated RBC % 0, Differential Comment SCANNED, Platelet Estimate ADEQUATE, RBC Morphology NORM C+C 07/13/19 15:38: Sodium 136, Potassium 4.2, Chloride 100, Carbon Dioxide 31.0, Anion Gap 5, BUN 14, Creatinine 0.87, Estim Creat Clear Calc 90.37, Est GFR (MDRD) Af Amer 114, Est GFR (MDRD) Non-Af 95, BUN/Creatinine Ratio 16.1, Glucose 105, Calcium 9.1, Troponin I 0.256 H 07/13/19 20:01: Specimen Type ART, Sample Site R Radial, pH 7.39, Bicarbonate Actual 29.2 H, POC Total CO2 31, Base Excess 4 H, O2 Saturation 96, ABG pCO2 48.0 H, ABG pO2 87, Doug Test NA, O2 Delivery Device Nasal Can, Liter Flow 5.0, Blood Gas Notified Whom ED 07/13/19 22:25: Magnesium 2.1 07/13/19 22:25: Phosphorus 4.9, Troponin I 0.191 H, Triglycerides 102, Cholesterol 165, LDL Cholesterol 93, VLDL Cholesterol 20, HDL Cholesterol 52 07/14/19 01:30: Troponin I 0.101 H 07/14/19 04:50: WBC 7.1, RBC 4.15 L, Hgb 12.8 L, Hct 39.1 L, MCV 94.2 H, MCH 30.8, MCHC 32.7, RDW Std Deviation 47.7 H, RDW Coeff of Irma 13.8, Plt Count 182, MPV 9.6, Immature Gran % (Auto) 1.000 H, Neut % (Auto) 92.2 H, Lymph % (Auto) 5.3 L, Davis % (Auto) 1.4, Eos % (Auto) 0.0, Baso % (Auto) 0.1, Absolute Neuts (auto) 6.6, Absolute Lymphs (auto) 0.38 L, Nucleated RBC % 0 07/14/19 04:50: Sodium 139, Potassium 4.3, Chloride 103, Carbon Dioxide 28.0, Anion Gap 8, BUN 14, Creatinine 0.62 L, Estim Creat Clear Calc 121.44, Est GFR (MDRD) Af Amer 168, Est GFR (MDRD) Non-Af 139, BUN/Creatinine Ratio 22.5 H, Glucose 119 H, Calcium 8.5, Total Bilirubin 0.40, AST 17, ALT 19, Alkaline Phosphatase 58, Troponin I Cancelled, Total Protein 6.6, Albumin 2.7 L, Globulin 3.9, Albumin/Globulin Ratio 0.7 L Current Medications Acetaminophen (Tylenol) 650 mg PO Q6H PRN PRN PRN Reason: Non-cardiac pain (mod-severe) Al Hydroxide/Mg Hydroxide (Mylanta Ii) 15 - 30 ml PO Q4H PRN PRN PRN Reason: INDIGESTION Albuterol Sulfate (Ventolin Aerosols) 2.5 mg INHALATION Q2H PRN PRN PRN Reason: dyspnea, wheezing Last Admin: 07/14/19 05:02 Dose: 2.5 mg Documented by: Albuterol/Ipratropium (Duoneb) 3 ml INHALATION Q4HWA.RT [facility] Last Admin: 07/14/19 06:55 Dose: 3 ml Documented by: Amitriptyline HCl (Elavil) 25 mg PO QHS [facility] Last Admin: 07/13/19 22:39 Dose: 25 mg Documented by: Dextrose (D50w Syringe) 0 gm IV X1 PRN; Protocol PRN Reason: Hypoglycemia Enoxaparin Sodium (Lovenox) 80 mg SC Q12@0600,1800 [facility] Last Admin: 07/14/19 05:55 Dose: 80 mg Documented by: Gabapentin (Neurontin) 300 mg PO TID PRN PRN PRN Reason: PAIN Glucagon () 1 mg IM .X1 PRN PRN Reason: Hypoglycemia Guaifenesin (Robitussin) 10 ml PO Q4H PRN PRN PRN Reason: COUGH Heparin Sodium (Beef Lung) () 50 units IV UD PRN PRN Reason: HEPARIN FLUSH Hydralazine HCl (Apresoline Iv) 10 mg IV Q4H PRN PRN PRN Reason: SBP > 160 Sodium Chloride () 1,000 mls @ 125 mls/hr IV .Q8H [facility] Last Admin: 07/14/19 06:54 Dose: 125 mls/hr Documented by: Doxycycline Hyclate 100 mg/ (Dextrose) 260 mls @ 250 mls/hr IV Q12 [facility] Last Infusion: 07/13/19 23:44 Dose: Infused Documented by: Sodium Chloride () 250 mls @ 15 mls/hr IV .[id number] PRN PRN Reason: SALINE FLUSH Lorazepam (Ativan) 0.5 mg PO Q4H PRN PRN PRN Reason: Agitation/anxiety with BiPAP Lorazepam (Ativan) 1 mg PO BID [facility] Last Admin: 07/13/19 22:49 Dose: 1 mg Documented by: Magnesium Hydroxide (Milk Of Magnesia) 30 ml PO DAILY PRN PRN Reason: Constipation Melatonin (Melatonin) 3 mg PO QHS PRN PRN PRN Reason: INSOMNIA Methadone HCl () 10 mg PO BID PRN PRN PRN Reason: PAIN Methylprednisolone (Solu-Medrol) 40 mg IV Q8 [facility] Last Admin: 07/14/19 05:54 Dose: 40 mg Documented by: Morphine Sulfate () 2 - 4 mg IV Q4H PRN PRN PRN Reason: PAIN Nicotine (Nicoderm Cq (Pbkc)) 14 mg TRANSDERM. DAILY [facility] Last Admin: 07/13/19 22:38 Dose: 14 mg Documented by: Nitroglycerin (Nitrostat) 0.4 mg SUBLINGUAL Q5M PRN PRN Reason: CARDIAC/CHEST PAIN Nutritional Formula (Lactose Free) (Ensure Enlive) 120 ml PO 4X/DAY [facility] Ondansetron HCl (Zofran) 4 mg IV Q8H PRN PRN PRN Reason: NAUSEA/VOMITING Oxycodone HCl (Oxyir) 20 mg PO Q4H PRN PRN PRN Reason: PAIN Last Admin: 07/14/19 08:23 Dose: 20 mg Documented by: Pantoprazole Sodium (Protonix) 20 mg PO DAILY [facility] Paroxetine HCl (Paxil) 40 mg PO DAILY [facility] Sodium Chloride () 10 - 40 ml IV UD PRN PRN Reason: SALINE FLUSH Sodium Chloride () 10 - 40 ml IV UD PRN PRN Reason: VAD FLUSH Last Admin: 07/13/19 22:42 Dose: 30 ml Documented by: Sucralfate (Carafate) 1 gm PO 1HR_ACHS EFRAÍN Last Admin: 07/14/19 05:55 Dose: 1 gm Documented by: Throat Lozenges (Cepacol Sore Throat Lozenge) 1 lozenge MUCOUS MEM Q2H PRN PRN PRN Reason: Sore Throat/Cough Tolterodine Tartrate (Detrol La) 4 mg PO DAILY [facility] Medical Necessity - Tobacco Use Smoking Status: Current every day smoker Tobacco Use: Cigarettes Assessment/Plan All Active Problems (This Medical Record has been edited. Action required.) Acute respiratory failure with hypoxia and hypercapnia (Acute) Acute sepsis (Acute) Cardiac enzymes elevated (Acute) Lumbar foraminal stenosis (Acute) Lumbar canal stenosis (Acute) Intractable back pain (Acute) The patient is a 64 y/o M NSCLC RIGHT lung with mets to the brain s/p craniotomy, stage IIIb, gamma knife therapy, radiation, ongoing chemotherapy following with Dr. Hurt with most chemotherapy about 2 weeks ago,COPD, GERD, is being admitted on 07/13/19 with shortness of breath, hypoxia, dry cough, pulse ox 87% on 5 L of oxygen, tachypnea and respiratory distress seen. Patient said he quit about 2 months ago but he continues to smoke although had cut down as per intermediate teacher and admitting hospitalist. 1. Sepsis secondary to Acute Hypoxic and Hypercarbic Respiratory Failure secondary to Acute on Chronic COPD Exacerbation: The patient was admitted to ICU but is stable in the morning. Seen by intermediate teacher and recommended transfer to PCU. Continue bronchodilator, IV Solu-Medrol, antibiotic, doxycycline. Strain CTA was done. It is negative for PE but showed chronic Right upper lung atelectasis and small nodule with Emphysema and fibrotic densities. Respiratory panel and blood cultures are pending. 2. Indeterminant Trop, Likely Demand Ischemic secondary to sepsis with acute hypoxic respiratory failure: EKG in ED sinus tachycardia with no acute evidence of ischemia, CXR w/ chronic changes with no acute cardia pulmonary process, initial trop 0.256. Will place on a monitored bed to assure no acute myocardial infarction with serial cardiac enzymes and EKGs. ASA, NG, morphine. FLP in AM. Mag pending. ECHO ordered. Initiate and maintain on therapeutic Lovenox pending CTPA and cardiac enzymes trend. Magnesium 2.1. Phosphorus 4.9. 3. Metastatic lung cancer with mets to brain: Patient follows [facility] oncologist, Dr. Hurt, automatic toe laster Dr Messina and radiotherapy center at [place]. 4. Chronic pain syndrome: Chronic back pain, on home gabapentin, methadone, oxycodone regimen with as needed breakthrough with hold as needed for lethargy, sedation. 5. GERD: We will continue sucralfate as well as PPI. 6. Anxiety and Depression: We will continue home regimen Ativan and paroxetine. 7. Severe protein calorie malnutrition: It is supported by low muscle mass, and fat loss, nutrition consulted. 8. DVT prophylaxis: SCDs, therapeutic Lovenox pending CTPA results. De-escalate if cardiac enzyme remains stable and does not elevate further and if no evidence of pulmonary emboli. 9. CODE status: is patient healthcare power of mergers and acquisitions attorney and has living will. Is full code. 07/13/19 20:01: Specimen Type ART, Sample Site R Radial, pH 7.39, Bicarbonate Actual 29.2 H, POC Total CO2 31, Base Excess 4 H, O2 Saturation 96, ABG pCO2 48.0 H, ABG pO2 87, Doug Test NA, O2 Delivery Device Nasal Can, Liter Flow 5.0, Blood Gas Notified Whom ED 07/13/19 22:25: Magnesium 2.1 07/13/19 22:25: Phosphorus 4.9, Troponin I 0.191 H, Triglycerides 102, Cholesterol 165, LDL Cholesterol 93, VLDL Cholesterol 20, HDL Cholesterol 52 07/14/19 01:30: Troponin I 0.101 H 07/14/19 04:50: WBC 7.1, RBC 4.15 L, Hgb 12.8 L, Hct 39.1 L, MCV 94.2 H, MCH 30.8, MCHC 32.7, RDW Std Deviation 47.7 H, RDW Coeff of Irma 13.8, Plt Count 182, MPV 9.6, Immature Gran % (Auto) 1.000 H, Neut % (Auto) 92.2 H, Lymph % (Auto) 5.3 L, Davis % (Auto) 1.4, Eos % (Auto) 0.0, Baso % (Auto) 0.1, Absolute Neuts (auto) 6.6, Absolute Lymphs (auto) 0.38 L, Nucleated RBC % 0 07/14/19 04:50: Sodium 139, Potassium 4.3, Chloride 103, Carbon Dioxide 28.0, Anion Gap 8, BUN 14, Creatinine 0.62 L, Estim Creat Clear Calc 121.44, Est GFR (MDRD) Af Amer 168, Est GFR (MDRD) Non-Af 139, BUN/Creatinine Ratio 22.5 H, Glucose 119 H, Calcium 8.5, Total Bilirubin 0.40, AST 17, ALT 19, Alkaline Phosphatase 58, Troponin I Cancelled, Total Protein 6.6, Albumin 2.7 L, Globulin 3.9, Albumin/Globulin Ratio 0.7 L Clinical Impression(s) from Imaging Studies Chest X-Ray 07/13/19 18:41 IMPRESSION: Degenerative changes, as described above. No demonstrated acute cardiopulmonary process. Chest CTA 07/13/19 20:05 IMPRESSION: CTA chest examination, without a demonstrated pulmonary embolism or arterial dissection. Right upper lung atelectasis and small nodule. Emphysema and fibrotic densities. Code Visit Inpatient E&M: 48231 Subs Hosp L3
[2019-07-14] MEDS: Tolterodine Tartrate 4 MG CAP.SA PO (09:45)
[2019-07-14] MEDS: Pantoprazole Sodium 20 MG Tablet PO (09:46)
[2019-07-14] MEDS: Paroxetine 20 MG Tablet 40 MG PO (09:47)
[2019-07-14] MEDS: LORazepam 1 MG Tablet PO ×2 (09:51→22:09)
[2019-07-14] MEDS: Methadone 10 MG Tablet PO (09:51)
--- NOTE | 2019-07-14 11:13 | CASEMGMT ---
RN CM Assessment Presentation: COPD Exacerbation, Sepsis. Current Hx of metastatic lung cancer with mets to brain. Intro role of CM and purpose of RN CM assessment to patient and his . Pt is awake, alert and able to participate in assessment. also participated with clarification of details. Demographics, PCP and Pharmacy verified. states they are able to go to physician appointments and do not anticipate difficulty on dc. is able to assist pt at home. PCP: Dr. Mora Specialists: Dr. Hurt, Oncology, Dr. Olivo, Neurosurgeon [place], [place] Preferred Pharmacy: [facility] Insurance: MMO Prescription Benefit: yes, states no difficulty with prescription coverage or obtaining medications LNOK: , Jodi shoemaker Living Arrangements: Lives with in one story home, 4 steps into home. Pt states he requires assistance with ADL's, and is able to help. PT/OT evaluations have been ordered. Transportation: drives DME: walker, cane, shower seat,. Denies use of oxygen or Cpap HHC: none currently SW Consult: pt states he is current with Palliative Care through [facility]. OLIVIA Sumner updated on Palliative Care and pt being current with cancer treatments, Lung with mets to brain. Patient DC goals: Home DC PLAN: anticipate home on dc. RN CM let /pt know cm is available if concerns/needs arise re: dc planning. PT/OT evaluations and nutrition consult pending. Pt required oxygen on admission, now on RA. Ezequiel CAPONE RN AC
[2019-07-14] MEDS: Doxycycline 100 MG CAPSULE PO (11:14)
[2019-07-14] MEDS: 0.9% NaCl Peripheral Flush Adult/Peds IV ×4 (11:19→22:13)
[2019-07-14] MEDS: Morphine 2 MG/ML Syringe IV ×3 (11:19→20:18)
--- NOTE | 2019-07-14 11:30 | CASEMGMT ---
Copies of LW/POA not in chart. SW spoke w/pt and in room, let them know POA/LW not in chart here. states will bring in the documents for hospital to copy and place in chart. BERNARD Fish
[2019-07-14] MEDS: Amitriptyline 25 MG Tablet PO (22:10)
[2019-07-15] VITALS (18 sets, daily range): BP systolic 125–143; BP diastolic 66–85; PULSE 77–147; RESP 16–21; TEMP 36.3–37; O2SAT 84–99
[2019-07-15] MEDS: 0.9% NaCl Peripheral Flush Adult/Peds IV ×5 (02:20→22:26)
[2019-07-15] MEDS: Morphine 2 MG/ML Syringe IV ×2 (02:20→07:37)
[2019-07-15] MEDS: Enoxaparin 80 MG/0.8 ML Syringe SC ×2 (05:54→17:01)
[2019-07-15] MEDS: oxyCODONE 5 MG Tablet 20 MG PO ×3 (05:54→17:01)
[2019-07-15] MEDS: Sucralfate 1 GM Tablet PO ×4 (06:00→22:25)
[2019-07-15] MEDS: Ipratropium/Albuterol Sulfate 3 ML AMPUL.NEB INHALATION ×4 (07:03→19:24)
--- NOTE | 2019-07-15 09:41 | CASEMGMT ---
OLIVIA called [facility] and left a message with Palliative Care letting them know patient is in the hospital. OLIVIA also faxed them information. Alexa MOLINA MSW
[2019-07-15] MEDS: Paroxetine 20 MG Tablet 40 MG PO (10:14)
[2019-07-15] MEDS: Methadone 10 MG Tablet PO ×2 (10:14→20:30)
[2019-07-15] MEDS: Tolterodine Tartrate 4 MG CAP.SA PO (10:14)
[2019-07-15] MEDS: Pantoprazole Sodium 20 MG Tablet PO (10:14)
[2019-07-15] MEDS: LORazepam 1 MG Tablet PO ×2 (10:14→22:02)
--- NOTE | 2019-07-15 12:12 | PN_ITS ---
Patient Problems: Active and Suspected Problems (This Medical Record has been edited. Action required.) Acute respiratory failure with hypoxia and hypercapnia (Acute) Acute sepsis (Acute) Cardiac enzymes elevated (Acute) Subjective: The patient was seen and examined at the bedside this morning. Events from the last 24 hours have been reviewed. The patient is currently afebrile, hemodynamically stable and maintaining appropriate oxygen saturations on 2 L/min while at rest. Unfortunately, with ambulation the patient desaturated to the mid 80s despite being on 6 L/min. While he does report subjective improvement in his breathing quality, he continues to have significant wheezing on examination. Objective: The patient's most recent lab work, culture data and imaging studies have all been personally reviewed. Surface echocardiogram revealed normal LV size and thickness with an ejection fraction of 65%. Pulmonary artery systolic pressure was estimated to be 50 mmHg. Respiratory viral panel was positive for rhinovirus. - Physical Exam General: Alert, Oriented x3, Cooperative, No apparent distress HEENT: Atraumatic, PERRLA, Normocephalic Oral: No Gingival or Mucosal Lesions/ Ulcerations Neck: Supple, No Nodes, Trachea Midline Lungs: Diminished, Wheezes Cardiovascular: Regular rate, Regular Rhythm, Normal S1, Normal S2, No murmurs Abdomen: Bowel Sounds Present, Soft, Non Tender Extremities: No clubbing, No cyanosis, No edema Skin: No breakdown Musculoskeletal: No Tenderness to Palpation of Joints or Extremities, No Muscle Wasting Lymphatic: No Cervical, Supraclavicular, or Inguinal Adenopathy Neurological: Cranial nerves II-XII grossly intact, Neuro grossly intact Psych/Mental Status: Alert and oriented to time, place, person, mood and affect Vital Signs Temp Pulse Resp BP Pulse Ox 98.6 F 147 H 18 137/83 H 85 07/15/19 10:12 07/15/19 11:28 07/15/19 10:12 07/15/19 10:12 07/15/19 11:23 Oxygen Flow Rate (L/min) [ 6 AMBULATION with Oxygen] Oxygen Flow Rate (L/min) 2 Oxygen Delivery Method Nasal Cannula Weight: 150 lb 12.739 oz Body Mass Index (BMI) 21.9 Finger Stick Blood Glucose 96 Intake and Output for Last 24 Hours 07/13/19 07/14/19 07/15/19 23:59 23:59 23:59 Intake Total 468.33 / 468.33 2584.58 / 2584.58 240 / 240 Output Total 425 / 425 Balance 468.33 / 468.33 2159.58 / 2159.58 240 / 240 Microbiology Past 72 Hours 07/13/19 22:35 Respiratory Panel (PCR) - Final Mucosa - Nasopharyngeal Rhinovirus Labs (Last 48 Hours) 07/13/19 07/13/19 07/13/19 15:38 15:38 20:01 WBC 10.0 RBC 4.52 L Hgb 13.9 Hct 43.1 MCV 95.4 H MCH 30.8 MCHC 32.3 RDW Std Deviation 49.1 H RDW Coeff of Irma 13.9 Plt Count 212 MPV 9.5 Immature Gran % (Auto) 0.600 Neut % (Auto) 88.0 H Lymph % (Auto) 5.4 L [place] % (Auto) 5.1 Eos % (Auto) 0.6 Baso % (Auto) 0.3 Absolute Neuts (auto) 8.8 H Absolute Lymphs (auto) 0.54 L Nucleated RBC % 0 Differential Comment SCANNED Platelet Estimate ADEQUATE RBC Morphology NORM C+C Specimen Type ART Sample Site R Radial pH 7.39 Bicarbonate Actual 29.2 H POC Total CO2 31 Base Excess 4 H O2 Saturation 96 ABG pCO2 48.0 H ABG pO2 87 Doug Test NA O2 Delivery Device Nasal Can Liter Flow 5.0 Blood Gas Notified Whom ED Sodium 136 Potassium 4.2 Chloride 100 Carbon Dioxide 31.0 Anion Gap 5 BUN 14 Creatinine 0.87 Estim Creat Clear Calc 90.37 Est GFR (MDRD) Af Amer 114 Est GFR (MDRD) Non-Af 95 BUN/Creatinine Ratio 16.1 Glucose 105 Calcium 9.1 Phosphorus Magnesium Total Bilirubin AST ALT Alkaline Phosphatase Troponin I 0.256 H Total Protein Albumin Globulin Albumin/Globulin Ratio Triglycerides Cholesterol LDL Cholesterol VLDL Cholesterol HDL Cholesterol 07/13/19 07/13/19 07/14/19 22:25 22:25 01:30 WBC RBC Hgb Hct MCV MCH MCHC RDW Std Deviation RDW Coeff of Irma Plt Count MPV Immature Gran % (Auto) Neut % (Auto) Lymph % (Auto) [place] % (Auto) Eos % (Auto) Baso % (Auto) Absolute Neuts (auto) Absolute Lymphs (auto) Nucleated RBC % Differential Comment Platelet Estimate RBC Morphology Specimen Type Sample Site pH Bicarbonate Actual POC Total CO2 Base Excess O2 Saturation ABG pCO2 ABG pO2 Doug Test O2 Delivery Device Liter Flow Blood Gas Notified Whom Sodium Potassium Chloride Carbon Dioxide Anion Gap BUN Creatinine Estim Creat Clear Calc Est GFR (MDRD) Af Amer Est GFR (MDRD) Non-Af BUN/Creatinine Ratio Glucose Calcium Phosphorus 4.9 Magnesium 2.1 Total Bilirubin AST ALT Alkaline Phosphatase Troponin I 0.191 H 0.101 H Total Protein Albumin Globulin Albumin/Globulin Ratio Triglycerides 102 Cholesterol 165 LDL Cholesterol 93 VLDL Cholesterol 20 HDL Cholesterol 52 07/14/19 07/14/19 04:50 04:50 WBC 7.1 RBC 4.15 L Hgb 12.8 L Hct 39.1 L MCV 94.2 H MCH 30.8 MCHC 32.7 RDW Std Deviation 47.7 H RDW Coeff of Irma 13.8 Plt Count 182 MPV 9.6 Immature Gran % (Auto) 1.000 H Neut % (Auto) 92.2 H Lymph % (Auto) 5.3 L [place] % (Auto) 1.4 Eos % (Auto) 0.0 Baso % (Auto) 0.1 Absolute Neuts (auto) 6.6 Absolute Lymphs (auto) 0.38 L Nucleated RBC % 0 Differential Comment Platelet Estimate RBC Morphology Specimen Type Sample Site pH Bicarbonate Actual POC Total CO2 Base Excess O2 Saturation ABG pCO2 ABG pO2 Doug Test O2 Delivery Device Liter Flow Blood Gas Notified Whom Sodium 139 Potassium 4.3 Chloride 103 Carbon Dioxide 28.0 Anion Gap 8 BUN 14 Creatinine 0.62 L Estim Creat Clear Calc 121.44 Est GFR (MDRD) Af Amer 168 Est GFR (MDRD) Non-Af 139 BUN/Creatinine Ratio 22.5 H Glucose 119 H Calcium 8.5 Phosphorus Magnesium Total Bilirubin 0.40 AST 17 ALT 19 Alkaline Phosphatase 58 Troponin I Cancelled Total Protein 6.6 Albumin 2.7 L Globulin 3.9 Albumin/Globulin Ratio 0.7 L Triglycerides Cholesterol LDL Cholesterol VLDL Cholesterol HDL Cholesterol Microbiology 07/13/19 22:35 Mucosa - Nasopharyngeal Respiratory Panel (PCR) - Final Rhinovirus Clinical Impression(s) from Imaging Studies Chest X-Ray 07/13/19 18:41 IMPRESSION: Degenerative changes, as described above. No demonstrated acute cardiopulmonary process. Electronically Signed: Esequiel Ring MD at 19:33 EDT , Service support , Chest CTA 07/13/19 20:05 IMPRESSION: CTA chest examination, without a demonstrated pulmonary embolism or arterial dissection. Right upper lung atelectasis and small nodule. Emphysema and fibrotic densities. Electronically Signed: Esequiel Ring MD at 22:20 EDT , Service support , Medical Necessity - Tobacco Use Smoking Status: Current every day smoker Tobacco Use: Cigarettes Assessment/Plan All Active Problems (This Medical Record has been edited. Action required.) Acute respiratory failure with hypoxia and hypercapnia (Acute) Acute sepsis (Acute) Cardiac enzymes elevated (Acute) Lumbar foraminal stenosis (Acute) Lumbar canal stenosis (Acute) Intractable back pain (Acute) RECOMMENDATIONS: 1. Continue bronchodilators and IV steroids. 2. Wean supplemental oxygen to maintain saturations at or above 90%. 3. Continue nicotine replacement therapy. 4. The patient will need to be able to maintain oxygen saturations on 6 L/min or less with ambulation prior to consideration for discharge. 5. The patient has been scheduled for a follow-up office visit in our office on August 01 at 8:15 AM. IMPRESSIONS: 1. Acute hypoxemic respiratory failure secondary to COPD with exacerbation due to rhinovirus infection CTA chest was obtained and revealed no evidence for PE. There was no acute infiltrative process to suggest pneumonia. The patient's exacerbation appears to have been triggered by a rhinovirus infection. Recommend continuing scheduled bronchodilators and IV steroids as ordered. Continue to wean supplemental oxygen as tolerated. In addition to the aforementioned, the patient's echocardiogram did reveal evidence of pulmonary hypertension. I do suspect that the patient will require supplemental oxygen upon discharge from the hospital. The patient was previously being followed by Dr. Messina at [facility]. However, the patient indicated that he would like to transition his care here to the pulmonary medicine of [place]. The patient was therefore set up with a follow-up appointment in our office on August 01 at 8:15 AM. 2. Troponin elevation Likely secondary to demand ischemia. Echocardiogram revealed intact systolic function. 3. History of stage IIIb non-small cell lung cancer with brain metastasis Continue outpatient follow-up with Dr. Hurt of oncology. 4. Long-standing tobacco dependency/chronic pain syndrome/neuropathy/anxiety/GERD Complicates care, management, recovery and prognosis. Continue home medications as indicated. This note was generated with [employer]AP[employer] software. It may contain incorrect words, spelling, and punctuation that were not noted in checking the note before signing. Code Visit Inpatient E&M: 87695 Subs Hosp L2
[2019-07-15] MEDS: Acetaminophen 325 MG Tablet 650 MG PO (12:54)
--- NOTE | 2019-07-15 14:28 | CASEMGMT ---
Pt 84% on 6liters ambulation per Pamela ROTH. Pt provided with in-network [employer] at this time and pt chose [facility] at this time. Pt expresses frustration that 'I did this to myself' and then explains that he smoked 'multiple packs of cigarettes daily for about 40 years.' Emotional support provided at this time. Green sheet on chart for home oxygen and palliative have d/c info faxed. Per Dr. العلي's note, he does not want pt going unless can go home on more that 6 liters at discharge. Kana ROTH CM
[2019-07-15] MEDS: LORazepam 0.5 MG Tablet PO (16:08)
[2019-07-15] MEDS: Gabapentin 300 MG Capsule PO (17:01)
--- NOTE | 2019-07-15 18:53 | PCM.PROGNOTE ---
Patient Problems: Active and Suspected Problems (This Medical Record has been edited. Action required.) Acute respiratory failure with hypoxia and hypercapnia (Acute) Acute sepsis (Acute) Cardiac enzymes elevated (Acute) Subjective: Patient was seen and examined today, he was ambulated on 6 L of oxygen but had a desaturation to 86% despite being on the oxygen. Patient's respiratory panel resulted in positive for rhinovirus. I talked briefly with pulmonary medicine about his care, while the patient was ambulating on oxygen, he had a 28 beat run of what appeared to be wide-complex SVT, patient was asymptomatic during this arrhythmia. I talked to the patient and his about any cardiac problems he might have-he denied having any history of cardiac disease but stated that one time he saw for a wellness checkup-this is been 5 to 10 years ago. - Physical Exam General: Alert, Oriented x3, Cooperative, No apparent distress, Well developed HEENT: Atraumatic, PERRLA, EOMI, Normocephalic Oral: Moist Mucosa Neck: Supple, No JVD, Trachea Midline, Thyroid Normal Size and Texture Lungs: No rhonchi, No rales, Diminished, Wheezes - Expiratory wheezes are present bilaterally Cardiovascular: Regular rate, Regular Rhythm, Normal S1, Normal S2, No murmurs, PMI Normal Abdomen: Bowel Sounds Present, Soft, Non Tender, Non-Distended Extremities: No clubbing, No cyanosis, No edema, Capillary Refill Less than 3 Seconds Skin: No rashes, No breakdown Musculoskeletal: No Tenderness to Palpation of Joints or Extremities Neurological: Cranial nerves II-XII grossly intact, Neuro grossly intact, Sensory exam intact to light touch and pain, Coordination normal Psych/Mental Status: Normal Affect, Appropriate, Alert and oriented to time, place, person, mood and affect Vital Signs Temp Pulse Resp BP Pulse Ox 97.3 F L 85 20 H 134/69 H 99 07/15/19 16:10 07/15/19 16:10 07/15/19 16:10 07/15/19 16:10 07/15/19 16:10 Oxygen Flow Rate (L/min) [ 6 AMBULATION with Oxygen] Oxygen Flow Rate (L/min) 2 Oxygen Delivery Method Nasal Cannula Weight: 68.4 kg Body Mass Index (BMI) 21.9 Finger Stick Blood Glucose 96 Intake and Output for Last 24 Hours 07/13/19 07/14/19 07/15/19 23:59 23:59 23:59 Intake Total 468.33 / 468.33 2584.58 / 2584.58 1200 / 1200 Output Total 425 / 425 Balance 468.33 / 468.33 2159.58 / 2159.58 1200 / 1200 Microbiology Past 72 Hours 07/15/19 12:24 Gram Stain - Final Sputum, Expectorated/Coughed 07/13/19 22:35 Respiratory Panel (PCR) - Final Mucosa - Nasopharyngeal Rhinovirus Medical Necessity - Tobacco Use Smoking Status: Current every day smoker Tobacco Use: Cigarettes Assessment/Plan All Active Problems (This Medical Record has been edited. Action required.) Acute respiratory failure with hypoxia and hypercapnia (Acute) Acute sepsis (Acute) Cardiac enzymes elevated (Acute) Lumbar foraminal stenosis (Acute) Lumbar canal stenosis (Acute) Intractable back pain (Acute) #1 acute hypoxic respiratory failure secondary to exacerbation of COPD from rhinovirus tracheobronchitis-continue to try to wean patient's oxygen, continue aerosol treatments and IV corticosteroids, pulmonary medicine is participating in his care. #2 acute exacerbation of COPD-see above for treatment #3 acute rhinovirus tracheobronchitis-supportive care will be given #4 cardiac arrhythmias-this appears to be nonsustained SVT/wide-complex tachycardia-patient will be maintained on telemetry and monitored, he will probably need cardiac follow-up as an outpatient, patient is not stable enough at this time to undergo any cardiac testing such as a stress test. #5 intermediate troponin elevation-etiology unclear, possibly secondary to demand ischemia #6 metastatic lung cancer Code Visit Inpatient E&M: 57434 Subs Hosp L2
--- NOTE | 2019-07-15 21:30 | NURSING ---
bedside rounding completed with previous RN.
[2019-07-15] MEDS: Amitriptyline 25 MG Tablet PO (22:26)
[2019-07-16] VITALS (19 sets, daily range): BP systolic 126–153; BP diastolic 73–87; PULSE 64–92; RESP 12–21; TEMP 36.2–36.7; O2SAT 77–97
[2019-07-16] MEDS: Enoxaparin 80 MG/0.8 ML Syringe SC (05:17)
[2019-07-16] MEDS: 0.9% NaCl Peripheral Flush Adult/Peds IV ×4 (05:23→21:51)
[2019-07-16] MEDS: Methadone 10 MG Tablet PO (05:23)
[2019-07-16] MEDS: Ipratropium/Albuterol Sulfate 3 ML AMPUL.NEB INHALATION ×3 (07:05→15:05)
--- NOTE | 2019-07-16 07:26 | PN_ITS ---
Patient Problems: Active and Suspected Problems (This Medical Record has been edited. Action required.) Acute respiratory failure with hypoxia and hypercapnia (Acute) Acute sepsis (Acute) Cardiac enzymes elevated (Acute) Subjective: The patient was seen and examined at the bedside this morning. Events from the last 24 hours have been reviewed. The patient is currently afebrile, hemodynamically stable and maintaining appropriate oxygen saturations on 2 L/min at rest currently. His only complaint this morning is for that of a headache. Objective: The patient's most recent lab work, culture data and imaging studies have all been personally reviewed. Surface echocardiogram revealed normal LV size and thickness with an ejection fraction of 65%. Pulmonary artery systolic pressure was estimated to be 50 mmHg. Respiratory viral panel was positive for rhinovirus. - Physical Exam General: Alert, Oriented x3, Cooperative, No apparent distress HEENT: Atraumatic, PERRLA, Normocephalic Oral: No Gingival or Mucosal Lesions/ Ulcerations Neck: Supple, No Nodes, Trachea Midline Lungs: - - Improved air movement bilaterally with residual expiratory wheezing. Prolonged expiratory phase present. No conversational dyspnea or accessory muscle use. Cardiovascular: Regular rate, Regular Rhythm, Normal S1, Normal S2, No murmurs Abdomen: Bowel Sounds Present, Soft, Non Tender Extremities: No clubbing, No cyanosis, No edema Skin: No breakdown Musculoskeletal: No Tenderness to Palpation of Joints or Extremities Lymphatic: No Cervical, Supraclavicular, or Inguinal Adenopathy Neurological: Cranial nerves II-XII grossly intact, Neuro grossly intact Psych/Mental Status: Alert and oriented to time, place, person, mood and affect Vital Signs Temp Pulse Resp BP Pulse Ox 97.2 F L 74 18 153/80 H 93 07/16/19 05:00 07/16/19 05:00 07/16/19 05:00 07/16/19 05:00 07/16/19 05:00 Oxygen Flow Rate (L/min) [ 6 AMBULATION with Oxygen] Oxygen Flow Rate (L/min) 2 Oxygen Delivery Method Nasal Cannula Weight: 149 lb 4.047 oz Body Mass Index (BMI) 21.9 Finger Stick Blood Glucose 96 Intake and Output for Last 24 Hours 07/14/19 07/15/19 07/16/19 23:59 23:59 23:59 Intake Total 2584.58 / 2584.58 1200 / 1440 240 / 240 Output Total 425 / 425 Balance 2159.58 / 2159.58 1200 / 1440 240 / 240 Microbiology Past 72 Hours 07/15/19 12:24 Gram Stain - Final Sputum, Expectorated/Coughed 07/13/19 22:35 Respiratory Panel (PCR) - Final Mucosa - Nasopharyngeal Rhinovirus Microbiology 07/15/19 12:24 Sputum, Expectorated/Coughed Gram Stain - Final 07/13/19 22:35 Mucosa - Nasopharyngeal Respiratory Panel (PCR) - Final Rhinovirus Clinical Impression(s) from Imaging Studies Chest X-Ray 07/13/19 18:41 IMPRESSION: Degenerative changes, as described above. No demonstrated acute cardiopulmonary process. Electronically Signed: Esequiel Ring MD at 19:33 EDT , Service support , Chest CTA 07/13/19 20:05 IMPRESSION: CTA chest examination, without a demonstrated pulmonary embolism or arterial dissection. Right upper lung atelectasis and small nodule. Emphysema and fibrotic densities. Electronically Signed: Esequiel Ring MD at 22:20 EDT , Service support , Medical Necessity - Tobacco Use Smoking Status: Current every day smoker Tobacco Use: Cigarettes Assessment/Plan All Active Problems (This Medical Record has been edited. Action required.) Acute respiratory failure with hypoxia and hypercapnia (Acute) Acute sepsis (Acute) Cardiac enzymes elevated (Acute) Lumbar foraminal stenosis (Acute) Lumbar canal stenosis (Acute) Intractable back pain (Acute) RECOMMENDATIONS: 1. Continue bronchodilators and IV steroids. At discharge, recommend the following prednisone taper: 40 mg x 3 days, 20 mg x 3 days, 10 mg x 3 days. 2. Wean supplemental oxygen to maintain saturations at or above 90%. 3. Continue nicotine replacement therapy. 4. The patient will need to be able to maintain oxygen saturations on 6 L/min or less with ambulation prior to consideration for discharge. 5. The patient has been scheduled for a follow-up office visit in our office on August 01 at 8:15 AM. IMPRESSIONS: 1. Acute hypoxemic respiratory failure secondary to COPD with exacerbation due to rhinovirus infection CTA chest was obtained and revealed no evidence for PE. There was no acute infiltrative process to suggest pneumonia. The patient's exacerbation appears to have been triggered by a rhinovirus infection. Recommend continuing scheduled bronchodilators and IV steroids as ordered. Continue to wean supplemental oxygen as tolerated. In addition to the aforementioned, the patient's echocardiogram did reveal evidence of pulmonary hypertension. I do suspect that the patient will require supplemental oxygen upon discharge from the hospital. The patient was previously being followed by Dr. Messina at [facility]. However, the patient indicated that he would like to transition his care here to the pulmonary medicine of [place]. The patient was therefore set up with a follow-up appointment in our office on August 01 at 8:15 AM. 2. Troponin elevation Likely secondary to demand ischemia. Echocardiogram revealed intact systolic function. 3. History of stage IIIb non-small cell lung cancer with brain metastasis Continue outpatient follow-up with Dr. Hurt of oncology. 4. Long-standing tobacco dependency/chronic pain syndrome/neuropathy/anxiety/GERD Complicates care, management, recovery and prognosis. Continue home medications as indicated. This note was generated with [employer] dictation software. It may contain incorrect words, spelling, and punctuation that were not noted in checking the note before signing. Code Visit Inpatient E&M: 92028 Subs Hosp L2
[2019-07-16] MEDS: Sucralfate 1 GM Tablet PO ×4 (07:36→21:51)
[2019-07-16] MEDS: oxyCODONE 5 MG Tablet 20 MG PO ×2 (08:05→12:38)
[2019-07-16] MEDS: LORazepam 1 MG Tablet PO (10:50)
[2019-07-16] MEDS: Pantoprazole Sodium 20 MG Tablet PO (10:50)
[2019-07-16] MEDS: Tolterodine Tartrate 4 MG CAP.SA PO (10:50)
[2019-07-16] MEDS: Paroxetine 20 MG Tablet 40 MG PO (10:50)
--- NOTE | 2019-07-16 16:37 | PN_ITS ---
Patient Problems: Active and Suspected Problems (This Medical Record has been edited. Action required.) Acute respiratory failure with hypoxia and hypercapnia (Acute) Acute sepsis (Acute) Cardiac enzymes elevated (Acute) Subjective: Patient was seen and examined today, he continues to have marked expiratory wheezing, he also has periods of confusion-I talked to his and daughter who were in the room at the time of my examination, they confirmed that the patient has these episodes at home-I brought up the possibility of pain medications causing problems with the patient and they agreed it could be possible. I have decided to adjust the patient's pain medications and decrease some. Patient does not appear stable for discharge at this time Objective: General: Patient is somnolent, he answers most questions appropriately HEENT: Atraumatic, PERRLA, EOMI, Normocephalic Oral: Moist Mucosa Neck: Supple, No JVD, Trachea Midline, Thyroid Normal Size and Texture Lungs: No rhonchi, No rales, Diminished, Wheezes - Expiratory wheezes are present bilaterally Cardiovascular: Regular rate, Regular Rhythm, Normal S1, Normal S2, No murmurs, PMI Normal Abdomen: Bowel Sounds Present, Soft, Non Tender, Non-Distended Extremities: No clubbing, No cyanosis, No edema, Capillary Refill Less than 3 Seconds Skin: No rashes, No breakdown Musculoskeletal: No Tenderness to Palpation of Joints or Extremities Neurological: Cranial nerves II-XII grossly intact, Neuro grossly intact, S ensory exam intact to light touch and pain, Coordination normal Psych/Mental Status: Patient is somnolent, he does respond to verbal and painful stimuli and answers most questions appropriately - Physical Exam Vital Signs Temp Pulse Resp BP Pulse Ox 97.8 F 89 20 H 135/75 H 97 07/16/19 14:16 07/16/19 15:05 07/16/19 15:05 07/16/19 14:16 07/16/19 14:16 Oxygen Flow Rate (L/min) [ 6 AMBULATION with Oxygen] Oxygen Flow Rate (L/min) 6 Oxygen Delivery Method Nasal Cannula Weight: 67.7 kg Body Mass Index (BMI) 21.9 Finger Stick Blood Glucose 96 Intake and Output for Last 24 Hours 07/14/19 07/15/19 07/16/19 23:59 23:59 23:59 Intake Total 2584.58 / 2584.58 1200 / 1440 1000 / 1000 Output Total 425 / 425 Balance 2159.58 / 2159.58 1200 / 1440 1000 / 1000 Microbiology Past 72 Hours 07/15/19 12:24 Gram Stain - Final Sputum, Expectorated/Coughed Respiratory Culture - Preliminary Gram negative cocco bacillus 07/13/19 22:30 Blood Culture - Preliminary Blood Culture (Wb) - Other No growth in 48 hours. 07/13/19 22:25 Blood Culture - Preliminary Blood Culture (Wb) - Left Forearm No growth in 48 hours. 07/13/19 22:35 Respiratory Panel (PCR) - Final Mucosa - Nasopharyngeal Rhinovirus Medical Necessity - Tobacco Use Smoking Status: Current every day smoker Tobacco Use: Cigarettes Assessment/Plan All Active Problems (This Medical Record has been edited. Action required.) Acute respiratory failure with hypoxia and hypercapnia (Acute) Acute sepsis (Acute) Cardiac enzymes elevated (Acute) Lumbar foraminal stenosis (Acute) Lumbar canal stenosis (Acute) Intractable back pain (Acute) #1 acute hypoxic respiratory failure secondary to exacerbation of COPD from rhinovirus tracheobronchitis-continue to try to wean patient's oxygen, continue aerosol treatments and IV corticosteroids, pulmonary medicine is participating in his care. I will reexamine the patient tomorrow and check his pulse ox when ambulating to ascertain whether he can be discharged home #2 acute exacerbation of COPD-see above for treatment #3 acute rhinovirus tracheobronchitis-supportive care will be given #4 cardiac arrhythmias-this appears to be nonsustained SVT/wide-complex tachycardia-patient will be maintained on telemetry and monitored #5 intermediate troponin elevation-etiology unclear, possibly secondary to demand ischemia #6 metastatic lung cancer #7 somnolence secondary to pain medications and antianxiety medicine-I have adjusted the patient's pain medication and Ativan. In addition, I have also adjusted the patient's gabapentin Code Visit Inpatient E&M: 12482 Subs Hosp L2
[2019-07-16] MEDS: Acetaminophen 325 MG Tablet 650 MG PO (20:13)
[2019-07-16] MEDS: LORazepam 0.5 MG Tablet PO (21:50)
[2019-07-16] MEDS: oxyCODONE 5 MG Tablet 10 MG PO (21:50)
[2019-07-16] MEDS: Amitriptyline 25 MG Tablet 12.5 MG PO (21:52)
[2019-07-16] MEDS: MELATONIN 3 MG TABLET PO (21:52)
[2019-07-17] VITALS (15 sets, daily range): BP systolic 123–132; BP diastolic 65–77; PULSE 73–104; RESP 15–20; TEMP 35.9–37.1; O2SAT 87–98
[2019-07-17] MEDS: 0.9% NaCl Peripheral Flush Adult/Peds IV ×4 (03:44→22:32)
[2019-07-17 04:02] LABS: Absolute Lymphocyte Count 0.55 X10^3/uL (0.83-4.51); Absolute Neutrophil Count 8.1 X10^3/uL (2.0-7.7); Basophil# 0.01 X10^3/uL; Basophil% 0.1 % (0-1); Hematocrit 40.6 % (40-54); Lymphocyte # 0.55 X10^3/ul (4.0); Lymphocyte % 6.1 % (19-41); Mean Corpuscular Hgb 30.4 pg (27.0-32.0); Mean Corpuscular Volume 94.9 fL (80-94); Mean Platelet Vol. 9.3 fl (6.2-12.0); Monocyte# 0.32 X10^3/uL; Monocyte% 3.6 % (0-10); NRBC Flagged by Analyzer 0 % (0-5); Neutrophil # 8.07 X10^3/uL (2.7-7.7); Neutrophil % 89.8 % (47-70); POSITIVE DIFFERENTIAL YES; Platelet Count 206 K/mm3 (150-450); RBC Distribution Width CV 13.7 % (11.6-14.6); RBC Distribution Width SD 47.4 fl (35.1-43.9); Red Blood Count 4.28 M/mm3 (4.6-6.2)
[2019-07-17 04:03] LABS: Differential Indicated SCAN CRITERIA MET
[2019-07-17 04:11] LABS: Anion Gap 5 (5-15); BUN 17 mg/dL (7-18); BUN/Creat Ratio 31.7 RATIO (10-20); Calcium,Total 8.7 mg/dL (8.5-10.1); Chloride 98 mmol/L (98-107); Creatinine, Serum 0.54 mg/dL (0.70-1.30); EST Glomerular Filtration Rate 165 mL/min (>60); Est Glom Filt Rate - Afr Amer 200 mL/min (>60); Estimated Creatinine Clearance 135.82 ml/min; Glucose 115 mg/dL (74-106); Magnesium 2.4 mg/dL (1.6-2.6); Potassium 4.3 mmol/L (3.5-5.1); Sodium Level 137 mmol/L (136-145)
[2019-07-17] MEDS: Enoxaparin 40 MG/0.4 ML Syringe SC (06:09)
[2019-07-17] MEDS: Sucralfate 1 GM Tablet PO ×4 (06:09→22:31)
[2019-07-17] MEDS: Acetaminophen 325 MG Tablet 650 MG PO (06:19)
--- NOTE | 2019-07-17 07:05 | PN_ITS ---
Patient Problems: Active and Suspected Problems (This Medical Record has been edited. Action required.) Acute respiratory failure with hypoxia and hypercapnia (Acute) Acute sepsis (Acute) Cardiac enzymes elevated (Acute) Subjective: The patient was seen and examined at the bedside this morning. Events from the last 24 hours have been reviewed. The patient is currently afebrile, hemodynamically stable and maintaining appropriate oxygen saturations on 4 L/min via nasal cannula. The patient is currently maintaining saturations in the high 90s at rest. He does report continued improvement in his overall breathing quality. However, he does report the continued presence of a headache. Objective: The patient's most recent lab work, culture data and imaging studies have all been personally reviewed. Surface echocardiogram revealed normal LV size and thickness with an ejection fraction of 65%. Pulmonary artery systolic pressure was estimated to be 50 mmHg. Respiratory viral panel was positive for rhinovirus. - Physical Exam General: Alert, Cooperative, No apparent distress HEENT: Atraumatic, PERRLA, Normocephalic Oral: No Gingival or Mucosal Lesions/ Ulcerations Neck: Supple, No Nodes, Trachea Midline Lungs: - - The patient is currently receiving an aerosol treatment. However, there appears to be improved air movement today and less significant wheezing than previous. Cardiovascular: Regular rate, Regular Rhythm, Normal S1, Normal S2, No murmurs Abdomen: Bowel Sounds Present, Soft, Non Tender Extremities: No clubbing, No cyanosis, No edema Skin: No breakdown Musculoskeletal: No Tenderness to Palpation of Joints or Extremities Lymphatic: No Cervical, Supraclavicular, or Inguinal Adenopathy Neurological: Neuro grossly intact Psych/Mental Status: Flat Affect Vital Signs Temp Pulse Resp BP Pulse Ox 96.7 F L 73 18 123/77 H 98 07/17/19 03:45 07/17/19 03:45 07/17/19 03:45 07/17/19 03:45 07/17/19 03:45 Oxygen Flow Rate (L/min) [ 6 AMBULATION with Oxygen] Oxygen Flow Rate (L/min) 4 Oxygen Delivery Method Nasal Cannula Weight: 147 lb 4.301 oz Body Mass Index (BMI) 21.9 Finger Stick Blood Glucose 96 Intake and Output for Last 24 Hours 07/15/19 07/16/19 07/17/19 23:59 23:59 23:59 Intake Total 1200 / 1440 1620 / 1620 550 / 550 Balance 1200 / 1440 1620 / 1620 550 / 550 Microbiology Past 72 Hours 07/15/19 12:24 Gram Stain - Final Sputum, Expectorated/Coughed Respiratory Culture - Preliminary Gram negative cocco bacillus 07/13/19 22:30 Blood Culture - Preliminary Blood Culture (Wb) - Other No growth in 48 hours. 07/13/19 22:25 Blood Culture - Preliminary Blood Culture (Wb) - Left Forearm No growth in 48 hours. 07/13/19 22:35 Respiratory Panel (PCR) - Final Mucosa - Nasopharyngeal Rhinovirus Laboratory Tests Past 24 Hrs 07/17/19 07/17/19 03:44 03:44 WBC 9.0 RBC 4.28 L Hgb 13.0 Hct 40.6 MCV 94.9 H MCH 30.4 MCHC 32.0 RDW Std Deviation 47.4 H RDW Coeff of Irma 13.7 Plt Count 206 MPV 9.3 Immature Gran % (Auto) 0.400 Neut % (Auto) 89.8 H Lymph % (Auto) 6.1 L Russell % (Auto) 3.6 Eos % (Auto) 0.0 Baso % (Auto) 0.1 Absolute Neuts (auto) 8.1 H Absolute Lymphs (auto) 0.55 L Nucleated RBC % 0 Sodium 137 Potassium 4.3 Chloride 98 Carbon Dioxide 34.0 H Anion Gap 5 BUN 17 Creatinine 0.54 L Estim Creat Clear Calc 135.82 Est GFR (MDRD) Af Amer 200 Est GFR (MDRD) Non-Af 165 BUN/Creatinine Ratio 31.7 H Glucose 115 H Calcium 8.7 Magnesium 2.4 Clinical Impression(s) from Imaging Studies Chest X-Ray 07/13/19 18:41 IMPRESSION: Degenerative changes, as described above. No demonstrated acute cardiopulmonary process. Electronically Signed: Esequiel Ring MD at 19:33 EDT , Service support , Chest CTA 07/13/19 20:05 IMPRESSION: CTA chest examination, without a demonstrated pulmonary embolism or arterial dissection. Right upper lung atelectasis and small nodule. Emphysema and fibrotic densities. Electronically Signed: Esequiel Ring MD at 22:20 EDT , Service support , Medical Necessity - Tobacco Use Smoking Status: Current every day smoker Tobacco Use: Cigarettes Assessment/Plan All Active Problems (This Medical Record has been edited. Action required.) Acute respiratory failure with hypoxia and hypercapnia (Acute) Acute sepsis (Acute) Cardiac enzymes elevated (Acute) Lumbar foraminal stenosis (Acute) Lumbar canal stenosis (Acute) Intractable back pain (Acute) RECOMMENDATIONS: 1. Continue bronchodilators and steroids. At discharge, recommend the following prednisone taper: 40 mg x 3 days, 20 mg x 3 days, 10 mg x 3 days. 2. Wean supplemental oxygen to maintain saturations at or above 90%. 3. Continue nicotine replacement therapy. 4. The patient will need to be able to maintain oxygen saturations on 6 L/min or less with ambulation prior to consideration for discharge. 5. The patient has been scheduled for a follow-up office visit in our office on August 01 at 8:15 AM. IMPRESSIONS: 1. Acute hypoxemic respiratory failure secondary to COPD with exacerbation due to rhinovirus infection CTA chest was obtained and revealed no evidence for PE. There was no acute infiltrative process to suggest pneumonia. The patient's exacerbation appears to have been triggered by a rhinovirus infection. Recommend continuing scheduled bronchodilators and IV steroids as ordered. Continue to wean supplemental oxygen as tolerated. In addition to the aforementioned, the patient's echocardiogram did reveal evidence of pulmonary hypertension. I do suspect that the patient will require supplemental oxygen upon discharge from the hospital. The patient was previously being followed by Dr. Messina at [facility]. However, the patient indicated that he would like to transition his care here to the pulmonary medicine of [place]. The patient was therefore set up with a follow-up appointment in our office on August 01 at 8:15 AM. 2. Troponin elevation Likely secondary to demand ischemia. Echocardiogram revealed intact systolic function. 3. History of stage IIIb non-small cell lung cancer with brain metastasis Continue outpatient follow-up with Dr. Hurt of oncology. The patient's home medication regimen needs to be dose optimized. The patient appears to be prescribed methadone as needed along with oxycodone as needed. 4. Long-standing tobacco dependency/chronic pain syndrome/neuropathy/anxiety/GERD Complicates care, management, recovery and prognosis. Continue home medications as indicated. This note was generated with [employer] software. It may contain incorrect words, spelling, and punctuation that were not noted in checking the note before signing. Code Visit Inpatient E&M: 88788 Subs Hosp L2
[2019-07-17] MEDS: Ipratropium/Albuterol Sulfate 3 ML AMPUL.NEB INHALATION ×4 (07:11→18:58)
[2019-07-17] MEDS: oxyCODONE 5 MG Tablet 10 MG PO (07:50)
[2019-07-17] MEDS: Paroxetine 20 MG Tablet 40 MG PO (10:03)
[2019-07-17] MEDS: Pantoprazole Sodium 20 MG Tablet PO (10:03)
[2019-07-17] MEDS: LORazepam 0.5 MG Tablet PO ×3 (10:03→22:31)
[2019-07-17] MEDS: Tolterodine Tartrate 4 MG CAP.SA PO (10:03)
[2019-07-17] MEDS: Methadone 10 MG Tablet PO ×3 (10:04→22:32)
[2019-07-17] MEDS: guaiFENesin 1,200 MG Tablet 1200 MG PO ×2 (15:39→22:31)
--- NOTE | 2019-07-17 15:49 | NURSING ---
Per patient VAD accessed in ER on admission.
[2019-07-17] MEDS: Gabapentin 100 MG Capsule PO (17:40)
--- NOTE | 2019-07-17 17:55 | PCM.PROGNOTE ---
Patient Problems: Active and Suspected Problems (This Medical Record has been edited. Action required.) Acute respiratory failure with hypoxia and hypercapnia (Acute) Acute sepsis (Acute) Cardiac enzymes elevated (Acute) Subjective: Patient was seen and examined today, he was ambulated in the [facility] this afternoon and he desatted down into the lower 80s on 6 L O2. I told the patient and his family who was present that I did not feel comfortable with discharging the patient, I put a call and a page into pulmonary medicine-Dr. العلي-but did not receive a reply from him. I briefly considered placing the patient on a vest to see if this would help mobilize secretions, and the and I decided not to do this and I decided to leave it up to pulmonary medicine whether this would be instituted. - Physical Exam General: Alert, Oriented x3, Cooperative, Well developed, - - Patient exhibits respiratory distress when ambulating on 6 L of O2 HEENT: Atraumatic, PERRLA, EOMI, Normocephalic Neck: Supple, No JVD, Negative Carotid Bruits Lungs: Diminished, Wheezes - Scattered expiratory wheezes bilaterally Cardiovascular: Regular rate, Regular Rhythm, Normal S1, Normal S2, No murmurs, PMI Normal, No rub noted Abdomen: Bowel Sounds Present, Soft, Non Tender, Non-Distended Extremities: No edema, Capillary Refill Less than 3 Seconds Skin: No rashes, No breakdown Musculoskeletal: No Tenderness to Palpation of Joints or Extremities Neurological: Cranial nerves II-XII grossly intact, Neuro grossly intact, Sensory exam intact to light touch and pain, Coordination normal Psych/Mental Status: Normal Affect, Appropriate, Alert and oriented to time, place, person, mood and affect Vital Signs Temp Pulse Resp BP Pulse Ox 98 F 94 17 124/68 H 93 07/17/19 17:44 07/17/19 17:44 07/17/19 17:44 07/17/19 17:44 07/17/19 17:44 Oxygen Flow Rate (L/min) [ 10 AMBULATION with Oxygen] Oxygen Flow Rate (L/min) 6 Oxygen Delivery Method Nasal Cannula Weight: 66.8 kg Body Mass Index (BMI) 21.9 Finger Stick Blood Glucose 96 Intake and Output for Last 24 Hours 07/15/19 07/16/19 07/17/19 23:59 23:59 23:59 Intake Total 1200 / 1440 1620 / 1620 1070 / 1070 Balance 1200 / 1440 1620 / 1620 1070 / 1070 Microbiology Past 72 Hours 07/15/19 12:24 Gram Stain - Final Sputum, Expectorated/Coughed Respiratory Culture - Final Haemophilus influenzae Presumptive C albicans 07/13/19 22:30 Blood Culture - Preliminary Blood Culture (Wb) - Other No growth in 48 hours. 07/13/19 22:25 Blood Culture - Preliminary Blood Culture (Wb) - Left Forearm No growth in 48 hours. Laboratory Tests Past 24 Hrs 07/17/19 07/17/19 03:44 03:44 WBC 9.0 RBC 4.28 L Hgb 13.0 Hct 40.6 MCV 94.9 H MCH 30.4 MCHC 32.0 RDW Std Deviation 47.4 H RDW Coeff of Irma 13.7 Plt Count 206 MPV 9.3 Immature Gran % (Auto) 0.400 Neut % (Auto) 89.8 H Lymph % (Auto) 6.1 L [place] % (Auto) 3.6 Eos % (Auto) 0.0 Baso % (Auto) 0.1 Absolute Neuts (auto) 8.1 H Absolute Lymphs (auto) 0.55 L Nucleated RBC % 0 Sodium 137 Potassium 4.3 Chloride 98 Carbon Dioxide 34.0 H Anion Gap 5 BUN 17 Creatinine 0.54 L Estim Creat Clear Calc 135.82 Est GFR (MDRD) Af Amer 200 Est GFR (MDRD) Non-Af 165 BUN/Creatinine Ratio 31.7 H Glucose 115 H Calcium 8.7 Magnesium 2.4 Medical Necessity - Tobacco Use Smoking Status: Current every day smoker Tobacco Use: Cigarettes Assessment/Plan All Active Problems (This Medical Record has been edited. Action required.) Acute respiratory failure with hypoxia and hypercapnia (Acute) Acute sepsis (Acute) Cardiac enzymes elevated (Acute) Lumbar foraminal stenosis (Acute) Lumbar canal stenosis (Acute) Intractable back pain (Acute) #1 acute hypoxic respiratory failure secondary to exacerbation of COPD from rhinovirus tracheobronchitis-patient has been resistant with attempts to wean his oxygen presently, due to his requirement for high flow oxygen on ambulation, I do not feel comfortable discharging the patient home at the present time, I have added a mucolytic to the patient's regimen, pulmonary medicine will have to reevaluate the patient tomorrow. #2 acute exacerbation of COPD continue IV corticosteroids as well as aggressive aerosol treatments, pulmonary medicine is participating in his care #3 acute rhinovirus tracheobronchitis-supportive care will be given #4 cardiac arrhythmias-this appears to be nonsustained SVT/wide-complex tachycardia-patient had a brief run of only 5 beats yesterday, he requested that telemetry be discontinued due to the fact that it is causing the patient irritation and he would like it discontinued. #5 intermediate troponin elevation-etiology unclear, possibly secondary to demand ischemia #6 metastatic lung cancer #7 somnolence secondary to pain medications and antianxiety medicine-patient's mental status has improved today, he requested an increase in his pain medication-initially he wanted to be placed back on OxyIR but the patient is also getting methadone so I have decided to increase his dose of methadone to 3 times a day as needed for pain. #8 chronic pain secondary to chronic headache and chronic left leg pain Code Visit Inpatient E&M: 72055 Subs Hosp L2
[2019-07-17] MEDS: Amitriptyline 25 MG Tablet 12.5 MG PO (22:31)
[2019-07-18] VITALS (11 sets, daily range): BP systolic 125–134; BP diastolic 68–79; PULSE 62–95; RESP 14–18; TEMP 36.6–37; O2SAT 78–99
[2019-07-18] MEDS: Acetaminophen 325 MG Tablet 650 MG PO (02:05)
[2019-07-18] MEDS: 0.9% NaCl Peripheral Flush Adult/Peds IV ×3 (05:43→05:54)
[2019-07-18] MEDS: Sucralfate 1 GM Tablet PO ×4 (05:53→21:15)
[2019-07-18] MEDS: Enoxaparin 40 MG/0.4 ML Syringe SC (05:53)
[2019-07-18] MEDS: Methadone 10 MG Tablet PO (05:53)
[2019-07-18 05:54] LABS: Absolute Lymphocyte Count 1.14 X10^3/uL (0.83-4.51); Absolute Neutrophil Count 6.7 X10^3/uL (2.0-7.7); Basophil# 0.01 X10^3/uL; Basophil% 0.1 % (0-1); Eosinophil# 0.07 X10^3/uL; Eosinophils% 0.8 % (0-5); Hemoglobin 12.3 g/dL (13.0-16.5); Lymphocyte # 1.14 X10^3/ul (4.0); Lymphocyte % 13.5 % (19-41); Mean Corp Hgb Conc 31.5 g/dL (32-36); Mean Corpuscular Hgb 29.6 pg (27.0-32.0); Mean Corpuscular Volume 93.8 fL (80-94); Mean Platelet Vol. 9.4 fl (6.2-12.0); Monocyte% 5.9 % (0-10); NRBC Flagged by Analyzer 0 % (0-5); Neutrophil # 6.67 X10^3/uL (2.7-7.7); Neutrophil % 79.3 % (47-70); Platelet Count 188 K/mm3 (150-450); RBC Distribution Width CV 13.7 % (11.6-14.6); Red Blood Count 4.16 M/mm3 (4.6-6.2); White Blood Count 8.4 K/mm3 (4.4-11.0)
[2019-07-18 06:07] LABS: Anion Gap 6 (5-15); BUN 15 mg/dL (7-18); Calcium,Total 8.5 mg/dL (8.5-10.1); Chloride 99 mmol/L (98-107); Creatinine, Serum 0.52 mg/dL (0.70-1.30); EST Glomerular Filtration Rate 172 mL/min (>60); Est Glom Filt Rate - Afr Amer 208 mL/min (>60); Estimated Creatinine Clearance 139.17 ml/min; Glucose 74 mg/dL (74-106); Magnesium 2.3 mg/dL (1.6-2.6); Sodium Level 140 mmol/L (136-145)
[2019-07-18] MEDS: Ipratropium/Albuterol Sulfate 3 ML AMPUL.NEB INHALATION ×4 (06:58→19:07)
[2019-07-18] MEDS: LORazepam 0.5 MG Tablet PO ×2 (09:11→21:14)
[2019-07-18] MEDS: Tolterodine Tartrate 4 MG CAP.SA PO (09:12)
[2019-07-18] MEDS: guaiFENesin 1,200 MG Tablet 1200 MG PO ×2 (09:12→21:15)
[2019-07-18] MEDS: Paroxetine 20 MG Tablet 40 MG PO (09:14)
[2019-07-18] MEDS: Pantoprazole Sodium 20 MG Tablet PO (09:15)
[2019-07-18] MEDS: oxyCODONE 5 MG Tablet PO ×3 (10:53→21:14)
[2019-07-18] MEDS: levoFLOXacin 750 MG Tablet PO (11:23)
--- NOTE | 2019-07-18 12:54 | PN_ITS ---
Patient Problems: Active and Suspected Problems (This Medical Record has been edited. Action required.) Acute respiratory failure with hypoxia and hypercapnia (Acute) Acute sepsis (Acute) Cardiac enzymes elevated (Acute) Subjective: Patient did okay overnight. No acute issues were reported. Patient is still requiring 4 to 6 L nasal cannula at rest to maintain saturations. Patient was ambulated yesterday and required 10 L nasal cannula to maintain saturations. Patient overall feels subjectively improved compared to previous. Patient states his headache is slightly improved, but still reporting some photophobia. - Physical Exam General: Alert, Oriented x3, Cooperative, - - Mild conversational dyspnea. HEENT: Atraumatic, PERRLA, EOMI, Normocephalic, - - No scleral icterus or injection noted. Oral: Moist Mucosa, No Gingival or Mucosal Lesions/ Ulcerations Neck: Supple, No JVD, No Nodes, Trachea Midline Lungs: No rhonchi, No rales, Diminished, Wheezes, - - Symmetric expansion. No dullness to percussion Cardiovascular: Regular rate, Regular Rhythm, Normal S1, Normal S2, No murmurs, No rub noted, No Gallop Abdomen: Bowel Sounds Present, Soft, Non Tender, Non-Distended Extremities: No clubbing, No cyanosis, No edema, Capillary Refill Less than 3 Seconds Skin: No rashes, No breakdown Musculoskeletal: No Tenderness to Palpation of Joints or Extremities Lymphatic: No Cervical, Supraclavicular, or Inguinal Adenopathy Neurological: Cranial nerves II-XII grossly intact, Neuro grossly intact, Motor Exam 5/5 strength throughout Psych/Mental Status: Alert and oriented to time, place, person, mood and affect Vital Signs Temp Pulse Resp BP Pulse Ox 36.6 C 82 14 134/68 H 95 07/18/19 08:15 07/18/19 11:08 07/18/19 11:08 07/18/19 08:15 07/18/19 08:38 Oxygen Flow Rate (L/min) [ 10 AMBULATION with Oxygen] Oxygen Flow Rate (L/min) 4 Oxygen Delivery Method Nasal Cannula Weight: 66 kg Body Mass Index (BMI) 21.9 Finger Stick Blood Glucose 96 Intake and Output for Last 24 Hours 07/16/19 07/17/19 07/18/19 23:59 23:59 23:59 Intake Total 1620 / 1620 1590 / 1590 Balance 1620 / 1620 1590 / 1590 Microbiology Past 72 Hours 07/15/19 12:24 Gram Stain - Final Sputum, Expectorated/Coughed Respiratory Culture - Final Haemophilus influenzae Presumptive C albicans 07/13/19 22:30 Blood Culture - Preliminary Blood Culture (Wb) - Other No growth in 48 hours. 07/13/19 22:25 Blood Culture - Preliminary Blood Culture (Wb) - Left Forearm No growth in 48 hours. Laboratory Tests Past 24 Hrs 07/18/19 07/18/19 05:40 05:40 WBC 8.4 RBC 4.16 L Hgb 12.3 L Hct 39.0 L MCV 93.8 MCH 29.6 MCHC 31.5 L RDW Std Deviation 47.0 H RDW Coeff of Irma 13.7 Plt Count 188 MPV 9.4 Immature Gran % (Auto) 0.400 Neut % (Auto) 79.3 H Lymph % (Auto) 13.5 L [place] % (Auto) 5.9 Eos % (Auto) 0.8 Baso % (Auto) 0.1 Absolute Neuts (auto) 6.7 Absolute Lymphs (auto) 1.14 Nucleated RBC % 0 Sodium 140 Potassium 4.0 Chloride 99 Carbon Dioxide 35.0 H Anion Gap 6 BUN 15 Creatinine 0.52 L Estim Creat Clear Calc 139.17 Est GFR (MDRD) Af Amer 208 Est GFR (MDRD) Non-Af 172 BUN/Creatinine Ratio 29.0 H Glucose 74 Calcium 8.5 Magnesium 2.3 Medical Necessity - Tobacco Use Smoking Status: Current every day smoker Tobacco Use: Cigarettes Assessment/Plan All Active Problems (This Medical Record has been edited. Action required.) Acute respiratory failure with hypoxia and hypercapnia (Acute) Acute sepsis (Acute) Cardiac enzymes elevated (Acute) Lumbar foraminal stenosis (Acute) Lumbar canal stenosis (Acute) Intractable back pain (Acute) RECOMMENDATIONS: 1. Continue bronchodilators and steroids. At discharge, recommend the following prednisone taper: 40 mg x 3 days, 20 mg x 3 days, 10 mg x 3 days. 2. Reinitiate Levaquin therapy 3. Continue nicotine replacement therapy. 4. The patient will need to be able to maintain oxygen saturations on 6 L/min or less with ambulation prior to consideration for discharge. 5. The patient has been scheduled for a follow-up office visit in our office on August 01 at 8:15 AM. IMPRESSIONS: 1. Acute hypoxemic respiratory failure secondary to COPD with exacerbation due to rhinovirus infection CTA chest was obtained and revealed no evidence for PE. There was no acute infiltrative process to suggest pneumonia, but patient has grown H. influenzae which is a pathologic organism and needs to be treated. Clinical suspicion for a superinfection following rhinovirus. Recommend continuing scheduled bronchodilators and IV steroids as ordered. Continue to wean supplemental oxygen as tolerated. In addition to the aforementioned, the patient's echocardiogram did reveal evidence of pulmonary hypertension. I do suspect that the patient will require supplemental oxygen upon discharge from the hospital. She can be discharged if he is requiring 6 L or less with ambulation. The patient was previously being followed by Dr. Messina at [facility]. However, the patient indicated that he would like to transition his care here to the pulmonary medicine of [place]. The patient was therefore set up with a follow-up appointment in our office on August 01 at 8:15 AM. 2. Troponin elevation Likely secondary to demand ischemia. Echocardiogram revealed intact systolic function. 3. History of stage IIIb non-small cell lung cancer with brain metastasis Continue outpatient follow-up with Dr. Hurt of oncology. The patient's home medication regimen needs to be dose optimized. The patient appears to be prescribed methadone as needed along with oxycodone as needed. 4. Long-standing tobacco dependency/chronic pain syndrome/neuropathy/anxiety/GERD Complicates care, management, recovery and prognosis. Continue home medications as indicated. Code Visit Inpatient E&M: 31992 Subs Hosp L2
[2019-07-18] MEDS: Ensure Clear 120 ML Liquid PO ×2 (14:29→21:15)
--- NOTE | 2019-07-18 17:22 | PN_ITS ---
Patient Problems: Active and Suspected Problems (This Medical Record has been edited. Action required.) Acute respiratory failure with hypoxia and hypercapnia (Acute) Acute sepsis (Acute) Cardiac enzymes elevated (Acute) Subjective: Breathing better. Objective: Ambulated earlier and still required a fair amount of oxygen up to 8 L. Was doing better and actually weaned down to 3 L. Vitals/I&O's: Vital Signs Temp Pulse Resp BP Pulse Ox 37.0 C 88 18 125/79 H 99 07/18/19 14:15 07/18/19 15:19 07/18/19 15:19 07/18/19 14:15 07/18/19 15:19 Oxygen Flow Rate (L/min) [ 8 AMBULATION with Oxygen] Oxygen Flow Rate (L/min) 3 Oxygen Delivery Method Nasal Cannula Weight: 66 kg Body Mass Index (BMI) 21.9 Finger Stick Blood Glucose 96 Intake and Output for Last 24 Hours 07/16/19 07/17/19 07/18/19 23:59 23:59 23:59 Intake Total 1620 / 1620 1590 / 1590 Balance 1620 / 1620 1590 / 1590 General: Alert, No apparent distress HEENT: Atraumatic, Normocephalic Oral: Moist Mucosa, No Gingival or Mucosal Lesions/ Ulcerations Neck: No Nodes, Thyroid Normal Size and Texture Lungs: Diminished, - - coarse breath sounds bilaterally. Cardiovascular: Regular rate, Regular Rhythm, Normal S1, Normal S2 Abdomen: Bowel Sounds Present, Soft, Non Tender, Non-Distended Extremities: No edema, No Calf Tenderness Skin: No rashes, No breakdown Musculoskeletal: No Tenderness to Palpation of Joints or Extremities, No Muscle Wasting Psych/Mental Status: Normal Affect, Appropriate Microbiology Past 72 Hours 07/15/19 12:24 Sputum, Expectorated/Coughed Gram Stain - Final 07/15/19 12:24 Sputum, Expectorated/Coughed Respiratory Culture - Final Haemophilus influenzae Presumptive C albicans 07/13/19 22:30 Blood Culture (Wb) - Other Blood Culture - Preliminary No growth in 48 hours. 07/13/19 22:25 Blood Culture (Wb) - Left Forearm Blood Culture - Preliminary No growth in 48 hours. Laboratory Results 07/18/19 05:40: WBC 8.4, RBC 4.16 L, Hgb 12.3 L, Hct 39.0 L, MCV 93.8, MCH 29.6, MCHC 31.5 L, RDW Std Deviation 47.0 H, RDW Coeff of Irma 13.7, Plt Count 188, MPV 9.4, Immature Gran % (Auto) 0.400, Neut % (Auto) 79.3 H, Lymph % (Auto) 13.5 L, [place] % (Auto) 5.9, Eos % (Auto) 0.8, Baso % (Auto) 0.1, Absolute Neuts (auto) 6.7, Absolute Lymphs (auto) 1.14, Nucleated RBC % 0 07/18/19 05:40: Sodium 140, Potassium 4.0, Chloride 99, Carbon Dioxide 35.0 H, Anion Gap 6, BUN 15, Creatinine 0.52 L, Estim Creat Clear Calc 139.17, Est GFR (MDRD) Af Amer 208, Est GFR (MDRD) Non-Af 172, BUN/Creatinine Ratio 29.0 H, Glucose 74, Calcium 8.5, Magnesium 2.3 Current Medications Acetaminophen (Tylenol) 650 mg PO Q6H PRN PRN PRN Reason: Non-cardiac pain (mod-severe) Last Admin: 07/18/19 02:05 Dose: 650 mg Documented by: Albuterol Sulfate (Ventolin Aerosols) 2.5 mg INHALATION Q2H PRN PRN PRN Reason: dyspnea, wheezing Last Admin: 07/14/19 05:02 Dose: 2.5 mg Documented by: Albuterol/Ipratropium (Duoneb) 3 ml INHALATION Q4HWA.RT [facility] Last Admin: 07/18/19 15:19 Dose: 3 ml Documented by: Amitriptyline HCl (Elavil) 12.5 mg PO QHS [facility] Last Admin: 07/17/19 22:31 Dose: 12.5 mg Documented by: Dextrose (D50w Syringe) 0 gm IV X1 PRN; Protocol PRN Reason: Hypoglycemia Enoxaparin Sodium (Lovenox) 40 mg SC DAILY@0600 [facility] Last Admin: 07/18/19 05:53 Dose: 40 mg Documented by: Gabapentin (Neurontin) 100 mg PO TID PRN PRN PRN Reason: PAIN Last Admin: 07/17/19 17:40 Dose: 100 mg Documented by: Glucagon () 1 mg IM .X1 PRN PRN Reason: Hypoglycemia Guaifenesin (Mucinex) 1,200 mg PO BID [facility] Last Admin: 07/18/19 09:12 Dose: 1,200 mg Documented by: Heparin Sodium (Beef Lung) () 50 units IV UD PRN PRN Reason: HEPARIN FLUSH Hydralazine HCl (Apresoline Iv) 10 mg IV Q4H PRN PRN PRN Reason: SBP > 160 Sodium Chloride () 250 mls @ 15 mls/hr IV .[id number] PRN PRN Reason: SALINE FLUSH Levofloxacin (Levaquin Tablet) 750 mg PO DAILY@0600 [facility] Stop: 07/22/19 06:01 Lorazepam (Ativan) 0.5 mg PO BID [facility] Last Admin: 07/18/19 09:11 Dose: 0.5 mg Documented by: Lorazepam (Ativan) 0.5 mg PO Q6H PRN PRN PRN Reason: Agitation/anxiety with BiPAP Last Admin: 07/17/19 17:41 Dose: 0.5 mg Documented by: Melatonin (Melatonin) 3 mg PO QHS PRN PRN PRN Reason: INSOMNIA Last Admin: 07/16/19 21:52 Dose: 3 mg Documented by: Methylprednisolone (Solu-Medrol) 40 mg IV Q8 [facility] Last Admin: 07/18/19 14:29 Dose: 40 mg Documented by: Nicotine (Nicoderm Cq (Pbkc)) 14 mg TRANSDERM. DAILY [facility] Last Admin: 07/18/19 09:13 Dose: 14 mg Documented by: Nitroglycerin (Nitrostat) 0.4 mg SUBLINGUAL Q5M PRN PRN Reason: CARDIAC/CHEST PAIN Nutritional Formula (Lactose Free) (Ensure Clear) 120 ml PO 4X/DAY [facility] Last Admin: 07/18/19 14:29 Dose: 120 ml Documented by: Oxycodone HCl (Oxyir) 5 mg PO Q4H PRN PRN PRN Reason: SEVERE PAIN (6-10/10) Last Admin: 07/18/19 15:14 Dose: 5 mg Documented by: Pantoprazole Sodium (Protonix) 20 mg PO DAILY [facility] Last Admin: 07/18/19 09:15 Dose: 20 mg Documented by: Paroxetine HCl (Paxil) 40 mg PO DAILY [facility] Last Admin: 07/18/19 09:14 Dose: 40 mg Documented by: Sodium Chloride () 10 - 40 ml IV UD PRN PRN Reason: SALINE FLUSH Last Admin: 07/18/19 05:54 Dose: 10 ml Documented by: Sodium Chloride () 10 - 40 ml IV UD PRN PRN Reason: VAD FLUSH Last Admin: 07/13/19 22:42 Dose: 30 ml Documented by: Sucralfate (Carafate) 1 gm PO 1HR_ACHS [facility] Last Admin: 07/18/19 15:23 Dose: 1 gm Documented by: Throat Lozenges (Cepacol Sore Throat Lozenge) 1 lozenge MUCOUS MEM Q2H PRN PRN PRN Reason: Sore Throat/Cough Tolterodine Tartrate (Detrol La) 4 mg PO DAILY [facility] Last Admin: 07/18/19 09:12 Dose: 4 mg Documented by: Medical Necessity - Tobacco Use Smoking Status: Current every day smoker Tobacco Use: Cigarettes Assessment/Plan All Active Problems (This Medical Record has been edited. Action required.) Acute respiratory failure with hypoxia and hypercapnia (Acute) Acute sepsis (Acute) Cardiac enzymes elevated (Acute) Lumbar foraminal stenosis (Acute) Lumbar canal stenosis (Acute) Intractable back pain (Acute) 1. acute hypoxic respiratory failure * 2/2 AECOPD, rhinovirus and H.flu * improved slightly, but still requiring high amounts of oxygen with activity (up to 8 liters) * wean oxygen as tolerated * will need oxygen as tolerated * pulm toilet 2. H flu pneumonia * LVQ * hold methadone while on LVQ given risk of QT prolongation 3. AECOPD * BDs and methylpred 4. stage IIIb NSCLC * follow up w oncology * complicates care 5. VTE proph: LMWH Code Visit Inpatient E&M: 77101 Subs Hosp L2
[2019-07-18] MEDS: Gabapentin 100 MG Capsule PO (21:14)
[2019-07-18] MEDS: Amitriptyline 25 MG Tablet 12.5 MG PO (21:15)
[2019-07-19] VITALS (8 sets, daily range): BP systolic 122–138; BP diastolic 64–79; PULSE 74–91; RESP 18–20; TEMP 36.7–36.9; O2SAT 86–100
[2019-07-19] MEDS: levoFLOXacin 750 MG Tablet PO (06:33)
[2019-07-19] MEDS: Enoxaparin 40 MG/0.4 ML Syringe SC (06:33)
[2019-07-19] MEDS: Sucralfate 1 GM Tablet PO ×2 (06:33→10:19)
--- NOTE | 2019-07-19 09:42 | PN_ITS ---
Patient Problems: Active and Suspected Problems (This Medical Record has been edited. Action required.) Rhinovirus (Acute) Haemophilus influenzae infection (Acute) Acute respiratory failure with hypoxia and hypercapnia (Acute) Acute sepsis (Acute) Cardiac enzymes elevated (Acute) Subjective: The patient was seen and examined at the bedside this morning. Events from the last 24 hours have been reviewed. The patient is currently afebrile, hemodynamically stable and maintaining appropriate oxygen saturations on 3 L/min via nasal cannula. The patient was able to ambulate in the hallway today and maintain oxygen saturations within appropriate limits on 6 L/min. He does report continued improvement in his breathing quality. Objective: The patient's most recent lab work, culture data and imaging studies have all been personally reviewed. Surface echocardiogram revealed normal LV size and thickness with an ejection fraction of 65%. Pulmonary artery systolic pressure was estimated to be 50 mmHg. Respiratory viral panel was positive for rhinovirus. Sputum culture was positive for Haemophilus influenza. - Physical Exam General: Alert, Oriented x3, Cooperative, No apparent distress, - - Family is present at the bedside. HEENT: Atraumatic, PERRLA, Normocephalic Oral: No Gingival or Mucosal Lesions/ Ulcerations Neck: Supple, No Nodes, Trachea Midline Lungs: - - Improved air movement bilaterally with mild residual wheezing. Cardiovascular: Regular rate, Regular Rhythm, Normal S1, Normal S2, No murmurs Abdomen: Bowel Sounds Present, Soft, Non Tender Extremities: No clubbing, No cyanosis, No edema Skin: No breakdown Musculoskeletal: No Tenderness to Palpation of Joints or Extremities Lymphatic: No Cervical, Supraclavicular, or Inguinal Adenopathy Neurological: Cranial nerves II-XII grossly intact, Neuro grossly intact Psych/Mental Status: Alert and oriented to time, place, person, mood and affect Vital Signs Temp Pulse Resp BP Pulse Ox 98.5 F 87 18 124/75 H 95 07/19/19 06:38 07/19/19 06:38 07/19/19 06:38 07/19/19 06:38 07/19/19 07:33 Oxygen Flow Rate (L/min) [ 8 AMBULATION with Oxygen] Oxygen Flow Rate (L/min) 3 Oxygen Delivery Method Nasal Cannula Weight: 144 lb 6.444 oz Body Mass Index (BMI) 21.9 Finger Stick Blood Glucose 96 Intake and Output for Last 24 Hours 07/17/19 07/18/19 07/19/19 23:59 23:59 23:59 Intake Total 1590 / 1590 640 / 640 120 / 120 Balance 1590 / 1590 640 / 640 120 / 120 Microbiology Past 72 Hours 07/13/19 22:25 Blood Culture - Final Blood Culture (Wb) - Left Forearm No growth in 5 days. 07/13/19 22:30 Blood Culture - Final Blood Culture (Wb) - Other No growth in 5 days. 07/15/19 12:24 Gram Stain - Final Sputum, Expectorated/Coughed Respiratory Culture - Final Haemophilus influenzae Presumptive C albicans Labs (Last 48 Hours) 07/18/19 07/18/19 05:40 05:40 WBC 8.4 RBC 4.16 L Hgb 12.3 L Hct 39.0 L MCV 93.8 MCH 29.6 MCHC 31.5 L RDW Std Deviation 47.0 H RDW Coeff of Irma 13.7 Plt Count 188 MPV 9.4 Immature Gran % (Auto) 0.400 Neut % (Auto) 79.3 H Lymph % (Auto) 13.5 L [place] % (Auto) 5.9 Eos % (Auto) 0.8 Baso % (Auto) 0.1 Absolute Neuts (auto) 6.7 Absolute Lymphs (auto) 1.14 Nucleated RBC % 0 Sodium 140 Potassium 4.0 Chloride 99 Carbon Dioxide 35.0 H Anion Gap 6 BUN 15 Creatinine 0.52 L Estim Creat Clear Calc 139.17 Est GFR (MDRD) Af Amer 208 Est GFR (MDRD) Non-Af 172 BUN/Creatinine Ratio 29.0 H Glucose 74 Calcium 8.5 Magnesium 2.3 Microbiology 07/13/19 22:25 Blood Culture (Wb) - Left Forearm Blood Culture - Final No growth in 5 days. 07/13/19 22:30 Blood Culture (Wb) - Other Blood Culture - Final No growth in 5 days. 07/15/19 12:24 Sputum, Expectorated/Coughed Gram Stain - Final 07/15/19 12:24 Sputum, Expectorated/Coughed Respiratory Culture - Final Haemophilus influenzae Presumptive C albicans Clinical Impression(s) from Imaging Studies Chest X-Ray 07/13/19 18:41 IMPRESSION: Degenerative changes, as described above. No demonstrated acute cardiopulmonary process. Electronically Signed: Esequiel Ring MD at 19:33 EDT , Service support , Chest CTA 07/13/19 20:05 IMPRESSION: CTA chest examination, without a demonstrated pulmonary embolism or arterial dissection. Right upper lung atelectasis and small nodule. Emphysema and fibrotic densities. Electronically Signed: Esequiel Ring MD at 22:20 EDT , Service support , Medical Necessity - Tobacco Use Smoking Status: Current every day smoker Tobacco Use: Cigarettes Assessment/Plan All Active Problems (This Medical Record has been edited. Action required.) Rhinovirus (Acute) Haemophilus influenzae infection (Acute) Acute respiratory failure with hypoxia and hypercapnia (Acute) Acute sepsis (Acute) Cardiac enzymes elevated (Acute) Lumbar foraminal stenosis (Acute) Lumbar canal stenosis (Acute) Intractable back pain (Acute) RECOMMENDATIONS: 1. Continue bronchodilators and steroids. At discharge, recommend the follo wing prednisone taper: 40 mg x 3 days, 20 mg x 3 days, 10 mg x 3 days. 2. Wean supplemental oxygen to maintain saturations at or above 90%. 3. Continue Levaquin with plans to complete a 7-day treatment course. 4. Continue nicotine replacement therapy. 5. The patient will need to be able to maintain oxygen saturations on 6 L/min or less with ambulation prior to consideration for discharge. 6. The patient has been scheduled for a follow-up office visit in our office on August 01 at 8:15 AM. IMPRESSIONS: 1. Acute hypoxemic respiratory failure secondary to COPD with exacerbation due to combined Haemophilus influenza/rhinovirus infection CTA chest was obtained and revealed no evidence for PE. Recommend continuing scheduled bronchodilators and IV steroids as ordered. The patient will be ordered to complete a 7-day treatment course of Levaquin. Continue to wean supplemental oxygen as tolerated. In addition to the aforementioned, the patient's echocardiogram did reveal evidence of pulmonary hypertension. I do suspect that the patient will require supplemental oxygen upon discharge from the hospital. The patient was previously being followed by Dr. Messina at [facility]. However, the patient indicated that he would like to transition his care here to the pulmonary medicine of [place]. The patient was therefore set up with a follow-up appointment in our office on August 01 at 8:15 AM. 2. Troponin elevation Likely secondary to demand ischemia. Echocardiogram revealed intact systolic function. 3. History of stage IIIb non-small cell lung cancer with brain metastasis Continue outpatient follow-up with Dr. Hurt of oncology. The patient's home medication regimen needs to be dose optimized. The patient appears to be prescribed methadone as needed along with oxycodone as needed. 4. Long-standing tobacco dependency/chronic pain synd mirna/neuropathy/anxiety/GERD Complicates care, management, recovery and prognosis. Continue home medications as indicated. This note was generated with Shortlist dictation software. It may contain incorrect words, spelling, and punctuation that were not noted in checking the note before signing. Code Visit Inpatient E&M: 14356 Subs Hosp L2
[2019-07-19] MEDS: oxyCODONE 5 MG Tablet PO (10:11)
[2019-07-19] MEDS: LORazepam 0.5 MG Tablet PO (10:12)
[2019-07-19] MEDS: Pantoprazole Sodium 20 MG Tablet PO (10:19)
[2019-07-19] MEDS: Tolterodine Tartrate 4 MG CAP.SA PO (10:19)
[2019-07-19] MEDS: guaiFENesin 1,200 MG Tablet 1200 MG PO (10:19)
[2019-07-19] MEDS: Paroxetine 20 MG Tablet 40 MG PO (10:19)
[2019-07-19] MEDS: Ipratropium/Albuterol Sulfate 3 ML AMPUL.NEB INHALATION ×2 (11:17→14:24)
--- NOTE | 2019-07-19 12:43 | PCM.DC ---
- Discharge Diagnoses Current Active Problems: Current Active and Chronic Problems (This Medical Record has been edited. Action required.) Acute respiratory failure with hypoxia and hypercapnia (Acute) COPD with acute exacerbation (Chronic) Acute sepsis (Acute) Cardiac enzymes elevated (Acute) Metastatic lung cancer (metastasis from lung to other site) (Chronic) You will use the following diet at home:: No restrictions Your food should be the consistency of: Regular Your liquids should be the consistency of: Regular/Thin Call your doctor if you observe: Fever of 101 or Higher, Shortness of breath Additional Instructions: Oxygen 4 liters while at rest, 6 liters with activity. Allergies/Adverse Reactions: Allergies Penicillins Allergy (Intermediate, Verified 07/13/19 18:25) Hives (IV DYE) Iodinated Contrast Media [CONTRASTS] Allergy (Verified 07/13/19 18:25) Hives WELBUTRIN Adverse Reaction (Intermediate, Uncoded 07/13/19 18:25) TACHYCARDIA Medications to take at Discharge Albuterol Sulfate [Ventolin Hfa] 2 puff INHALATION Q6H PRN PRN 09/05/18 Prochlorperazine Maleate 10 mg PO Q6H PRN PRN 09/05/18 Sucralfate [Carafate] 1 gm PO 4X/DAY 09/05/18 Umeclidinium Brm/Vilanterol Tr [Anoro Ellipta 62.5-25 Mcg INH] 1 puff INHALATION DAILY 09/05/18 Acetaminophen [Tylenol] 1,000 mg PO Q4H PRN PRN 03/30/19 Gabapentin [Neurontin] 300 mg PO TID PRN PRN 03/30/19 Ondansetron HCl [Zofran] 4 mg PO 4X/DAY PRN PRN 03/30/19 proMETHazine tablet [Phenergan tablet] 25 mg PO Q6H PRN PRN #10 tab 06/04/19 Albuterol Sulfate [Proair Respiclick] 2 puff INHALATION Q6H PRN PRN 07/13/19 Amitriptyline HCl 25 mg PO QHS 07/13/19 Omeprazole 20 mg PO BID 07/13/19 Tolterodine Tartrate [Detrol LA] 4 mg PO DAILY 07/13/19 Albuterol Aerosols [Ventolin Aerosols] 2.5 mg INHALATION Q4HWA.RT PRN #30 vial.neb. 07/19/19 Albuterol Inhaler [Ventolin Hfa] 1 - 2 puff INHALATION Q4H PRN PRN #1 inhaler 07/19/19 Dexamethasone [Decadron] 4 mg PO DAILY #0 07/19/19 Guaifenesin [Mucinex] 600 mg PO BID #10 tab.er.12h 07/19/19 Lorazepam [Ativan] 1 mg PO BID PRN #0 07/19/19 Nebulizer [Aeroneb Go Nebulizer] 1 ea MC Q4H PRN #1 ea 07/19/19 Oxycodone HCl 10 - 20 mg PO Q4H PRN PRN 1 Days #1 07/19/19 Prednisone 10 mg PO DAILY #30 tab.ds.pk 07/19/19 levoFLOXacin tablet [Levaquin tablet] 750 mg PO DAILY@0600 #5 tab 07/19/19 The following prescriptions were given: Nebulizer [Aeroneb Go Nebulizer] 1 ea MC Q4H PRN #1 ea PRN Reason: Shortness Of Breath Transmission Status: Pending to [facility] levoFLOXacin tablet [Levaquin tablet] 750 mg PO DAILY@0600 #5 tab Transmission Status: Pending to [facility] Guaifenesin [Mucinex] 600 mg PO BID #10 tab.er.12h Transmission Status: Pending to [facility] Prednisone 10 mg PO DAILY #30 tab.ds.pk Transmission Status: Pending to [facility] Albuterol Aerosols [Ventolin Aerosols] 2.5 mg INHALATION Q4HWA.RT PRN #30 vial.neb. PRN Reason: Shortness Of Breath Transmission Status: Pending to [facility] Albuterol Inhaler [Ventolin Hfa] 1 - 2 puff INHALATION Q4H PRN PRN #1 inhaler PRN Reason: Shortness Of Breath Transmission Status: Pending to [facility] Primary Care Physician: Alexandre Mora MD [Primary Care Provider] - Within 2 Weeks Test Results: Test results from this visit will be discussed in further detail at your follow-up appointment, if applicable. Please Follow Up With: Surya Salazar MD When: 2-4 weeks Please Follow Up With: Maira Hurt MD When: 1-2 weeks Proposed Discharge Date: 07/19/19
--- NOTE | 2019-07-19 12:45 | DS.PCM_ITS ---
Discharge Date and Diagnosis - Problem List Patient Problems: Active and Suspected Problems (This Medical Record has been edited. Action required.) Acute respiratory failure with hypoxia and hypercapnia (Acute) Acute sepsis (Acute) Cardiac enzymes elevated (Acute) Haemophilus influenzae infection (Acute) Rhinovirus (Acute) Date of Admission: 07/13/19 Date of Discharge: 07/19/19 - Primary Discharge Diagnosis Active and Suspected Problems (This Medical Record has been edited. Action required.) Acute respiratory failure with hypoxia and hypercapnia (Acute) Acute sepsis (Acute) Cardiac enzymes elevated (Acute) - Secondary Discharge Diagnosis Chronic Problems (This Medical Record has been edited. Action required.) COPD with acute exacerbation (Chronic) Metastatic lung cancer (metastasis from lung to other site) (Chronic) Tobacco dependence (Chronic) Lung cancer (Chronic) Degenerative disc disease, cervical (Chronic) Cervical spondylosis (Chronic) Cerebrovascular disease (Chronic) Mild right internal carotid artery disease Nonspecific white matter ischemic changes GERD (Chronic) Depression (Chronic) ? Arthritis (Chronic) Hospital Course and Treatment Imaging Results: Clinical Impression(s) from Imaging Studies Chest X-Ray 07/13/19 18:41 IMPRESSION: Degenerative changes, as described above. No demonstrated acute cardiopulmonary process. Electronically Signed: Esequiel Ring MD at 19:33 EDT , Service support , Chest CTA 07/13/19 20:05 IMPRESSION: CTA chest examination, without a demonstrated pulmonary embolism or arterial dissection. Right upper lung atelectasis and small nodule. Emphysema and fibrotic densities. Electronically Signed: Esequiel Ring MD at 22:20 EDT , Service support , ness Lyn Operations: None Procedures: None Summary of Care Provided: The patient is a 64 year old M presents with shortness of breath.[] 1. acute hypoxic respiratory failure * 2/2 AECOPD, rhinovirus and H.flu * improved slightly, decreased from 8 to 6 liters with activity. will need 4 liters with rest * wean oxygen as tolerated * will need oxygen as tolerated * pulm toilet * follow up with pulm as outpt. 2. H flu pneumonia * LVQ * hold methadone while on LVQ given risk of QT prolongation 3. AECOPD * BDs * prednisone taper 4. stage IIIb NSCLC * follow up w oncology * complicates care * resume dexamethasone when completed prednisone taper 5. polypharmacy * advise sparing use of lorazepam * no methadone while on levaquin. family has noticed pt more alert since being off of methadone. I advise continue to hold even after levofloxacin completed Patient Problems: Active and Suspected Problems (This Medical Record has been edited. Action required.) Acute respiratory failure with hypoxia and hypercapnia (Acute) Acute sepsis (Acute) Cardiac enzymes elevated (Acute) Haemophilus influenzae infection (Acute) Rhinovirus (Acute) - Physical Exam General: Alert, No apparent distress, - - no respiratory distress. no conversational dyspnea HEENT: Atraumatic, Normocephalic Oral: Moist Mucosa, No Gingival or Mucosal Lesions/ Ulcerations Lungs: Clear to auscultation, Diminished Cardiovascular: Regular rate, Regular Rhythm, Normal S1, Normal S2 Abdomen: Bowel Sounds Present, Soft, Non Tender, Non-Distended, No Hepato- splenomegaly Vital Signs Temp Pulse Resp BP Pulse Ox 36.9 C 83 19 H 122/64 H 86 07/19/19 10:18 07/19/19 11:46 07/19/19 11:46 07/19/19 10:18 07/19/19 10:27 Oxygen Flow Rate (L/min) [ 6 AMBULATION with Oxygen] Oxygen Flow Rate (L/min) 3 Oxygen Delivery Method Nasal Cannula Weight: 65.5 kg Body Mass Index (BMI) 21.9 Finger Stick Blood Glucose 96 Intake and Output for Last 24 Hours 07/17/19 07/18/19 07/19/19 23:59 23:59 23:59 Intake Total 1590 / 1590 640 / 640 120 / 120 Balance 1590 / 1590 640 / 640 120 / 120 Microbiology Past 72 Hours 07/13/19 22:25 Blood Culture - Final Blood Culture (Wb) - Left Forearm No growth in 5 days. 07/13/19 22:30 Blood Culture - Final Blood Culture (Wb) - Other No growth in 5 days. 07/15/19 12:24 Gram Stain - Final Sputum, Expectorated/Coughed Respiratory Culture - Final Haemophilus influenzae Presumptive C albicans Discharge Diet: No Restrictions Discharge Activity: Return to Normal Activity, No Restrictions Call your doctor if you observe: Fever of 101 or Higher, Shortness of breath Home Medications: Medications to take at Discharge Albuterol Sulfate [Ventolin Hfa] 2 puff INHALATION Q6H PRN PRN 09/05/18 Prochlorperazine Maleate 10 mg PO Q6H PRN PRN 09/05/18 Sucralfate [Carafate] 1 gm PO 4X/DAY 09/05/18 Umeclidinium Brm/Vilanterol Tr [Anoro Ellipta 62.5-25 Mcg INH] 1 puff INHALATION DAILY 09/05/18 Acetaminophen [Tylenol] 1,000 mg PO Q4H PRN PRN 03/30/19 Gabapentin [Neurontin] 300 mg PO TID PRN PRN 03/30/19 Ondansetron HCl [Zofran] 4 mg PO 4X/DAY PRN PRN 03/30/19 proMETHazine tablet [Phenergan tablet] 25 mg PO Q6H PRN PRN #10 tab 06/04/19 Albuterol Sulfate [Proair Respiclick] 2 puff INHALATION Q6H PRN PRN 07/13/19 Amitriptyline HCl 25 mg PO QHS 07/13/19 Omeprazole 20 mg PO BID 07/13/19 Tolterodine Tartrate [Detrol LA] 4 mg PO DAILY 07/13/19 Albuterol Aerosols [Ventolin Aerosols] 2.5 mg INHALATION Q4HWA.RT PRN #30 vial.neb. 07/19/19 Albuterol Inhaler [Ventolin Hfa] 1 - 2 puff INHALATION Q4H PRN PRN #1 inhaler 07/19/19 Dexamethasone [Decadron] 4 mg PO DAILY #0 07/19/19 Guaifenesin [Mucinex] 600 mg PO BID #10 tab.er.12h 07/19/19 Lorazepam [Ativan] 1 mg PO BID PRN #0 07/19/19 Nebulizer [Aeroneb Go Nebulizer] 1 ea MC Q4H PRN #1 ea 07/19/19 Oxycodone HCl 10 - 20 mg PO Q4H PRN PRN 1 Days #1 07/19/19 Prednisone 10 mg PO DAILY #30 tab.ds.pk 07/19/19 levoFLOXacin tablet [Levaquin tablet] 750 mg PO DAILY@0600 #5 tab 07/19/19 Following Prescrptions Were Given to Patient: Nebulizer [Aeroneb Go Nebulizer] 1 ea MC Q4H PRN #1 ea PRN Reason: Shortness Of Breath Transmission Status: Pending to [facility] levoFLOXacin tablet [Levaquin tablet] 750 mg PO DAILY@0600 #5 tab Transmission Status: Pending to [facility] Guaifenesin [Mucinex] 600 mg PO BID #10 tab.er.12h Transmission Status: Pending to [facility] Prednisone 10 mg PO DAILY #30 tab.ds.pk Transmission Status: Pending to [facility] Albuterol Aerosols [Ventolin Aerosols] 2.5 mg INHALATION Q4HWA.RT PRN #30 vial.neb. PRN Reason: Shortness Of Breath Transmission Status: Pending to [facility] Albuterol Inhaler [Ventolin Hfa] 1 - 2 puff INHALATION Q4H PRN PRN #1 inhaler PRN Reason: Shortness Of Breath Transmission Status: Pending to [facility] Primary Care Physician: Alexandre Mora MD [Primary Care Provider] - Within 2 Weeks Please Follow Up With: Surya Salazar MD When: 2-4 weeks Please Follow Up With: Maira Hurt MD When: 1-2 weeks Disposition: Home Minutes spent on discharge:: 35 Patient Condition:: Fair Medical Necessity - Tobacco Use Smoking Status: Current every day smoker Tobacco Use: Cigarettes Meaningful Use Info Meaningful Use Diagnoses (Choose all that apply): None applicable Code Visit Inpatient E&M: 78064 Disch Hosp
[2019-07-19] MEDS: 0.9% NaCl Peripheral Flush Adult/Peds IV ×2 (13:14→14:07)
[2019-07-19] MEDS: Ensure Clear 120 ML Liquid PO (13:14)
--- NOTE | 2019-07-19 13:26 | CASEMGMT ---
Pt does qualify for home oxygen 3-4liters at rest and 6liters with ambulation at this time. As per previous discussion, pt would like home oxygen set up with [facility] at this time. Referral faxed to [facility] at this time. Kana ROTH CM
--- NOTE | 2019-07-19 13:33 | CASEMGMT ---
Therapy is recommending addl therapy at this time. This RN CM to room to discuss HHC and OP therapy with pt at this time and pt declines HHC and OP therapy at this time. Pt states 'my was a therapist for 20-some years and she can work with me, if I need it.' Pt updated on home oxygen at this time, voices understanding. Pt voices no further questions/concerns/needs at this time. Call to [facility] to verify referral received at this time and to get ETA on e-tank for discharge. Per [facility], they are sending rep with e-tank at this time. Kana ROTH CM
== END 2019-07-19 17:00 | disposition home or self-care (01) | DRG 189 ==
LOC: ED 19:03 → ICU 21:49 → PCU 07-14 10:33
PROVIDERS: Admitting Provider Family Medicine; Emergency Provider Emergency Medicine; Family Provider Family Medicine; PCP Family Medicine
DX: J96.01 Acute respiratory failure with hypoxia (principal); J14 Pneumonia due to Hemophilus influenzae; E43 Unspecified severe protein-calorie malnutrition; C34.90 Malignant neoplasm of unspecified part of unspecified bronchus or lung; C79.31 Secondary malignant neoplasm of brain; J44.1 Chronic obstructive pulmonary disease with (acute) exacerbation; J44.0 Chronic obstructive pulmonary disease with (acute) lower respiratory infection; I24.8 Other forms of acute ischemic heart disease; J96.02 Acute respiratory failure with hypercapnia; J20.6 Acute bronchitis due to rhinovirus; F17.210 Nicotine dependence, cigarettes, uncomplicated; Z92.3 Personal history of irradiation; Z79.899 Other long term (current) drug therapy; K21.9 Gastro-esophageal reflux disease without esophagitis; F32.9 Major depressive disorder, single episode, unspecified; M19.90 Unspecified osteoarthritis, unspecified site; M50.30 Other cervical disc degeneration, unspecified cervical region; M47.812 Spondylosis without myelopathy or radiculopathy, cervical region; Z68.21 Body mass index [BMI] 21.0-21.9, adult; G89.4 Chronic pain syndrome; G62.9 Polyneuropathy, unspecified
CPT/HCPCS: 36600; 71045; 71275; 80048; 80053; 80061; 82803; 83735; 84100; 84484; 85025; 87040; 87070; 87077; 87205; 87633; 93005; 93306; 94002; 94003; 94640; 94667; 94668; 97110; 97162; 97166; 97530; 97535; 97802; 99285; 99406; J7030; Q9957; A4216; C8929